=== PATIENT | male | born 1980 | race Caucasian/White ===

== ENCOUNTER 2022-10-10 08:37 | Inpatient (IN) | payer OTHER, SELFPAY ==
--- NOTE | ~2022-10-10 | US_ITS ---
EXAMINATION: US ABDOMEN LIMITED CLINICAL INFORMATION: Right upper quadrant pain. Elevated LFTs. Evaluate for obstruction.. COMPARISON: None available. TECHNIQUE: Real-time imaging of the right upper quadrant abdominal viscera. FINDINGS: PANCREAS: The pancreas is obscured by overlying gas. LIVER: The liver is enlarged in size measuring 22.2 cm in maximum length. The liver contour is normal. Parenchymal echogenicity is normal. No focal hepatic lesion. There is no intrahepatic biliary duct dilatation seen. There is moderate ascites. GALLBLADDER: Normal. The gallbladder is physiologically distended without evidence of stones, sludge, polyps, wall thickening or pericholecystic fluid. COMMON BILE DUCT: Normal in caliber measuring 0 point/0.5 cm in diameter. RIGHT KIDNEY: Normal. No hydronephrosis. No renal calculi or focal parenchymal lesions. The kidney measures 11.5 cm in maximum dimension. FREE FLUID: None. US/US abdomen limited IMPRESSION: 1. Moderate ascites. 2. Hepatomegaly. No focal lesion seen. 3. Rest of the limited abdomen ultrasound is unremarkable.
--- NOTE | ~2022-10-10 | US_ITS ---
EXAMINATION: Ultrasound-guided paracentesis CLINICAL INFORMATION: Ascites COMPARISON: Limited abdominal ultrasound from earlier the same day TECHNIQUE: Procedure and risks and benefits including bleeding, infection and low blood pressure were discussed with the patient and informed consent was obtained. The left lower quadrant was prepped and draped in the usual sterile fashion. The skin and soft tissues were anesthetized with 1% lidocaine plain. Using ultrasound guidance and a 4 Afghan one-step system, access to the ascitic fluid was obtained. 2 L of clear yellow fluid was removed. Diagnostic specimen was sent as requested by the ordering physician. FINDINGS: There is a moderate amount of ascites. US/US paracentesis abd w/image IMPRESSION: Ultrasound-guided paracentesis.
[2022-10-10 08:51] VITALS: BP 132/89; PULSE 104; RESP 20; TEMP 35.9; O2SAT 97; BMI 28.1
[2022-10-10 09:10] LABS: Hematocrit 40.7 % (42.0-52.0); Hemoglobin 14.5 g/dl (14.0-18.0); Mean Corpuscular HGB Conc 35.6 g/dl (31.0-36.0); Mean Corpuscular Hemoglobin 37.3 pg (27.0-33.0); Mean Corpuscular Volume 104.6 fL (80.0-98.0); Mean Platelet Volume 11.4 fL (9.4-12.4); Platelet Count 268 X10*3/uL (160-400); Red Blood Count 3.89 X10*6/uL (4.60-5.80); Red Cell Distribution Width 15.7 % (11.0-16.0)
[2022-10-10 09:15] LABS: WBC ABN SCTR FOR CBC 1
[2022-10-10 09:26] LABS: Alanine Aminotransferase 78 U/L (0-40); Albumin Level 2.9 g/dL (3.5-5.0); Alkaline Phosphatase 320 U/L (39-117); Anion Gap 12 (12-20); Aspartate Amino Transferase 287 U/L (5-37); Bilirubin Direct 0.7 mg/dL (0.0-0.5); Bilirubin Total 1.8 mg/dL (0.0-1.0); Blood Urea Nitrogen 5 mg/dL (9-16); Calcium 8.6 mg/dL (8.4-10.2); Carbon Dioxide 28 mmol/L (22-29); Chloride 103 mmol/L (96-108); Creatinine Clr Calc Pharmacy 137.7; Estimated Glomerular Filt Rate > 60; Glucose Random 126 mg/dL (60-115); Lipase 21 U/L (8-78); Potassium 4.4 mmol/L (3.3-5.1); Sodium 139 mmol/L (135-145); Total Protein 6.9 g/dL (6.5-8.0)
[2022-10-10 09:44] LABS: Band Neutrophils Percent 6 % (3-5); Basophils Percent Manual 1 % (0-2); Eosinophils Percent Manual 2 % (0-4); Lymphocytes Percent Manual 5 % (20-40); Monocytes Percent Manual 4 % (2-11); Neutrophils Percent Manual 82 % (45-73); Platelet Estimate NORMAL (NORMAL); Platelet Morphology Comment NORMAL; RBC Morphology NORMAL
[2022-10-10 10:02] LABS: Basophils Abs Manual 0.1 X10*3/uL (0.0-0.2); Eosinophils Absolute Manual 0.3 X10*3/uL (0.0-0.4); Lymphocytes Absolute Manual 0.7 X10*3/uL (1.2-4.9); Monocytes Absolute Manual 0.6 X10*3/uL (0.1-1.2); Neutrophils Absolute Manual 13.1 X10*3/uL (2.0-8.3); White Blood Count 14.9 X10*3/uL (4.8-10.8)
[2022-10-10 10:41] LABS: INTERNATIONAL NORM RATIO 1.1 (0.9-1.1); Prothrombin Time 13.2 SEC (10.0-13.1)
--- NOTE | 2022-10-10 12:17 | ED.ABDPAIN ---
HPI - Abdominal Pain General Chief Complaint: Abdominal Pain Stated Complaint: Liver issues/Leg swelling Time Seen by Provider: 10/10/22 09:15 Source: patient and family (Mother, Ximena who was a nurse) Mode of arrival: ambulatory Limitations: no limitations History of Present Illness HPI narrative: 42-year-old male who presents emergency department for evaluation abdominal distension, abdominal pain, diarrhea. The patient states that he has been having diarrhea for at least 3 weeks. He was seen [address] [facility] for abdominal distension and had a CT scan that showed fibrosis of the liver. The patient does drink greater than 12 shots of vodka per day. He states that he has been drinking for 2 years with no period of sobriety. He states that he has had frequent episodes of diarrhea which she describes as watery and brown. At least 12 per day. He has had nausea with no vomiting. He was treated with Zofran and Ativan at [facility] with improvement of his nausea. States that he has noted some hematuria but no other symptoms. He denied fever, chills, chest pain, shortness of breath, dyspnea on exertion, frequency, dysuria, black stools or bloody stools. He has noted significant swelling of his lower extremities. Related Data Allergies Allergy/AdvReac Type Severity Reaction Status Date / Time No Known Allergies Allergy Verified 10/10/22 09:39 Review of Systems Review of Systems Yes all other systems are reviewed and are negative [facility] Past Medical History [facility] Narrative: Past medical history: Hypertension. Past surgical history: None. Social history: Patient smokes 1/2 pack cigarettes per day for 25 years. He drinks greater than 10 shots of vodka per day. He denies drug use. Social History Social History Advance Directives: No Advance Directives Information Provided: Yes Physical Exam ED Vital Signs: Vital Signs - 24 hr 10/10/22 08:51 10/10/22 15:20 10/10/22 16:13 Temperature 96.7 F L 97.9 F 97.7 F Pulse Rate 104 H 78 79 Respiratory Rate 20 16 18 Blood Pressure 132/89 130/86 140/89 H Pulse Oximetry 97 97 99 Oxygen Delivery Method Room Air Room Air Room Air BMI result Body Mass Index 28.1 Const General: cooperative and no acute distress Orientation/consciousness: oriented to person and oriented to place Limitations: no limitations HENMT Head: Yes normal to inspection, Yes normocephalic and Yes atraumatic Ears: external ears normal General nose exam: Normal external nose present Face and sinus: Yes normal facial exam Mouth: Normal oral and palatal mucosa present Throat: Yes posterior oropharynx normal Eyes General: appearance normal, both eyes and all related structures Pupils: Equal, round and reactive pupils present Neck Neck: Yes normal visual inspection, Yes no lymphadenopathy, Yes trachea midline and Yes supple Chest Chest palpation & inspection: normal inspection of the chest and normal palpation of entire chest wall Resp Effort & Inspection: normal respiratory effort and able to speak in complete sentences Auscultation: clear to auscultation bilaterally Cardio Rate: regular rate Rhythm: regular rhythm Heart sounds: S1 normal heart sound present, S2 normal heart sound present and no murmurs GI Other: Patient's abdomen is distended secondary to ascites, mild diffuse tenderness, no rebound, no voluntary or involuntary guarding, normoactive bowel sounds General: Yes no CVA tenderness Back/Spine/Pelvis Back: no CVA tenderness Skin General skin exam: no rashes or lesions noted Neuro General: oriented to person and oriented to place Cranial nerves: Yes Equal, round and reactive pupils present Cognition (Neuro): normal cognition Motor exam (neuro): 5/5 motor strength present throughout Extrem General: Yes normal to inspection Psych Appearance: grossly normal Speech and movement: Normal speech and movement present Affect: normal affect Thought content: Normal thought content present Medical Decision Making Medical Decision Making MDM Narrative: 42-year-old male with history of hypertension who drinks greater than 10 shots of vodka per day for 2 years with no period of sobriety who presents emergency department for distended abdomen which is consistent with ascites. Patient has also had frequent diarrhea. I ordered the following tests on the patient: CBC, BMP, liver panel, lipase, PT/INR, PTT, urinalysis, C diff, GI panel, right upper quadrant ultrasound and abdominal ultrasound for ascites. I did discuss large volume paracentesis with Interventional Radiology and possible they will try to do this today. Patient was also ordered to get Librium 100 mg orally to try to prevent alcohol withdrawal. 1604: My interpretation of patient's laboratory evaluation is as follows: WBC elevated 14,900 with left shift-82 neutrophils, 6 bands. Elevated MCV 104.6. Normal coags. Glucose elevated 126. Total bilirubin elevated 1.8. Direct bilirubin elevated 0.7. AST, ALT and alk-phos were elevated 287, 78 and 320. Albumin is low 2.9 lipase was normal 21. Ascites fluid revealed 423 wbc's 20% neutrophils, 8% lymphocytes and 7% monocytes. C diff and GI panel pending. Hepatitis profile pending Ultrasound of the patient's right upper quadrant revealed an enlarged liver and ascites. Patient had paracentesis done by interventional radiologist and had 2 L of ascites fluid drained from his abdomen Given the elevated WBC count in his ascites fluid and his elevated serum WBC with the left shift patient will be treated for spontaneous bacterial peritonitis with ceftriaxone 1 g IV. I will discuss admission with the covering hospitalist, this patient is at high risk for having alcohol withdrawal symptoms as well. 1737: I did discuss the patient over tiger text with the admitting hospitalist, Lindy Mayes. Differential Diagnosis Differential diagnosis includes was not limited to acute hepatitis, alcoholic hepatitis, alcoholic cirrhosis, spontaneous bacterial peritonitis, C difficile colitis, infectious colitis, viral hepatitis Admission/Observation Consideration of admission/observation: Escalation of care including admission/observation considered Consult Healthcare Provider Management of the patient was discussed with: Hospitalist and Irrigation Foreman (Rehab Spec, Dr. Salcido) Lab Data MDM Lab Attestation statement: I reviewed the patient's lab results. 10/10/22 09:03 10/10/22 09:03 Labs: Lab Results 10/10/22 10/10/22 10/10/22 Range/Units 09:03 09:03 10:28 WBC 14.9 H (4.8-10.8) X10*3/uL RBC 3.89 L (4.60-5.80) X10*6/uL Hgb 14.5 (14.0-18.0) g/dl Hct 40.7 L (42.0-52.0) % MCV 104.6 H (80.0-98.0) fL MCH 37.3 H (27.0-33.0) pg MCHC 35.6 (31.0-36.0) g/dl RDW 15.7 (11.0-16.0) % Plt Count 268 (160-400) X10*3/uL MPV 11.4 (9.4-12.4) fL Immature Gran % (Auto) Cancelled Neut % (Auto) Cancelled Lymph % (Auto) Cancelled [place] % (Auto) Cancelled Eos % (Auto) Cancelled Baso % (Auto) Cancelled Lymph # (Auto) Cancelled [place] # (Auto) Cancelled Eos # (Auto) Cancelled Baso # (Auto) Cancelled Abs Immat Gran (auto) Cancelled Absolute Neuts (auto) Cancelled Absolute Nucleated RBC 0.000 (0.0-0.012) X10*3/uL Nucleated RBC % (auto) 0.0 (0.0-0.2) /100WBC Neutrophils % (Manual) 82 H (45-73) % Band Neutrophils % 6 H (3-5) % Lymphocytes % (Manual) 5 L (20-40) % Monocytes % (Manual) 4 (2-11) % Eosinophils % (Manual) 2 (0-4) % Basophils % (Manual) 1 (0-2) % Abs Neuts (Manual) 13.1 H (2.0-8.3) X10*3/uL Lymphocytes # (Manual) 0.7 L (1.2-4.9) X10*3/uL Monocytes # (Manual) 0.6 (0.1-1.2) X10*3/uL Eosinophils # (Manual) 0.3 (0.0-0.4) X10*3/uL Basophils # (Manual) 0.1 (0.0-0.2) X10*3/uL Platelet Estimate NORMAL (NORMAL) Plt Morphology Comment NORMAL RBC Morphology NORMAL PT 13.2 H (10.0-13.1) SEC INR 1.1 (0.9-1.1) APTT 34.0 (26.0-36.4) SEC Sodium 139 (135-145) mmol/L Potassium 4.4 (3.3-5.1) mmol/L Chloride 103 (96-108) mmol/L Carbon Dioxide 28 (22-29) mmol/L Anion Gap 12 (12-20) BUN 5 L (9-16) mg/dL Creatinine 0.76 (0.5-1.4) mg/dL Estim Creat Clear Calc 137.7 Estimated GFR > 60 Random Glucose 126 H (60-115) mg/dL Lactic Acid (0.5-2.0) mmol/L Calcium 8.6 (8.4-10.2) mg/dL Total Bilirubin 1.8 H (0.0-1.0) mg/dL Direct Bilirubin 0.7 H (0.0-0.5) mg/dL AST 287 H (5-37) U/L ALT 78 H (0-40) U/L Alkaline Phosphatase 320 H (39-117) U/L Total Protein 6.9 (6.5-8.0) g/dL Albumin 2.9 L (3.5-5.0) g/dL Lipase 21 (8-78) U/L Peritoneal WBC X10*3/uL Peritoneal RBC X10*6/uL Periton Neutrophils % Periton Lymphocytes % Peritoneal Monocytes % Peritoneal Other Cells % C. difficile Tox B Gene (Negative) C. difficile Toxin A&B (Negative) C. difficile Interpret 10/10/22 10/10/22 10/10/22 Range/Units 14:40 15:13 16:44 WBC (4.8-10.8) X10*3/uL RBC (4.60-5.80) X10*6/uL Hgb (14.0-18.0) g/dl Hct (42.0-52.0) % MCV (80.0-98.0) fL MCH (27.0-33.0) pg MCHC (31.0-36.0) g/dl RDW (11.0-16.0) % Plt Count (160-400) X10*3/uL MPV (9.4-12.4) fL Immature Gran % (Auto) Neut % (Auto) Lymph % (Auto) [place] % (Auto) Eos % (Auto) Baso % (Auto) Lymph # (Auto) [place] # (Auto) Eos # (Auto) Baso # (Auto) Abs Immat Gran (auto) Absolute Neuts (auto) Absolute Nucleated RBC (0.0-0.012) X10*3/uL Nucleated RBC % (auto) (0.0-0.2) /100WBC Neutrophils % (Manual) (45-73) % Band Neutrophils % (3-5) % Lymphocytes % (Manual) (20-40) % Monocytes % (Manual) (2-11) % Eosinophils % (Manual) (0-4) % Basophils % (Manual) (0-2) % Abs Neuts (Manual) (2.0-8.3) X10*3/uL Lymphocytes # (Manual) (1.2-4.9) X10*3/uL Monocytes # (Manual) (0.1-1.2) X10*3/uL Eosinophils # (Manual) (0.0-0.4) X10*3/uL Basophils # (Manual) (0.0-0.2) X10*3/uL Platelet Estimate (NORMAL) Plt Morphology Comment RBC Morphology PT (10.0-13.1) SEC INR (0.9-1.1) APTT (26.0-36.4) SEC Sodium (135-145) mmol/L Potassium (3.3-5.1) mmol/L Chloride (96-108) mmol/L Carbon Dioxide (22-29) mmol/L Anion Gap (12-20) BUN (9-16) mg/dL Creatinine (0.5-1.4) mg/dL Estim Creat Clear Calc Estimated GFR Random Glucose (60-115) mg/dL Lactic Acid 1.2 (0.5-2.0) mmol/L Calcium (8.4-10.2) mg/dL Total Bilirubin (0.0-1.0) mg/dL Direct Bilirubin (0.0-0.5) mg/dL AST (5-37) U/L ALT (0-40) U/L Alkaline Phosphatase (39-117) U/L Total Protein (6.5-8.0) g/dL Albumin (3.5-5.0) g/dL Lipase (8-78) U/L Peritoneal WBC 0.423 X10*3/uL Peritoneal RBC < 0.002 X10*6/uL Periton Neutrophils 20 % Periton Lymphocytes 8 % Peritoneal Monocytes 70 % Peritoneal Other Cells 2 % C. difficile Tox B Gene POSITIVE A* (Negative) C. difficile Toxin A&B Negative (Negative) C. difficile Interpret SEE NOTE Medications Administered Discontinued Medications Generic Name Dose Route Start Last Admin Trade Name Freq PRN Reason Stop Dose Admin Chlordiazepoxide HCl 100 mg 10/10/22 12:15 10/10/22 12:34 Chlordiazepoxide Hcl 25 Mg Capsule PO 10/10/22 12:16 100 mg ONCE ONE Administration Ceftriaxone Sodium 1 gm/ 50 mls @ 100 mls/hr 10/10/22 16:02 10/10/22 16:54 Sodium Chloride IV 10/10/22 16:31 100 mls/hr ONCE ONE Administration Lidocaine HCl 5 ml 10/10/22 15:08 10/10/22 15:08 Lidocaine Hcl 1 % Mpf 5 Ml Vial SUBCUT 10/10/22 15:09 5 ml ONCE ONE Administration Loperamide HCl 2 mg 10/10/22 12:38 10/10/22 12:52 Loperamide Hcl 2 Mg Capsule PO 10/10/22 12:39 2 mg ONCE ONE Administration Discharge Plan Discharge Clinical Impression: Acute alcoholic hepatitis, Ascites, SBP (spontaneous bacterial peritonitis), Alcohol use disorder Patient Disposition: Admitted As Inpatient
[2022-10-10] MEDS: chlordiazePOXIDE HCl 25 MG CAPSULE 100 MG PO (12:34)
[2022-10-10] MEDS: Loperamide HCl 2 MG CAPSULE PO (12:52)
--- NOTE | 2022-10-10 14:10 | PC.NURSE ---
pt going off unit to IR for ultrasound guided paracentecis
[2022-10-10] MEDS: Lidocaine HCl 1 % MPF 5 ML VIAL SUBCUT (15:08)
[2022-10-10 15:20] VITALS: BP 130/86; PULSE 78; RESP 16; TEMP 36.6; O2SAT 97
[2022-10-10 15:30] LABS: MN% 81.2 %; PMN% 18.8 %; WBC Peritoneal Fluid 0.423 X10*3/uL
[2022-10-10 15:34] LABS: RBC Peritoneal Fluid < 0.002 X10*6/uL
[2022-10-10 15:54] LABS: BF Shift QC OK YES; Lymphocyte Peritoneal Fl 8 %; Monocytes Peritoneal Fl 70 %; Neutrophils Peritoneal Fluid 20 %; Other Peritioneal Fl 2 %
[2022-10-10 16:13] VITALS: BP 140/89; PULSE 79; RESP 18; TEMP 36.5; O2SAT 99
[2022-10-10 16:53] LABS: CDiff Gene PCR POSITIVE (Negative)
[2022-10-10] MEDS: cefTRIAXone sodium 1 GM in 0.9 % Sodium Chloride 50 ML IV (16:54)
[2022-10-10 16:55] LABS: CDiff Toxin Negative (Negative)
[2022-10-10 16:56] LABS: CDIFF Internal ctrl Dots and bkg OK (V)
[2022-10-10 17:04] LABS: Lactic Acid 1.2 mmol/L (0.5-2.0)
--- NOTE | 2022-10-10 18:01 | P.HPHOSP_ITS ---
The patient was seen and evaluated with CARISA Steven. I agree with her note, assessment and plan with the following. Rest of evaluations by YARN DRY ROOM WORKER note. History of Present Illness Date of Service: 10/10/22 Attending physician on admission: Stephan Thomas Chief Complaint: abd pain 42-year-old male with history of hypertension, anxiety, and alcohol dependence presents to the ED earlier today for evaluation of diffuse abdominal pain ongoing for about 6 weeks. There has also been up to 12 episodes of watery diarrhea on a daily basis which he has been taking Imodium 4 as well as nausea and vomiting. He denies any melena or hematochezia. He was seen 3 weeks prior at [facility] for abdominal pain/distension with CT scan that showed fibrosis of the liver. He states he has been drinking about 10-12 shots of vodka on a daily basis for nearly 2 years without any period of sobriety. He states his urine has been dark but no dysuria, sudeep blood, increased urinary frequency, or flank pain. No fevers, chills, lightheadedness, shortness of breath, chest pain. He has had significant swelling of the lower extremities bilaterally. On arrival VSS. Leukocytosis of 14.9 with bandemia 6%. Coag studies unremarkable. Renal function normal, electrolyte levels normal. AST 287, ALT 78, total bilirubin 1.8, direct bilirubin 0.7. Abd US performed showing moderate ascites, hepatomegaly without focal lesion. Paracentesis performed revealing 0.423x10^3 WBC, 20% neutrophils, 2L fluid removed. Treated empirically for SBP x 1dose with IV ceftriaxone. GI panel pending. CDiff gene positive, toxin A&B negative. Hepatitic panel pending. In the ED, treated with 100 mg Librium, loperamide, and p.o. vancomycin. Review of Systems Review of Systems: General: No fevers, malaise, unintentional weight loss HEENT: No blurred vision, diplopia. No sore throat, nasal congestion, rhinorrhea, sinus pain, ear pain Cardiovascular: No chest pain, palpitations. +BLE edema Respiratory: No shortness of breath, wheezing, cough GI: +abd pain, +n/v/d. No diarrhea, constipation, melena, hematochezia : No dysuria, hematuria, increased urinary frequency, decreased urinary output MSK: No myalgia, back pain Neuro: No headaches, weakness, paresthesias Skin: No rashes or lesions [facility] Medical History (Updated 10/10/22 @ 19:22 by CARISA Steven) Alcohol use disorder Anxiety Cigarette smoker Hypertension Family History (Updated 10/10/22 @ 18:37 by CARISA Steven) Father COPD (chronic obstructive pulmonary disease) Maternal Grandmother MD (myocardial infarction) Social History (Updated 10/10/22 @ 18:37 by CARISA Steven) Alcohol intake: current Alcohol intake frequency: 3 or more drinks per day Patient Tobacco Use Status: Current everyday Tobacco user Tobacco use type: Cigarette Cigarette Packs Per Day: 0.5 Use of substances other than those prescribed or required for medical reasons: No Advance Directives: No Advance Directives Information Provided: Yes Meds Allergies Allergy/AdvReac Type Severity Reaction Status Date / Time No Known Allergies Allergy Verified 10/10/22 09:39 Active Medications: Current Medications Acetaminophen (Acetaminophen 325 Mg Tablet) 650 mg PO Q6H PRN PRN Reason: Pain, Mild (Pain Scale 1-3) Docusate Sodium (Docusate Sodium 100 Mg Capsule) 100 mg PO DAILY PRN PRN Reason: Constipation Enoxaparin Sodium (Enoxaparin Sodium 40 Mg/0.4 Ml Syringe) 40 mg SUBCUT Q24H [facility] Folic Acid (Folic Acid 1 Mg Tablet) 1 mg PO DAILY [facility] Ondansetron HCl (Ondansetron Hcl 4 Mg/2 Ml Vial) 4 mg IVPUSH Q8H PRN PRN Reason: Nausea and Vomiting Pharmacy Consult (Consult Rx Etoh Phenob Im/Po) 1 each MISCELLANE ONCE PRN; Protocol PRN Reason: Consult order Phenobarbital (Phenobarbital 15 Mg Tablet) 45 mg PO BID MARVEL; Protocol Stop: 10/12/22 21:01 Phenobarbital (Phenobarbital 15 Mg Tablet) 15 mg PO BID MARVEL; Protocol Stop: 10/14/22 21:01 Phenobarbital (Phenobarbital 15 Mg Tablet) 15 mg PO DAILY MARVEL; Protocol Stop: 10/16/22 09:01 Phenobarbital Sodium (Phenobarbital Sodium 130 Mg/Ml Vial Im Q3hx2) 210 mg IM Q3H MARVEL; Protocol Stop: 10/11/22 00:01 Prednisolone Sodium Phosphate (Prednisolone Sodium Phosphate 15 Mg/5 Ml Solution) 40 mg PO DAILY MARVEL Sodium Chloride (0.9 % Sodium Chloride Flush 3 Ml Syringe) 3 ml IVFLUSH QSHIFT [place] Thiamine HCl (Thiamine Hcl 100 Mg Tablet) 100 mg PO DAILY [facility] Vancomycin HCl (Vancomycin Hcl 125 Mg Capsule) 125 mg PO Q6H [facility] Home Medications Medication Instructions Recorded Confirmed Last Taken Type atenolol 50 mg tablet 25 mg PO DAILY 10/10/22 10/10/22 Unknown History multivitamin 1 tab PO DAILY 10/10/22 10/10/22 Unknown History potassium chloride 10 mEq 20 meq PO BID 10/10/22 10/10/22 Unknown History tablet,extended release Physical Exam Vital Signs and Narrative: Vital Signs: Last Vital Signs Temp 97.7 F 10/10/22 16:13 Pulse 79 10/10/22 16:13 Resp 18 10/10/22 16:13 BP 140/89 H 10/10/22 16:13 Pulse Ox 99 10/10/22 16:13 O2 Del Method Room Air 10/10/22 16:13 BMI result Body Mass Index 28.1 Constitutional - Awake and Alert, No apparent distress Eyes - PERRLA, EOMI Cardiovascular - S1S2, RRR, 3+pitting edema BLE Respiratory - Normal lung expansion, Normal respiratory effort, No respiratory distress, CTA bilaterally Gastrointestinal - softly distended with diffuse ttp without guarding or rebound. +BS Extremities - no calf tenderness bilaterally, no swelling Skin - Warm/Dry Neurological - Alert & oriented x3, CN II-XII in tact, 5/5 strength BUE and BLE Psychological - Appropriate affect Results Labs 10/10/22 09:03 10/10/22 09:03 Labs: Laboratory Results - last 24 hr 10/10/22 10/10/22 10/10/22 09:03 09:03 10:28 MCV 104.6 H MCH 37.3 H MCHC 35.6 RDW 15.7 Plt Count 268 MPV 11.4 Immature Gran % (Auto) Cancelled Neut % (Auto) Cancelled Lymph % (Auto) Cancelled [place] % (Auto) Cancelled Eos % (Auto) Cancelled Baso % (Auto) Cancelled Lymph # (Auto) Cancelled [place] # (Auto) Cancelled Eos # (Auto) Cancelled Baso # (Auto) Cancelled Abs Immat Gran (auto) Cancelled Absolute Neuts (auto) Cancelled Absolute Nucleated RBC 0.000 Nucleated RBC % (auto) 0.0 Neutrophils % (Manual) 82 H Band Neutrophils % 6 H Lymphocytes % (Manual) 5 L Monocytes % (Manual) 4 Eosinophils % (Manual) 2 Basophils % (Manual) 1 Abs Neuts (Manual) 13.1 H Lymphocytes # (Manual) 0.7 L Monocytes # (Manual) 0.6 Eosinophils # (Manual) 0.3 Basophils # (Manual) 0.1 Platelet Estimate NORMAL Plt Morphology Comment NORMAL RBC Morphology NORMAL PT 13.2 H INR 1.1 APTT 34.0 Anion Gap 12 Estim Creat Clear Calc 137.7 Estimated GFR > 60 Random Glucose 126 H Lactic Acid Calcium 8.6 Total Bilirubin 1.8 H Direct Bilirubin 0.7 H AST 287 H ALT 78 H Alkaline Phosphatase 320 H Total Protein 6.9 Albumin 2.9 L Lipase 21 Peritoneal WBC Peritoneal RBC Periton Neutrophils Periton Lymphocytes Peritoneal Monocytes Peritoneal Other Cells C. difficile Tox B Gene C. difficile Toxin A&B C. difficile Interpret 10/10/22 10/10/22 10/10/22 14:40 15:13 16:44 MCV MCH MCHC RDW Plt Count MPV Immature Gran % (Auto) Neut % (Auto) Lymph % (Auto) [place] % (Auto) Eos % (Auto) Baso % (Auto) Lymph # (Auto) [place] # (Auto) Eos # (Auto) Baso # (Auto) Abs Immat Gran (auto) Absolute Neuts (auto) Absolute Nucleated RBC Nucleated RBC % (auto) Neutrophils % (Manual) Band Neutrophils % Lymphocytes % (Manual) Monocytes % (Manual) Eosinophils % (Manual) Basophils % (Manual) Abs Neuts (Manual) Lymphocytes # (Manual) Monocytes # (Manual) Eosinophils # (Manual) Basophils # (Manual) Platelet Estimate Plt Morphology Comment RBC Morphology PT INR APTT Anion Gap Estim Creat Clear Calc Estimated GFR Random Glucose Lactic Acid 1.2 Calcium Total Bilirubin Direct Bilirubin AST ALT Alkaline Phosphatase Total Protein Albumin Lipase Peritoneal WBC 0.423 Peritoneal RBC < 0.002 Periton Neutrophils 20 Periton Lymphocytes 8 Peritoneal Monocytes 70 Peritoneal Other Cells 2 C. difficile Tox B Gene POSITIVE A* C. difficile Toxin A&B Negative C. difficile Interpret SEE NOTE Imaging Radiologist's Impressions: Impressions Abdomen Ultrasound 10/10/22 11:43 IMPRESSION: 1. Moderate ascites. 2. Hepatomegaly. No focal lesion seen. 3. Rest of the limited abdomen ultrasound is unremarkable. Paracentesis Ultrasound 10/10/22 14:55 IMPRESSION: Ultrasound-guided paracentesis. Assessment and Plan (1) Alcohol use disorder: Status: Acute (2) Acute alcoholic hepatitis: Status: Acute (3) C. difficile colitis: Status: Acute Plan 42-year-old male with history of hypertension, anxiety, and alcohol dependence admitted for acute alcoholic hepatitis, CDiff, and etoh withdrawal #Acute alcoholic hepatitis -Total bili 1.8, direct bilirubin 0.7, AST 287, ALT 78, alkaline phosphatase 320 -Maddrey's score 16. Defer steroids at this time -Paracentesis performed -2L. No SBP -Initiate spironolactone 12.5mg, increase as tolerated. Consider adding lasix once diarrhea resolved -Appreciate GI input -Ondansetron prn -Pain management -hepatitis panel pending #Acute CDiff colitis -PO vanco (initiated 10/10) -Apprecaite GI input -clear liquid diet, advance as tolerated #Alcohol dependence -Monitor on CIWA -phenobarb per protocol -Addiction med consult #HTN -continue atenolol DVT prophylaxis- lovenox Full code Pt requires inpt stay at least 2 midnights for management of acute alcoholic hepatitis and acute Cdiff colitis Time Spent With Patient Time: Total time managing care of this patient today ____ minutes. Quality Stroke Does the patient have a stroke diagnosis?: No VTE Prior VTE?: No VTE Risk Level:: Medical - moderate - high VTE Device Contraindication: Treatment Not Indicated VTE Drug Contraindication: N/A - Med Ordered
--- NOTE | 2022-10-10 18:19 | PHA.MEDREC ---
Pharmacy Consult ? Medication Reconciliation Pharmacy has completed the medication reconciliation.
[2022-10-10] MEDS: prednisoLONE sodium phosphate 15 MG/5 ML SOLUTION 40 MG PO (18:24)
[2022-10-10] MEDS: Thiamine HCL 100 MG TABLET PO (18:24)
[2022-10-10] MEDS: vancomycin HCL 125 MG CAPSULE 250 MG PO (18:24)
[2022-10-10] MEDS: Folic Acid 1 MG TABLET PO (18:24)
[2022-10-10] MEDS: PHENobarbitaL sodium 130 MG/ML IM ONCE 283 MG IM (18:24)
[2022-10-10] MEDS: Enoxaparin Sodium 40 MG/0.4 ML SYRINGE SUBCUT (18:25)
[2022-10-10 18:39] VITALS: BP 133/93; PULSE 89; RESP 16; TEMP 36.7; O2SAT 97
[2022-10-10 21:04] VITALS: BP 118/79; PULSE 78; RESP 18; TEMP 36.6; O2SAT 95
[2022-10-10] MEDS: Spironolactone 25 MG TABLET 12.5 MG PO (21:08)
[2022-10-10] MEDS: Nicotine 14 MG PATCH.TD24 TRANSDERMA (21:08)
[2022-10-10] MEDS: PHENobarbitaL sodium 130 MG/ML VIAL IM Q3Hx2 210 MG IM (21:09)
--- NOTE | 2022-10-10 21:10 | PC.NURSE ---
This investment underwriter assumed care of this Pt at 1900. Pt A&Ox4, denies any pain. Pt ambulated to BR with steady gait. VSS. CIWA score 4. Medicated per JUL. C-diff precautions.
[2022-10-10] MEDS: 0.9 % Sodium Chloride Flush 3 ML SYRINGE IVFLUSH (23:01)
[2022-10-10] MEDS: vancomycin HCL 125 MG CAPSULE PO (23:01)
[2022-10-10 23:03] VITALS: BP 124/88; PULSE 86; RESP 18; O2SAT 96
--- NOTE | 2022-10-10 23:28 | PC.NURSE ---
Nurse to nurse report given Gabriela, Pt will be transported to room 457, Pt aware of plan.
[2022-10-11] VITALS: BP 125/82; PULSE 88; RESP 20; TEMP 36.1; O2SAT 96
[2022-10-11] MEDS: PHENobarbitaL sodium 130 MG/ML VIAL IM Q3Hx2 210 MG IM (00:27)
[2022-10-11 01:45] VITALS: BMI 28.1
[2022-10-11 04:45] LABS: Hepatitis A Antibody IgM 0.23 Index (0-0.79); Hepatitis B Core Antibody Nonreactive (Nonreactive); ~Hepatitis A Antibody IgM Nonreactive (Nonreactive); ~Hepatitis B Surface Antibody NONREACTIVE (Nonreactive); ~Hepatitis C Antibody Nonreactive (Nonreactive)
[2022-10-11 05:33] LABS: HBc Num1 0.15 S/CO (0.00-0.79); HBsAGNum1 0.32 S/CO (0.00-0.99); ~HepC Num1 0.18 S/CO (0.00-0.79)
[2022-10-11 05:34] LABS: Hepatitis B Surface Antigen Nonreactive (Negative)
[2022-10-11 05:57] LABS: MANUAL DIFF FLAG NO
[2022-10-11 06:20] LABS: Alanine Aminotransferase 54 U/L (0-40); Albumin Level 2.5 g/dL (3.5-5.0); Alkaline Phosphatase 257 U/L (39-117); Anion Gap 13 (12-20); Aspartate Amino Transferase 165 U/L (5-37); Bilirubin Total 1.2 mg/dL (0.0-1.0); Blood Urea Nitrogen 6 mg/dL (9-16); Calcium 8.3 mg/dL (8.4-10.2); Carbon Dioxide 23 mmol/L (22-29); Chloride 104 mmol/L (96-108); Creatinine Clr Calc Pharmacy 161.1; Estimated Glomerular Filt Rate > 60; Glucose Random 130 mg/dL (60-115); Potassium 4.1 mmol/L (3.3-5.1); Sodium 136 mmol/L (135-145); Total Protein 5.9 g/dL (6.5-8.0)
[2022-10-11] MEDS: vancomycin HCL 125 MG CAPSULE PO ×4 (06:21→23:08)
[2022-10-11 06:22] LABS: Basophils Percent Auto 0.1 % (0-2); Hematocrit 38.2 % (42.0-52.0); Hemoglobin 13.4 g/dl (14.0-18.0); Imm Gran Abs Auto 0.04 X10*3/uL (0.00-0.03); Imm Gran Pct Auto 0.4 % (0.0-0.4); Lymphocytes Absolute Auto 1.5 X10*3/uL (1.2-4.9); Lymphocytes Percent Auto 14.8 % (20-40); Mean Corpuscular HGB Conc 35.1 g/dl (31.0-36.0); Mean Corpuscular Hemoglobin 36.5 pg (27.0-33.0); Mean Corpuscular Volume 104.1 fL (80.0-98.0); Mean Platelet Volume 11.8 fL (9.4-12.4); Monocytes Absolute Auto 0.4 X10*3/uL (0.1-1.2); Monocytes Percent Auto 4.3 % (2-11); Neutrophils Absolute Auto 8.2 x10*3/uL (2.0-8.3); Neutrophils Percent Auto 80.4 % (45-73); Platelet Count 208 X10*3/uL (160-400); Red Blood Count 3.67 X10*6/uL (4.60-5.80); Red Cell Distribution Width 14.9 % (11.0-16.0); White Blood Count 10.2 X10*3/uL (4.8-10.8)
[2022-10-11 07:38] VITALS: BP 142/57; PULSE 80; RESP 16; TEMP 36.9; O2SAT 96
--- NOTE | 2022-10-11 09:05 | MHC.CM.PN ---
CM met with Patient at bedside. Patient lives in a 2 family house with his Brother living upstairs. 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 Home self care vs Recovery Team intervention r/t ETOH is the tentative plan and CM has initiated and will follow for dc planning. Patient is not Covid vax'd and his PCP is Dr. Otoniel Rockwell.
[2022-10-11] MEDS: atenoloL 25 MG TABLET PO (10:51)
[2022-10-11] MEDS: PHENobarbitaL 15 MG TABLET 45 MG PO ×2 (10:51→23:07)
[2022-10-11] MEDS: Multivitamin TABLET 1 TAB PO (10:52)
[2022-10-11] MEDS: Thiamine HCL 100 MG TABLET PO (10:52)
[2022-10-11] MEDS: Folic Acid 1 MG TABLET PO (10:53)
[2022-10-11] MEDS: Spironolactone 25 MG TABLET 12.5 MG PO (10:53)
[2022-10-11] MEDS: Nicotine 14 MG PATCH.TD24 TRANSDERMA (10:53)
--- NOTE | 2022-10-11 10:53 | P.PNIM_ITS ---
Subjective Subjective Date of Service: 10/11/22 Interval History: still with diarrhea, abd pain improved Physical Exam Vital Signs: Vital Signs: Last Vital Signs Temp 98.4 F 10/11/22 07:38 Pulse 80 10/11/22 07:38 Resp 16 10/11/22 07:38 BP 142/57 H 10/11/22 07:38 Pulse Ox 96 10/11/22 07:38 O2 Del Method Room Air 10/11/22 07:38 BMI result Body Mass Index 28.1 General: AO X 3, no acute distress Resp: CTA bilateral, no accessory muscles used CVS: S1,S2,RRR GI: soft, non tender, non distended Neuro: motor grossly intact, alert Psych: appropriate affect, appropriate insight Objective Data Active Medications Acetaminophen (Acetaminophen 325 Mg Tablet) 650 mg PO Q6H PRN PRN Reason: Pain, Mild (Pain Scale 1-3) Atenolol (Atenolol 25 Mg Tablet) 25 mg PO DAILY [facility]; Protocol Docusate Sodium (Docusate Sodium 100 Mg Capsule) 100 mg PO DAILY PRN PRN Reason: Constipation Enoxaparin Sodium (Enoxaparin Sodium 40 Mg/0.4 Ml Syringe) 40 mg SUBCUT Q24H [facility] Last Admin: 10/10/22 18:25 Dose: 40 mg Documented By: MC Folic Acid (Folic Acid 1 Mg Tablet) 1 mg PO DAILY [facility] Last Admin: 10/10/22 18:24 Dose: 1 mg Documented By: MC Loperamide HCl (Loperamide Hcl 2 Mg Capsule) 2 mg PO Q4H PRN PRN Reason: Diarrhea Multivitamins/Vitamin C (Multivitamin Tablet) 1 tab PO DAILY [facility] Nicotine (Nicotine 14 Mg Patch.Td24) 14 mg TRANSDERMA DAILY [facility] Last Admin: 10/10/22 21:08 Dose: 14 mg Documented By: SERRANLio Ondansetron HCl (Ondansetron Hcl 4 Mg/2 Ml Vial) 4 mg IVPUSH Q8H PRN PRN Reason: Nausea and Vomiting Pharmacy Consult (Consult Rx Etoh Phenob Im/Po) 1 each MISCELLANE ONCE PRN; Protocol PRN Reason: Consult order Phenobarbital (Phenobarbital 15 Mg Tablet) 45 mg PO BID [facility]; Protocol Stop: 10/12/22 21:01 Phenobarbital (Phenobarbital 15 Mg Tablet) 15 mg PO BID [facility]; Protocol Stop: 10/14/22 21:01 Phenobarbital (Phenobarbital 15 Mg Tablet) 15 mg PO DAILY [facility]; Protocol Stop: 10/16/22 09:01 Sodium Chloride (0.9 % Sodium Chloride Flush 3 Ml Syringe) 3 ml IVFLUSH QSHIFT [facility] Last Admin: 10/10/22 23:01 Dose: 3 ml Documented By: WESLEY Spironolactone (Spironolactone 25 Mg Tablet) 12.5 mg PO DAILY [facility]; Protocol Last Admin: 10/10/22 21:08 Dose: 12.5 mg Documented By: WESLEY Thiamine HCl (Thiamine Hcl 100 Mg Tablet) 100 mg PO DAILY [facility] Last Admin: 10/10/22 18:24 Dose: 100 mg Documented By: MC Vancomycin HCl (Vancomycin Hcl 125 Mg Capsule) 125 mg PO Q6H [facility] Last Admin: 10/11/22 06:21 Dose: 125 mg Documented By: ANTOIC Labs 10/11/22 05:52 10/11/22 05:52 Labs: Laboratory Results - last 24 hr 10/10/22 10/10/22 10/10/22 14:40 15:13 16:44 MCV MCH MCHC RDW Plt Count MPV Immature Gran % (Auto) Neut % (Auto) Lymph % (Auto) [place] % (Auto) Eos % (Auto) Baso % (Auto) Lymph # (Auto) [place] # (Auto) Eos # (Auto) Baso # (Auto) Abs Immat Gran (auto) Absolute Neuts (auto) Absolute Nucleated RBC Nucleated RBC % (auto) Anion Gap Estim Creat Clear Calc Estimated GFR Random Glucose Lactic Acid 1.2 Calcium Total Bilirubin AST ALT Alkaline Phosphatase Total Protein Albumin Peritoneal WBC 0.423 Peritoneal RBC < 0.002 Periton Neutrophils 20 Periton Lymphocytes 8 Peritoneal Monocytes 70 Peritoneal Other Cells 2 C. difficile Tox B Gene POSITIVE A* C. difficile Toxin A&B Negative C. difficile Interpret SEE NOTE Hepatitis A IgM Ab Hep Bs Antigen Hep Bs Antibody Hep B Core Total Ab Hepatitis C Ab (EIA) 10/10/22 10/11/22 10/11/22 16:44 05:52 05:52 MCV 104.1 H MCH 36.5 H MCHC 35.1 RDW 14.9 Plt Count 208 MPV 11.8 Immature Gran % (Auto) 0.4 Neut % (Auto) 80.4 H Lymph % (Auto) 14.8 L [place] % (Auto) 4.3 Eos % (Auto) 0.0 Baso % (Auto) 0.1 Lymph # (Auto) 1.5 [place] # (Auto) 0.4 Eos # (Auto) 0.0 Baso # (Auto) 0.0 Abs Immat Gran (auto) 0.04 H Absolute Neuts (auto) 8.2 Absolute Nucleated RBC 0.000 Nucleated RBC % (auto) 0.0 Anion Gap 13 Estim Creat Clear Calc 161.1 Estimated GFR > 60 Random Glucose 130 H Lactic Acid Calcium 8.3 L Total Bilirubin 1.2 H AST 165 H ALT 54 H Alkaline Phosphatase 257 H Total Protein 5.9 L Albumin 2.5 L Peritoneal WBC Peritoneal RBC Periton Neutrophils Periton Lymphocytes Peritoneal Monocytes Peritoneal Other Cells C. difficile Tox B Gene C. difficile Toxin A&B C. difficile Interpret Hepatitis A IgM Ab Nonreactive Hep Bs Antigen Nonreactive Hep Bs Antibody NONREACTIVE Hep B Core Total Ab Nonreactive Hepatitis C Ab (EIA) Nonreactive Microbiology Microbiology Results: Microbiology 10/10/22 14:40 Gram Stain - Final Ascites Fluid Routine Culture - Preliminary No growth to date. Anaerobic Culture - Preliminary No growth to date. Assessment and Plan (1) Alcohol use disorder: Status: Acute Plan 42M PMH of hypertension, anxiety, and alcohol dependence admitted with abd pain and diarrhea Acute alcoholic hepatitis mild, avoid etoh, monitor lfts alcohol dependence with withdrawal phenobarb, ciwa acute symptomatic acsites due to above s/p paracentesis, negative for sbp continue aldactone chronic diarrhea imodium prn outpatient follow up cdif pcr positive, toxin negative no acute cdif colitis colonizer only HTN continue atenolol DVT prophylaxis- lovenox Full code reason for continued hospitalization:active diarrhea, awaiting solid po tolerance Time Spent With Patient Time: Total time managing care of this patient today ____ minutes. Quality Stroke Does the patient have a stroke diagnosis?: No VTE Prior VTE?: No VTE Risk Level:: Medical - moderate - high VTE Device Contraindication: Treatment Not Indicated VTE Drug Contraindication: N/A - Med Ordered
[2022-10-11] MEDS: Loperamide HCl 2 MG CAPSULE PO ×2 (10:57→17:39)
[2022-10-11] MEDS: 0.9 % Sodium Chloride Flush 3 ML SYRINGE IVFLUSH ×3 (10:58→23:09)
[2022-10-11 12:47] LABS: Adenovirus F 40/41 Not Detected (Not Detect.); Astrovirus Not Detected (Not Detect.); Campylobacter Not Detected (Not Detect.); Cryptosporidium Not Detected (Not Detect.); Cyclospora cayetanensis Not Detected (Not Detect.); E. coli EAEC Not Detected (Not Detect.); E. coli EPEC Not Detected (Not Detect.); E. coli ETEC Not Detected (Not Detect.); E. coli STEC Not Detected (Not Detect.); Entamoeba histolytica Not Detected (Not Detect.); Giardia lamblia Not Detected (Not Detect.); Norovirus GI/GII Not Detected (Not Detect.); Plesiomonas shigelloides Not Detected (Not Detect.); Rotavirus A Not Detected (Not Detect.); Salmonella Not Detected (Not Detect.); Sapovirus Not Detected (Not Detect.); Shigella sp./EIEC Not Detected (Not Detect.); Vibrio Not Detected (Not Detect.); Vibrio Cholerae Not Detected (Not Detect.); Yersinia enterocolitica Not Detected (Not Detect.)
[2022-10-11 15:33] VITALS: BP 104/51; PULSE 96; RESP 17; TEMP 36.8; O2SAT 96
--- NOTE | 2022-10-11 16:04 | MHC.RECOVRN ---
This technical proposal writer met with patient after addiction consult was placed. Patient reports drinking daily 10 nips ETOH. Patient states in the past has not accessed levels of treatment for ETOH, no hx of ATS, CSS, TSS. Patient states has tried campral in the past, prescribed by PCP, patient states it was not helpful. Patient reports open to discussing harm reduction and recovery supports. Patient states has quit in the past knows what to do, is more interested in medications to help with physical symptoms like anxiety . Patient agreeable to addiction/recovery team returning with resources to review at the bedside.
[2022-10-11] MEDS: Enoxaparin Sodium 40 MG/0.4 ML SYRINGE SUBCUT (17:39)
[2022-10-11 19:47] VITALS: BP 119/69; PULSE 90; RESP 18; TEMP 36.8; O2SAT 95
[2022-10-12] VITALS: BP 115/64; PULSE 80; RESP 20; TEMP 36.9; O2SAT 97
[2022-10-12 06:08] LABS: Hematocrit 36.7 % (42.0-52.0); Hemoglobin 13.1 g/dl (14.0-18.0); Mean Corpuscular HGB Conc 35.7 g/dl (31.0-36.0); Mean Corpuscular Hemoglobin 37.3 pg (27.0-33.0); Mean Corpuscular Volume 104.6 fL (80.0-98.0); Mean Platelet Volume 11.9 fL (9.4-12.4); Platelet Count 187 X10*3/uL (160-400); Red Blood Count 3.51 X10*6/uL (4.60-5.80); White Blood Count 10.7 X10*3/uL (4.8-10.8)
[2022-10-12 06:29] LABS: Alanine Aminotransferase 47 U/L (0-40); Albumin Level 2.4 g/dL (3.5-5.0); Alkaline Phosphatase 245 U/L (39-117); Anion Gap 11 (12-20); Aspartate Amino Transferase 146 U/L (5-37); Bilirubin Direct 0.5 mg/dL (0.0-0.5); Bilirubin Total 1.3 mg/dL (0.0-1.0); Blood Urea Nitrogen 6 mg/dL (9-16); Calcium 7.9 mg/dL (8.4-10.2); Carbon Dioxide 25 mmol/L (22-29); Chloride 105 mmol/L (96-108); Creatinine Clr Calc Pharmacy 151.8; Estimated Glomerular Filt Rate > 60; Glucose Fasting 96 mg/dL (60-99); Potassium 3.6 mmol/L (3.3-5.1); Sodium 137 mmol/L (135-145); Total Protein 5.7 g/dL (6.5-8.0)
[2022-10-12 07:15] VITALS: BP 101/57; PULSE 86; RESP 16; TEMP 36.3; O2SAT 98
[2022-10-12] MEDS: vancomycin HCL 125 MG CAPSULE PO ×2 (07:32→09:54)
--- NOTE | 2022-10-12 09:34 | P.DS_ITS ---
DS: Providers Provider Date of Service: 10/12/22 Date of admission: 10/10/22 17:44 Primary care physician: Otoniel Rockwell MD Consults: 10/10/22 12:15 Consult to Care Team Stat Comment: Reason for consultation: New onset ascites, alcohol use disorder 10/10/22 16:29 Consult to Gastroenterology Stat Consulting Provider: Charlotte Salcido Reason for consultation: Alcohol use disorder, elevated LFTs, ascites, SBP Has provider been notified: Yes 10/10/22 17:49 Addiction Medicine Routine Consulting Provider: Addiction Covering Reason for consultation: etoh dependence DS: Diagnosis Discharge Diagnosis (1) Alcohol use disorder: Status: Acute DS: Summary Hospital Course Hospital Course: form initial hpi: 42-year-old male with history of hypertension, anxiety, and alcohol dependence presents to the ED earlier today for evaluation of diffuse abdominal pain ongoing for about 6 weeks.? There has also been up to 12 episodes of watery diarrhea on a daily basis which he has been taking Imodium 4 as well as nausea and vomiting.? He denies any melena or hematochezia.? He was seen 3 weeks prior at [facility] for abdominal pain/distension with CT scan that showed fibrosis of the liver.? He states he has been drinking about 10-12 shots of vodka on a daily basis for nearly 2 years without any period of sobriety.? He states his urine has been dark but no dysuria, sudeep blood, increased urinary frequency, or flank pain.? No fevers, chills, lightheadedness, shortness of breath, chest pain.? He has had significant swelling of the lower extremities bilaterally. On arrival VSS.? Leukocytosis of 14.9 with bandemia 6%.? Coag studies unremarkable.? Renal function normal, electrolyte levels normal.? AST 287, ALT 78, total bilirubin 1.8, direct bilirubin 0.7. Abd US performed showing moderate ascites, hepatomegaly without focal lesion. Paracentesis performed revealing 0.423x10^3 WBC, 20% neutrophils, 2L fluid removed. Treated empirically for SBP x 1dose with IV ceftriaxone. GI panel pending. CDiff gene positive, toxin A&B negative. Hepatitic panel pending.? In the ED, treated with 100 mg Librium, loperamide, and p.o. vancomycin. hospital course: Patient was admitted for alcohol dependence with acute alcohol hepatitis and withdrawal complicated by ascites. was treated with phenobarb, ciwa 0 at discharge. asites was drained and negative for SBP. patient educated on etoh avoidance. for chronic diarrhea, was treated with imodium, can follow up outpatient with gi, was noted to have cdif pcr positive, but not active infection (negative toxin). for htn continued on atenolo. patient feeling better and will eb discharged home. Time Spent with Patient Time attestation: Total time managing care of this patient today ____ minutes. Discharge coordination time: Greater than 30 minutes Quality: Safe Use of Opioids Does Pt have an Active Cancer Diagnosis on the Problem List?: No Quality: Stroke Does the patient have a stroke diagnosis?: No Physical Exam Vital Signs: Vital Signs: Last Vital Signs Temp 97.3 F 10/12/22 07:15 Pulse 86 10/12/22 07:15 Resp 16 10/12/22 07:15 BP 101/57 L 10/12/22 07:15 Pulse Ox 98 10/12/22 07:15 O2 Del Method Room Air 10/12/22 07:15 BMI result Body Mass Index 28.1 General: AO X 3, no acute distress Resp: CTA bilateral, no accessory muscles used CVS: S1,S2,RRR GI: soft, non tender, non distended Neuro: motor grossly intact, alert Psych: appropriate affect, appropriate insight DS: Data Data Completed and Pending Labs on day of discharge: Laboratory Results - last 24 hr 10/10/22 10/12/22 10/12/22 15:13 05:55 05:55 WBC 10.7 RBC 3.51 L Hgb 13.1 L Hct 36.7 L MCV 104.6 H MCH 37.3 H MCHC 35.7 RDW 15.0 Plt Count 187 MPV 11.9 Absolute Nucleated RBC 0.000 Nucleated RBC % (auto) 0.0 Sodium 137 Potassium 3.6 Chloride 105 Carbon Dioxide 25 Anion Gap 11 L BUN 6 L Creatinine 0.69 Estim Creat Clear Calc 151.8 Estimated GFR > 60 Fasting Glucose 96 Calcium 7.9 L Total Bilirubin 1.3 H Direct Bilirubin 0.5 AST 146 H ALT 47 H Alkaline Phosphatase 245 H Total Protein 5.7 L Albumin 2.4 L Stl C. cayetanensis PCR Not Detected Stool Rotavirus A PCR Not Detected Stl Adenov F 40/41 PCR Not Detected Stool Astrovirus (PCR) Not Detected Stool Campylobacter PCR Not Detected Stool Cryptosporidium PCR Not Detected Stl Sh Tox Pr E STEC PCR Not Detected Stool E coli O157 PCR Not applicable Stl Enterotoxigenic E PCR Not Detected Stool EPEC (PCR) Not Detected Stool EAEC (PCR) Not Detected Stl E. histolytica PCR Not Detected Stool Giardia Lamblia PCR Not Detected Stl P. shigelloides PCR Not Detected Stool Salmonella PCR Not Detected Stool Sapovirus (PCR) Not Detected Stl Shigella/EIEC PCR Not Detected St Y.enterocolitica PCR Not Detected Stool Vibrio (PCR) Not Detected Stl Vibrio cholerae PCR Not Detected Stl Norovirus GI/GII PCR Not Detected Preliminary micro results at discharge 10/10/22 14:40 Anaerobic Culture - Preliminary Ascites Fluid No growth to date. 10/10/22 13:34 Blood Culture - Preliminary Blood - Venous No growth after 24 hours. 10/10/22 13:35 Blood Culture - Preliminary Blood - Venous No growth after 24 hours. Discharge Plan Discharge Anticipated Discharge Date/Time: 10/12/22 09:32 Patient Disposition: Home, Self-Care Discharge Diagnosis: etoh withdrawal Referrals: Otoniel Rockwell MD [Primary Care Provider] - 1 Week Charlotte Salcido MD [Physician] - 1 Week Discharge Medications: Continued multivitamin Tablet 1 tab PO DAILY potassium chloride 10 mEq tablet extended release 20 meq PO BID atenolol 50 mg tablet 25 mg PO DAILY Discharge Orders: Discharge Order (Routine); Ordered 10/12/22 Ordered By: Ernesto Del Angel Diet: Advance to usual diet Activity on Discharge: no etoh Stand Alone Forms: Patient Portal Discharge page Care Plan Goals: recovery Health Concerns: etoh, diarrhea Plan of Treatment: no etoh, follow up gi for chronic diarrhea Assessment: see above
[2022-10-12] MEDS: 0.9 % Sodium Chloride Flush 3 ML SYRINGE IVFLUSH (09:53)
[2022-10-12] MEDS: Thiamine HCL 100 MG TABLET PO (09:54)
[2022-10-12] MEDS: Loperamide HCl 2 MG CAPSULE PO (09:55)
[2022-10-12] MEDS: PHENobarbitaL 15 MG TABLET 45 MG PO (09:55)
[2022-10-12] MEDS: Multivitamin TABLET 1 TAB PO (09:55)
[2022-10-12] MEDS: Spironolactone 25 MG TABLET 12.5 MG PO (09:55)
[2022-10-12] MEDS: atenoloL 25 MG TABLET PO (09:55)
[2022-10-12] MEDS: Folic Acid 1 MG TABLET PO (09:56)
[2022-10-12] MEDS: Nicotine 14 MG PATCH.TD24 TRANSDERMA (09:59)
--- NOTE | 2022-10-12 10:32 | MHC.CM.PN ---
Patient has been medically cleared for dc to home today, self care.
--- NOTE | 2022-10-12 11:30 | MHC.RECOVRN ---
This film writer met w/ patient, patient alert, awake, getting ready for the day. This film writer and patient reviewed recovery resources, harm reduction, medications for alcohol use. Patient educated related to treatment of alcohol withdrawal. Patient verbalized understanding. Patient reports goal of abstinence, patient states has supportive friends and family in regard to recovery. Patient reports has PCP whom will f/u with in regard to anxiety. Patient declined outpatient appt at [facility], declined referral to recovery supports. Patient encouraged to call the [facility] with any questions/concerns or need for recovery supports. Patient verbalized understanding. Resource packet left with patient to bring home at d/c.
== END 2022-10-12 12:18 | disposition home or self-care (01) | DRG 280 ==
LOC: HO.ED 17:37 → HO.EDOVER 18:19 → HO.IMC 22:14
PROVIDERS: Admitting Provider Physician Assistant; Emergency Provider Emergency Medicine Emergency Medical Services; PCP Internal Medicine; Visit Provider Internal Medicine
DX: K70.11 Alcoholic hepatitis with ascites (principal); F10.20 Alcohol dependence, uncomplicated; F17.210 Nicotine dependence, cigarettes, uncomplicated; K52.9 Noninfective gastroenteritis and colitis, unspecified; Z71.6 Tobacco abuse counseling; Z79.899 Other long term (current) drug therapy
CPT/HCPCS: 36415; 49083; 76705; 80048; 80053; 80076; 83605; 83690; 85007; 85025; 85027; 85610; 85730; 86704; 86706; 86709; 86803; 87040; 87070; 87073; 87205; 87324; 87340; 87493; 87507; 89051; 99285; J0696; J1650; J2560

== ENCOUNTER 2022-11-07 11:30 | Outpatient (REF) | payer OTHER, SELFPAY ==
[2022-11-07 12:54] LABS: Hematocrit 43.6 % (42.0-52.0); Hemoglobin 15.5 g/dl (14.0-18.0); Mean Corpuscular HGB Conc 35.6 g/dl (31.0-36.0); Mean Corpuscular Hemoglobin 35.6 pg (27.0-33.0); Mean Platelet Volume 12.8 fL (9.4-12.4); Platelet Count 215 X10*3/uL (160-400); Red Blood Count 4.36 X10*6/uL (4.60-5.80); Red Cell Distribution Width 13.1 % (11.0-16.0); White Blood Count 12.6 X10*3/uL (4.8-10.8)
[2022-11-07 13:23] LABS: Prothrombin Time 11.9 SEC (10.0-13.1)
[2022-11-07 13:59] LABS: Alanine Aminotransferase 46 U/L (0-40); Albumin Level 3.9 g/dL (3.5-5.0); Alkaline Phosphatase 141 U/L (39-117); Anion Gap 12 (12-20); Aspartate Amino Transferase 44 U/L (5-37); Bilirubin Total 0.9 mg/dL (0.0-1.0); Blood Urea Nitrogen 8 mg/dL (9-16); Calcium 10.1 mg/dL (8.4-10.2); Carbon Dioxide 29 mmol/L (22-29); Chloride 103 mmol/L (96-108); Estimated Glomerular Filt Rate > 60; Glucose Random 104 mg/dL (60-115); Iron 87 mcg/dL (45-160); Percent Iron Saturation 35 % (15-50); Potassium 3.7 mmol/L (3.3-5.1); Sodium 140 mmol/L (135-145); Total Iron Binding Capacity 246 mcg/dL (228-428); Total Protein 7.9 g/dL (6.5-8.0); Unsaturated Iron Binding 159 ug/dL
[2022-11-07 14:15] LABS: Ferritin 357 ng/mL (20-250)
[2022-11-08 04:49] LABS: HIV AB/AG Nonreactive (Nonreactive); HIV Num 1 0.07 S/CO (0.00-0.99)
[2022-11-15 11:48] LABS: Phosphatidylethanol 16:0-18:1 120 ng/mL
== END 2022-11-07 11:31 | disposition home or self-care (01) ==
LOC: HO.LAB 11:30
PROVIDERS: PCP Internal Medicine; Visit Provider Internal Medicine
DX: Z11.4 Encounter for screening for human immunodeficiency virus [HIV] (principal); K70.10 Alcoholic hepatitis without ascites; F10.90 Alcohol use, unspecified, uncomplicated; R18.8 Other ascites
CPT/HCPCS: 36415; 80053; 80321; 82728; 83540; 85027; 85610; 87389; 99202

== ENCOUNTER 2022-12-26 09:24 | Outpatient (REF) | payer OTHER, SELFPAY ==
--- NOTE | ~2022-12-26 | US_ITS ---
EXAMINATION: US ABDOMEN LIMITED CLINICAL INFORMATION: Ascites. Alcoholic hepatitis. COMPARISON: Limited abdominal ultrasound 10/10/2022. TECHNIQUE: Real-time imaging of the right upper quadrant abdominal viscera. FINDINGS: PANCREAS: Normal LIVER: The liver is enlarged, right lobe measuring 19 cm in length. Liver echotexture is increased. Liver contour is normal. No focal hepatic lesion. There is no intrahepatic biliary duct dilatation seen. GALLBLADDER: Normal. The gallbladder is physiologically distended without evidence of stones, sludge, polyps, wall thickening or pericholecystic fluid. COMMON BILE DUCT: Normal in caliber measuring 0.5 cm in diameter. RIGHT KIDNEY: Normal. No hydronephrosis. No renal calculi or focal parenchymal lesions. The kidney measures 12.1 cm in maximum dimension. FREE FLUID: None. US/US abdomen limited IMPRESSION: Slightly enlarged echogenic liver. No ascites.
== END 2022-12-26 09:25 | disposition home or self-care (01) ==
LOC: HO.US 09:24
PROVIDERS: PCP Internal Medicine; Visit Provider Internal Medicine
DX: R18.8 Other ascites (principal); K70.10 Alcoholic hepatitis without ascites
CPT/HCPCS: 76705

== ENCOUNTER 2023-02-06 11:02 | Outpatient (REF) | payer OTHER, SELFPAY ==
[2023-02-06 12:44] LABS: Alanine Aminotransferase 27 U/L (0-40); Albumin Level 4.4 g/dL (3.5-5.0); Alkaline Phosphatase 83 U/L (39-117); Anion Gap 14 (12-20); Aspartate Amino Transferase 25 U/L (5-37); Bilirubin Direct 0.3 mg/dL (0.0-0.5); Bilirubin Total 0.8 mg/dL (0.0-1.0); Blood Urea Nitrogen 9 mg/dL (9-16); Calcium 10.1 mg/dL (8.4-10.2); Carbon Dioxide 25 mmol/L (22-29); Chloride 106 mmol/L (96-108); Estimated Glomerular Filt Rate > 60; Glucose Random 111 mg/dL (60-115); Potassium 4.1 mmol/L (3.3-5.1); Sodium 141 mmol/L (135-145); Total Protein 7.9 g/dL (6.5-8.0)
== END 2023-02-06 11:03 | disposition home or self-care (01) ==
LOC: HO.LAB 11:02
PROVIDERS: PCP Internal Medicine; Visit Provider Internal Medicine
DX: K70.10 Alcoholic hepatitis without ascites (principal); F10.90 Alcohol use, unspecified, uncomplicated
CPT/HCPCS: 36415; 80053; 82248; 85610; 99212

== ENCOUNTER 2023-02-06 11:02 | Outpatient (AMB) | payer OTHER, SELFPAY ==
--- NOTE | 2023-02-06 11:07 | MHC.OFFVIS ---
Intake Vital Signs 02/06/23 11:08 Height 5 ft 9 in Weight 147 lb 11.355 oz BMI 21.8 BP 118/76 Blood Pressure Location Lt brachial Position Sitting Pulse 67 Intake Visit Reasons: 3 month f/u Intake Note: Lance presents in the office as a 3 month follow up. CC: He is not having any GI concerns today. Perfusionist Required: No Allergies No Known Allergies Allergy (Verified 02/06/23 11:09) HPI HPI Comments History of Present Illness Details 42 y.o M with PMH of etOH use disorder who was recently admitted to the hospital for alc hepatitis and ascites who is here for follow up. 11/07/22: Pt reports longstanding hx of etOH consumption but got worse in the past 2-3 years was doing up to 10 shots a day. Has cut down considerably since hospitalisation, has had 3 drinks in the last one month. During the hospitalisation he did have ascites s/p para 2L without SBP, SAAG and total protein not available. MDF was favorable and therefore steroids were not indicated. Since discharge, he has not had recurrence of abd distention, energy levels are good. Does report subjective sensation of early satiety and bloating but has not been losing weight. 02/06/23: Reports mild relapse i.e consumes 2-4 drinks per week still. Also continues to smoke 0.5PPD. Otherwise, no abd pain, distention, rashes, shortness of breath or fatigue. US results from Dec reviewed and reassuring. [facility] Medical History Cigarette smoker Anxiety Hypertension Alcohol use disorder Family History Father COPD (chronic obstructive pulmonary disease) Maternal Grandmother [place] (myocardial infarction) Social History Household Members: Family Housing: House Do you presently have visiting nurse or other home services: No Alcohol intake: current Alcohol intake frequency: 3 or more drinks per day Alcohol type: hard liquor Patient Tobacco Use Status: Current everyday Tobacco user Tobacco use type: Cigarette Cigarette Packs Per Day: 0.5 Substance Use Type: Marijuana service: No Current occupational status: employed Review of Systems Const All systems reviewed & are unremarkable except as noted in HPI and below Physical Exam Vital Signs: Last Vital Signs Pulse 67 02/06/23 11:08 BP 118/76 02/06/23 11:08 BMI result Body Mass Index 21.8 Gen appear: NAD HEENT: nonicteric, no cervical lymphadenopathy Chest: CTA CVS: Regular S1/S2 Abd: soft, nontender, nondistended, bowel sounds + Ext: no peripheral edema Neuro: A/Ox3, noted to move all extremities spontaneously Psych: interacting appropriately Assessment & Plan Assessment & Plan (1) Alcohol use disorder: Code(s): F10.90 - Alcohol use, unspecified, uncomplicated (2) Acute alcoholic hepatitis: Code(s): K70.10 - Alcoholic hepatitis without ascites (3) Ascites: Code(s): R18.8 - Other ascites Plan Clinically appears to have had complete resolution of alc hep and ascites. Reviewed with the pt again that recommendation would be for ZERO alcohol consumption. Pt reports that he is working on it and truly not drinking close to what he used to before. Also trying to quit smoking and has cut down to half a pack a day. Discussed referral to addiction medicine which the pt declines at this time but will reach out to us if his own efforts plateau. Recommendations: - Repeat MELD labs today - Not immune to HAV or HBV and twinrix Rxed to pharmacy - Repeat US in 6m from prior i.e in Jun 2023. Follow up in 5-6 months Orders: Orders Prothrombin Time INR Today F10.90 - Alcohol use, unspecified, uncomplicated, K70.10 - Alcoholic hepatitis without ascites Liver Panel Today F10.90 - Alcohol use, unspecified, uncomplicated, K70.10 - Alcoholic hepatitis without ascites Comprehensive Met. Panel Today F10.90 - Alcohol use, unspecified, uncomplicated, K70.10 - Alcoholic hepatitis without ascites Medications: New hepatitis A and B vaccine (PF) 720 LAURI unit- 20 mcg/mL (Twinrix (PF)) 1 mL IM ONCE 1 mL 2RF Coding Level of Care Code Est Pt Level 4 (14435) Diagnoses Alcohol use disorder F10.90 Acute alcoholic hepatitis K70.10 Ascites R18.8
[2023-02-06 11:08] VITALS: BP 118/76; PULSE 67; BMI 21.8
== END 2023-02-06 11:34 | disposition home or self-care (01) ==
PROVIDERS: PCP Internal Medicine; Visit Provider Internal Medicine
DX: F10.90 Alcohol use, unspecified, uncomplicated (principal); K70.10 Alcoholic hepatitis without ascites; R18.8 Other ascites
CPT/HCPCS: 99214

== ENCOUNTER 2023-09-10 11:24 | Outpatient (REF) | payer OTHER, SELFPAY ==
[2023-09-10 12:43] LABS: INTERNATIONAL NORM RATIO 0.9 (0.9-1.1); Prothrombin Time 10.9 SEC (11.1-13.3)
[2023-09-10 12:52] LABS: Alanine Aminotransferase 26 U/L (0-40); Albumin Level 4.6 g/dL (3.5-5.0); Alkaline Phosphatase 96 U/L (39-117); Amylase 99 U/L (28-100); Anion Gap 10 (12-20); Aspartate Amino Transferase 36 U/L (5-37); Blood Urea Nitrogen 6 mg/dL (9-16); Calcium 9.8 mg/dL (8.4-10.2); Carbon Dioxide 32 mmol/L (22-29); Chloride 102 mmol/L (96-108); Estimated Glomerular Filt Rate > 60; Glucose Random 110 mg/dL (60-115); Lipase 129 U/L (8-78); Potassium 3.2 mmol/L (3.3-5.1); Sodium 141 mmol/L (135-145); Total Protein 7.8 g/dL (6.5-8.0)
[2023-09-10 13:47] LABS: Hematocrit 42.9 % (42.0-52.0); Hemoglobin 15.9 g/dl (14.0-18.0); Mean Corpuscular HGB Conc 37.1 g/dl (31.0-36.0); Mean Corpuscular Hemoglobin 35.2 pg (27.0-33.0); Mean Corpuscular Volume 94.9 fL (80.0-98.0); Mean Platelet Volume 11.6 fL (9.4-12.4); Platelet Count 205 X10*3/uL (160-400); Red Blood Count 4.52 X10*6/uL (4.60-5.80); Red Cell Distribution Width 14.6 % (11.0-16.0); White Blood Count 12.6 X10*3/uL (4.8-10.8)
[2023-09-17 08:27] LABS: Phosphatidylethanol 16:0-18:1 >400; Phosphatidylethanol 16:0-18:2 >400
== END 2023-09-10 11:25 | disposition home or self-care (01) ==
LOC: HO.LAB 11:24
PROVIDERS: PCP Internal Medicine; Visit Provider Internal Medicine
DX: K70.10 Alcoholic hepatitis without ascites (principal); F10.90 Alcohol use, unspecified, uncomplicated; Q45.3 Other congenital malformations of pancreas and pancreatic duct
CPT/HCPCS: 36415; 80053; 80321; 82150; 83690; 85027; 85610

== ENCOUNTER 2023-09-10 11:24 | Outpatient (AMB) | payer OTHER, SELFPAY ==
--- NOTE | 2023-09-10 11:26 | A.OFFVIS_ITS ---
Vital Signs 09/10/23 11:33 Height 5 ft 9 in Weight 144 lb BMI 21.3 BP 151/89 H Blood Pressure Location Lt brachial Position Sitting Pulse 76 Intake Visit Reasons: Cirrhosis Intake Note: Patient is seen in office for follow up visit, following on cirrhosis. Pt c/o: admits for the last few months, mid to upper back pain, chest pain, upper stomach pain, nausea, vomit randomly, lack of appetite and weight loss, had a body scan couple of weeks ago, was told pancreas is swollen Script Writer Required: No Accompanied by: Self / Same As Patient Allergies No Known Allergies Allergy (Verified 09/10/23 11:30) HPI Comments Details: 42 y.o M with PMH of etOH use disorder who was recently admitted to the hospital for alc hepatitis and ascites who is here for follow up. 11/07/22: Pt reports longstanding hx of etOH consumption but got worse in the past 2-3 years was doing up to 10 shots a day. Has cut down considerably since hospitalisation, has had 3 drinks in the last one month. During the hospitalisation he did have ascites s/p para 2L without SBP, SAAG and total protein not available. MDF was favorable and therefore steroids were not indicated. Since discharge, he has not had recurrence of abd distention, energy levels are good. Does report subjective sensation of early satiety and bloating but has not been losing weight. 02/06/23: Reports mild relapse i.e consumes 2-4 drinks per week still. Also continues to smoke 0.5PPD. Otherwise, no abd pain, distention, rashes, shortness of breath or fatigue. US results from Dec reviewed and reassuring. 09/10/23: Here for 6 month follow up. Reports developed upper abd pain radiating to back a few months assoc with loss of appetite. When he does eat the pain gets worse. PCP Dr Rockwell ordered a CT scan and per his report pancreas appeared affected. Relapsed on etOH for this reason as well as was using it to dull the pain since mid May. Got started on naltrexone but not able to tolerate it due to adverse reactions. Was drinking 3 drinks of vodka before and cut it down to 1 a day. Does not think Naltrexone helped but definitely seeing his PCP did. [facility] Medical History Cigarette smoker Anxiety Hypertension Alcohol use disorder Family History Father COPD (chronic obstructive pulmonary disease) Maternal Grandmother [place] (myocardial infarction) Social History Household Members: Family Housing: House Do you presently have visiting nurse or other home services: No Alcohol intake: current Alcohol intake frequency: 3 or more drinks per day Alcohol type: hard liquor Patient Tobacco Use Status: Current everyday Tobacco user Tobacco use type: Cigarette Cigarette Packs Per Day: 0.5 Substance Use Type: Marijuana service: No Current occupational status: employed Physical Exam Vital Signs: Last Vital Signs Pulse 76 09/10/23 11:33 BP 151/89 H 09/10/23 11:33 BMI result Body Mass Index 21.3 NAD Nonicteric Abd soft, nontender Assessment & Plan Assessment & Plan (1) Alcohol use disorder: Code(s): F10.90 - Alcohol use, unspecified, uncomplicated Category: Medical (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 Addiction med referral discussed and pt amenable to seeing them. Will get repeat MELD and PETH labs. Pt did not get twinrix vaccines, reordered. in terms of pancreatic abnormality noted on OSH scan, will get records. Release form signed by the pt today. Clinically, appears to have had AIP based on his description of events. Will check pancreatic enzymes. Follow up 4 months Orders: Orders Lipase 09/10/23 K70.10 - Alcoholic hepatitis without ascites Amylase 09/10/23 K70.10 - Alcoholic hepatitis without ascites Comprehensive Met. Panel 09/10/23 K70.10 - Alcoholic hepatitis without ascites Complete Blood Count no Diff 09/10/23 K70.10 - Alcoholic hepatitis without ascites Phosphatidylethanol, Blood 09/10/23 K70.10 - Alcoholic hepatitis without ascites Prothrombin Time INR 09/10/23 K70.10 - Alcoholic hepatitis without ascites Referrals Addiction Medicine Referral F10.90 - Alcohol use, unspecified, uncomplicated Medications: Refilled hepatitis A and B vaccine (PF) 720 LAURI unit- 20 mcg/mL (Twinrix (PF)) 1 mL IM ONCE 1 mL 2RF Coding Level of Care Code Est Pt Level 4 (00236) Diagnoses Alcohol use disorder F10.90 Pancreatic abnormality Q45.3
[2023-09-10 11:33] VITALS: BP 151/89; PULSE 76; BMI 21.3
== END 2023-09-10 11:59 | disposition home or self-care (01) ==
LOC: HO.HGI 11:24
PROVIDERS: PCP Internal Medicine; Visit Provider Internal Medicine
DX: F10.90 Alcohol use, unspecified, uncomplicated (principal); Q45.3 Other congenital malformations of pancreas and pancreatic duct
CPT/HCPCS: 99214

== ENCOUNTER 2023-09-11 15:28 | Outpatient (AMB) | payer OTHER, SELFPAY ==
[2023-09-11 16:31] VITALS: BP 120/60; PULSE 115; O2SAT 98
--- NOTE | 2023-09-11 16:31 | A.OFFVISCC_ITS ---
Vital Signs 09/11/23 16:31 BP 120/60 Position Sitting Pulse 115 H Pulse Source Pulse Oximeter Pulse Oximetry (%) 98 Intake Visit Reasons: Intake Allergies No Known Allergies Allergy (Verified 09/10/23 11:30) HPI HPI Intake: Details: Patient presents to critical access hospital care Referred by Dr. Salcido PCP is Dr. Otoniel Rockwell - seen last week Has a full time babysitter job working in sales Lives with his brother and rents second floor of his house out to his mother Feels as though his mother and his brother offer him a good support system Currently drinking 3-7 shots of vodka daily He started drinking at 17-18 yrs of age socially STarted every day alcohol use daily approx 10 yrs ago Last year he was drinking approx 10 shots daily, he was admitted to hospital and was detoxed with phenobarb He reports he was able to stay sober for months but started drinking again after experiencing frequent pain to upper back radiating to chest and stomach He describes this pain as tight and a deeper pain that is only relieved by alcohol per his report Past hx: suboxone x 2 yrs 3-4 years ago (stopped taking when his clinic suddenly closed), current daily marijuana use, cigarettes 1/2 PPD x 20+ years (he intends to quit smoking after alcohol cessation) 2015- driving impaired program No psych history No providers Takes atenolol for HTN NKA His tx goal is to stop using alcohol PFSH Medical History Cigarette smoker Anxiety Hypertension Alcohol use disorder Family History Father COPD (chronic obstructive pulmonary disease) Maternal Grandmother [place] (myocardial infarction) Social History Household Members: Family Housing: House Do you presently have visiting nurse or other home services: No Alcohol intake: current Alcohol intake frequency: 3 or more drinks per day Alcohol type: hard liquor Patient Tobacco Use Status: Current everyday Tobacco user Tobacco use type: Cigarette Cigarette Packs Per Day: 0.5 Substance Use Type: Marijuana service: No Current occupational status: employed Review [employer] Reports as per HPI Physical Exam Vital Signs: Last Vital Signs Pulse 115 H 09/11/23 16:31 BP 120/60 09/11/23 16:31 Pulse Ox 98 09/11/23 16:31 Const General: cooperative and no acute distress Resp Effort & Inspection: normal respiratory effort Psych Appearance: grossly normal Mental Status: mental status grossly normal Speech and movement: Normal speech and movement present Affect: normal affect Attitude: cooperative Results AMB 14 Panel Urine Drug Screen Urine Marijuana (THC) Positive Last Edit by Nakia France NP on 09/11/23 17:04 Urine Cocaine Negative Last Edit by Nakia France NP on 09/11/23 17:04 Urine Morphine Negative Last Edit by Nakia France NP on 09/11/23 17:04 Urine Methamphetamine Negative Last Edit by Nakia France NP on 09/11/23 17:04 Urine Amphetamine Negative Last Edit by Nakia France NP on 09/11/23 17:0 4 Urine Benzodiazepine Negative Last Edit by Nakia France NP on 09/11/23 17:04 Urine Barbiturates Negative Last Edit by Nakia France NP on 09/11/23 17: 04 Urine Methadone Negative Last Edit by Nakia France NP on 09/11/23 17:04 Urine Buprenorphine Negative Last Edit by Nakia France NP on 09/11/23 17 :04 Urine Tricyclic Antidepressant Negative Last Edit by Nakia France NP on 09/11/23 17:04 Urine MDMA Negative Last Edit by Nakia France NP on 09/11/23 17:04 Urine Oxycodone Negative Last Edit by Nakia France NP on 09/11/23 17:04 Urine Phencyclidine Negative Last Edit by Nakia France NP on 09/11/23 17 :04 Urine Propoxyphene Negative Last Edit by Nakia France NP on 09/11/23 17: 04 Results Reviewed Results Reviewed: Laboratory Last Values POC Urine Buprenorphine Negative 09/11/23 17:00 POC Urine Morphine Negative 09/11/23 17:00 POC Urine Oxycodone Negative 09/11/23 17:00 POC Urine Methadone Negative 09/11/23 17:00 POC Urine Propoxyphene Negative 09/11/23 17:00 POC Urine Barbiturates Negative 09/11/23 17:00 POC U Tricyclic Antidpr Negative 09/11/23 17:00 POC Urine PCP Negative 09/11/23 17:00 POC Ur Amphetamines Negative 09/11/23 17:00 POC Ur Methamphetamine Negative 09/11/23 17:00 POC Urine MDMA Negative 09/11/23 17:00 POC Ur Benzodiazepine Negative 09/11/23 17:00 POC Urine Cocaine Negative 09/11/23 17:00 POC Ur Marijuana (THC) Positive 09/11/23 17:00 Assessment & Plan Assessment & Plan (1) Alcohol use disorder: Code(s): F10.90 - Alcohol use, unspecified, uncomplicated Category: Medical Plan: -Reviewed with patient the dangers of abruptly stopping alcohol use, reviewed signs and symptoms of withdrawal -Start nalrexone, med education provided -Ondansetron sent to pharmacy to address intermittent nausea -Reviewed importance of thiamine and folic acid- sent both to pharmacy -Discussed taper schedule to begin decreasing alcohol use, discussed with him measuing his alcohol intake -Follow up 1 week Orders: Orders AMB 14 Panel Urine Drug Screen 09/11/23 F10.90 - Alcohol use, unspecified, uncomplicated Medications: New ondansetron 4 mg PO Q8H PRN 30 tabs 0RF nausea and vomiting gabapentin 100 mg PO TID 21 caps 0RF thiamine HCl (vitamin B1) 100 mg (2 x 50 mg) PO DAILY 30 tabs 0RF folic acid 1 mg PO DAILY 30 tabs 0RF
== END 2023-09-11 16:32 | disposition home or self-care (01) ==
PROVIDERS: PCP Internal Medicine; Visit Provider Nurse Practitioner Family
DX: F10.90 Alcohol use, unspecified, uncomplicated (principal)
CPT/HCPCS: 99204

== ENCOUNTER → 2023-09-11 15:28 | Outpatient (BNVA) | payer OTHER, SELFPAY | PROVIDERS: PCP Internal Medicine; Visit Provider Nurse Practitioner Family | DX: F10.90 Alcohol use, unspecified, uncomplicated (principal) | CPT/HCPCS: 80305 ==

== ENCOUNTER 2023-09-18 11:01 | Outpatient (AMB) | payer OTHER, SELFPAY ==
[2023-09-18 11:00] VITALS: BP 148/88; PULSE 96; O2SAT 98
--- NOTE | 2023-09-18 11:00 | A.OFFVISCC_ITS ---
Vital Signs 09/18/23 11:00 BP 148/88 H Blood Pressure Location Lt brachial Position Sitting Pulse 96 Pulse Source Pulse Oximeter Pulse Oximetry (%) 98 Oxygen Delivery Method Room Air Intake Visit Reasons: MAT Allergies No Known Allergies Allergy (Verified 09/18/23 11:00) HPI HPI MAT: Details: Patient presents for AUD treatment and follow up States his alcohol use has varied over the past week- he has only been taking shots to assist with his abd pain, he feels as though taking a shot eases his nausea. He has found the zofran to be somewhat helpful. Has been taking protonix 40mg once and sometimes twice daily with some relief He is having an MRI done this afternoon States he has been trying to drink more fluids, was told to try to drink gatorade to replenish electrolytes. He tried to take the naltrexone 50mg tabs split in half but found it made him too nauseated for him to continue HPI Comments Details: Patient presents for MAT visit [facility] Medical History Cigarette smoker Anxiety Hypertension Alcohol use disorder Family History Father COPD (chronic obstructive pulmonary disease) Maternal Grandmother [place] (myocardial infarction) Social History Household Members: Family Housing: House Do you presently have visiting nurse or other home services: No Alcohol intake: current Alcohol intake frequency: 3 or more drinks per day Alcohol type: hard liquor Patient Tobacco Use Status: Current everyday Tobacco user Tobacco use type: Cigarette Cigarette Packs Per Day: 0.5 Substance Use Type: Marijuana service: No Current occupational status: employed [employer] Reports as per HPI Physical Exam Vital Signs: Last Vital Signs Pulse 96 09/18/23 11:00 BP 148/88 H 09/18/23 11:00 Pulse Ox 98 09/18/23 11:00 Oxygen Delivery Method Room Air 09/18/23 11:00 Const General: cooperative and no acute distress Resp Effort & Inspection: normal respiratory effort and able to speak in complete sentences Psych Appearance: grossly normal Mental Status: mental status grossly normal Speech and movement: Normal speech and movement present Affect: normal affect Attitude: cooperative Thought process: Normal thought process present Assessment & Plan Assessment & Plan (1) Alcohol use disorder: Code(s): F10.90 - Alcohol use, unspecified, uncomplicated Category: Medical Plan: -Discussed with patient trialing sucralfate and famotidine to see if he achieves better reflux/nausea control. Reviewed with him to resume his protonix as originally ordered if he finds there is no difference after starting the sucralfate and famotidine. -Reviewed harm reduction techniques with him -He is to follow up in 3 weeks after his MRI is resulted and GI has discussed it with him -Reviewed with him to continue to try and cut down on his alcohol intake as he can tolerate Medications: New sucralfate 1 g PO BID 30 tabs 0RF famotidine 40 mg PO DAILY 30 tabs 0RF
== END 2023-09-18 11:21 | disposition home or self-care (01) ==
PROVIDERS: PCP Internal Medicine; Visit Provider Nurse Practitioner Family
DX: F10.90 Alcohol use, unspecified, uncomplicated (principal)
CPT/HCPCS: 99213

== ENCOUNTER → 2023-09-18 11:01 | Outpatient (BNVA) | payer OTHER, SELFPAY | PROVIDERS: PCP Internal Medicine; Visit Provider Nurse Practitioner Family ==

== ENCOUNTER 2023-10-16 14:22 | Outpatient (AMB) | payer OTHER, SELFPAY ==
[2023-10-16 14:24] VITALS: BP 132/86; PULSE 110; O2SAT 98
--- NOTE | 2023-10-16 14:24 | MHC.AM.SUB ---
Vital Signs 10/16/23 14:24 BP 132/86 Blood Pressure Location Rt brachial Position Sitting Pulse 110 H Pulse Source Pulse Oximeter Pulse Oximetry (%) 98 Oxygen Delivery Method Room Air Intake Visit Reasons: MAT Allergies No Known Allergies Allergy (Verified 09/18/23 11:00) HPI HPI MAT: Details: Patient presents for AUD treatment and follow up States he was physically ill all last week from -Sun with nausea and vomiting. Was unable to tolerate anything PO on Sunday, had no ETOH Sunday-, states he woke this morning feeling diaphoretic and nauseated and took a shot because he was worried he was in withdrawal, reports symptoms subsided after taking a shot. Reports on Sunday he noted sudeep red blood to his stool, denies having any blood in stool since, denies tarry black stools or coffee ground emesis. [facility] Medical History Cigarette smoker Anxiety Hypertension Alcohol use disorder Family History Father COPD (chronic obstructive pulmonary disease) Maternal Grandmother [place] (myocardial infarction) Social History Household Members: Family Housing: House Do you presently have visiting nurse or other home services: No Alcohol intake: current Alcohol intake frequency: 3 or more drinks per day Alcohol type: hard liquor Patient Tobacco Use Status: Current everyday Tobacco user Tobacco use type: Cigarette Cigarette Packs Per Day: 0.5 Substance Use Type: Marijuana service: No Current occupational status: employed [employer] Reports as per HPI GI Denies melena, Denies coffee ground emesis and Denies hematemesis Physical Exam Vital Signs: Last Vital Signs Pulse 110 H 10/16/23 14:24 BP 132/86 10/16/23 14:24 Pulse Ox 98 10/16/23 14:24 Oxygen Delivery Method Room Air 10/16/23 14:24 Const General: cooperative and no acute distress; No diaphoretic Resp Effort & Inspection: normal respiratory effort and able to speak in complete sentences Psych Appearance: grossly normal Mental Status: mental status grossly normal Speech and movement: Normal speech and movement present Affect: normal affect Attitude: cooperative Assessment & Plan Assessment & Plan (1) Alcohol use disorder: Code(s): F10.90 - Alcohol use, unspecified, uncomplicated Category: Medical Plan: -Reinforced risks of decreasing alcohol use too quickly -Educated patient on signs and symptoms of GI bleed (tarry stool, coffee ground emesis), and to present to ED/seek higher level of care immediately should he begin to experience these symptoms -Educated patient to try and cut down 1 shot per week as tolerated, reviewed harm reduction for alcohol use (drink on full stomach, hydrate between drinks) -Follow up 2 weeks Medications: Refilled gabapentin 100 mg PO TID 90 caps 0RF
== END 2023-10-16 14:50 | disposition home or self-care (01) ==
PROVIDERS: PCP Internal Medicine; Visit Provider Nurse Practitioner Family
DX: F10.90 Alcohol use, unspecified, uncomplicated (principal)
CPT/HCPCS: 99213

== ENCOUNTER → 2023-10-16 14:22 | Outpatient (BNVA) | payer OTHER, SELFPAY | PROVIDERS: PCP Internal Medicine; Visit Provider Nurse Practitioner Family ==

== ENCOUNTER 2023-10-30 09:54 | Outpatient (AMB) | payer OTHER, SELFPAY ==
[2023-10-30 10:16] VITALS: BP 140/94; PULSE 88; RESP 16; O2SAT 96
--- NOTE | 2023-10-30 10:16 | MHC.AM.SUB ---
Vital Signs 10/30/23 10:16 BP 140/94 H Blood Pressure Location Lt brachial Respiration 16 Pulse 88 Pulse Source Pulse Oximeter Pulse Oximetry (%) 96 Oxygen Delivery Method Room Air Intake Visit Reasons: MAT Allergies No Known Allergies Allergy (Verified 09/18/23 11:00) HPI HPI MAT: Details: Patient presents for AUD treatment and follow up Reports last two weeks has has started to physically feel better, reports les abd pain, nausea. States his appetite has improved, energy has improved, and he has gained 5 lbs. Etoh use varies from 2-3 shots per day to 5 shots per day Reports on the days he has 5 shots it is to not feel like crap , he feels as though he takes the extra shots on days he begins to feel mild withdrawal symptoms Being followed by GI, reports they requested him to get another CT done HPI Comments Details: Patient presents for MAT visit [facility] Medical History Cigarette smoker Anxiety Hypertension Alcohol use disorder Family History Father COPD (chronic obstructive pulmonary disease) Maternal Grandmother [place] (myocardial infarction) Social History Household Members: Family Housing: House Do you presently have visiting nurse or other home services: No Alcohol intake: current Alcohol intake frequency: 3 or more drinks per day Alcohol type: hard liquor Patient Tobacco Use Status: Current everyday Tobacco user Tobacco use type: Cigarette Cigarette Packs Per Day: 0.5 Substance Use Type: Marijuana service: No Current occupational status: employed [employer] Reports as per HPI Physical Exam Vital Signs: Last Vital Signs Pulse 88 10/30/23 10:16 Resp 16 10/30/23 10:16 BP 140/94 H 10/30/23 10:16 Pulse Ox 96 10/30/23 10:16 Oxygen Delivery Method Room Air 10/30/23 10:16 Const General: cooperative and no acute distress Resp Effort & Inspection: normal respiratory effort and able to speak in complete sentences Psych Appearance: grossly normal Mental Status: mental status grossly normal Speech and movement: Normal speech and movement present Affect: normal affect Attitude: cooperative Thought process: Normal thought process present Assessment & Plan Assessment & Plan (1) Alcohol use disorder: Code(s): F10.90 - Alcohol use, unspecified, uncomplicated Category: Medical Plan: -Encouraged him to maintain for a week drinking approx 4 shots, and once he is drinking the same amount daily, he can begin to slowly decrease -Harm reduction discussed -Refilled carafate for 3 months supply -Follow up 1 month Medications: Refilled sucralfate 1 g PO BID 90 tabs 0RF
== END 2023-10-30 10:24 | disposition home or self-care (01) ==
PROVIDERS: PCP Internal Medicine; Visit Provider Nurse Practitioner Family
DX: F10.90 Alcohol use, unspecified, uncomplicated (principal)
CPT/HCPCS: 99213

== ENCOUNTER → 2023-10-30 09:54 | Outpatient (BNVA) | payer OTHER, SELFPAY | PROVIDERS: PCP Internal Medicine; Visit Provider Nurse Practitioner Family ==

== ENCOUNTER 2023-12-18 10:56 | Outpatient (AMB) | payer OTHER, SELFPAY ==
[2023-12-18 11:08] VITALS: BP 118/84; PULSE 83; RESP 16; O2SAT 98
--- NOTE | 2023-12-18 11:08 | MHC.AM.SUB ---
Vital Signs 12/18/23 11:08 BP 118/84 Blood Pressure Location Lt brachial Position Sitting Respiration 16 Pulse 83 Pulse Source Pulse Oximeter Pulse Oximetry (%) 98 Oxygen Delivery Method Room Air Intake Visit Reasons: MAT Allergies No Known Allergies Allergy (Verified 09/18/23 11:00) HPI HPI MAT: Details: Patient presents for AUD treatment follow up Last seen 6 weeks ago goal is to stop drinking daily drinking 4-10 nips daily spacing out throughout the day 3 is the lowest attended AA meetings over the last month --did not feel beneficial No history of etoh withdrawal seizure [address] Salcido next month Discussed at home withdrawal management Patient interested in this, would have to get time off of work [facility] Medical History Cigarette smoker Anxiety Hypertension Alcohol use disorder Family History Father COPD (chronic obstructive pulmonary disease) Maternal Grandmother [place] (myocardial infarction) Social History Household Members: Family Housing: House Do you presently have visiting nurse or other home services: No Alcohol intake: current Alcohol intake frequency: 3 or more drinks per day Alcohol type: hard liquor Patient Tobacco Use Status: Current everyday Tobacco user Tobacco use type: Cigarette Cigarette Packs Per Day: 0.5 Substance Use Type: Marijuana service: No Current occupational status: employed [employer] Reports as per HPI Physical Exam Vital Signs: Last Vital Signs Pulse 83 12/18/23 11:08 Resp 16 12/18/23 11:08 BP 118/84 12/18/23 11:08 Pulse Ox 98 12/18/23 11:08 Oxygen Delivery Method Room Air 12/18/23 11:08 Const General: cooperative and no acute distress Psych Appearance: grossly normal Mental Status: mental status grossly normal Speech and movement: Normal speech and movement present Affect: normal affect Attitude: cooperative Thought process: Normal thought process present Assessment & Plan Assessment & Plan (1) Alcohol use disorder: Code(s): F10.90 - Alcohol use, unspecified, uncomplicated Category: Medical Plan: continue naltrexone follow up 4 weeks risk reduction discussion
== END 2023-12-18 11:38 | disposition home or self-care (01) ==
PROVIDERS: PCP Internal Medicine; Visit Provider Nurse Practitioner Psychiatric/Mental Health
DX: F10.90 Alcohol use, unspecified, uncomplicated (principal)
CPT/HCPCS: 99214

== ENCOUNTER → 2023-12-18 10:56 | Outpatient (BNVA) | payer OTHER, SELFPAY | PROVIDERS: PCP Internal Medicine; Visit Provider Nurse Practitioner Psychiatric/Mental Health ==

== ENCOUNTER 2023-12-26 14:26 | Inpatient (IN) | payer OTHER, SELFPAY ==
--- NOTE | ~2023-12-26 | XR_ITS ---
EXAMINATION: XR CHEST CLINICAL INFORMATION: Chest pain. Difficulty keeping food down COMPARISON: None available. TECHNIQUE: Frontal view of the chest was obtained. FINDINGS: Lungs clear. Heart and pulmonary vessels normal. XR/XR chest 1V IMPRESSION: No active disease.
--- NOTE | ~2023-12-26 | MR_ITS ---
EXAMINATION: MR ABDOMEN WITHOUT CONTRAST CLINICAL INFORMATION: CBD stone COMPARISON: 12/26/2023 CT abdomen pelvis TECHNIQUE: MRI of the abdomen was obtained using routine sequences. Heavily T2 weighted MRCP sequences were also obtained. FINDINGS: LUNG BASES: The visualized lung bases are unremarkable. KIDNEYS AND URETERS: Unremarkable. GALLBLADDER: Phrygian cap in the gallbladder. No definite cholelithiasis. LIVER AND BILIARY TREE: Question of subtle nodularity of the hepatic contour, recommend correlation with risk factors for cirrhosis. Common bile duct is mildly dilated to 9 mm and tapers narrowly in the region of the pancreatic head to 2 mm likely reflecting mass effect from surrounding inflammatory change. No sudeep intrahepatic biliary duct dilatation. No definite intraluminal filling defect to suggest choledocholithiasis. PANCREAS: Again seen is similar appearance of peripancreatic inflammatory change and free fluid most notably involving the pancreatic head which is markedly edematous. There is heterogeneous loss of the intrinsic T1 bright signal in the pancreatic head with lack of intravenous contrast limiting assessment for pancreatic necrosis however there are 2 ill-defined fluid collections within the pancreatic head measuring 0.9 cm and 0.9 cm adjacent to each other, 4:14 and 15 which may reflect acute necrotic collections. SPLEEN: Unremarkable ADRENAL GLANDS: Unremarkable GASTROINTESTINAL TRACT: Again seen is duodenal wall thickening and periduodenal inflammatory changes favored to be reactive though differential considerations would include duodenitis. LYMPH NODES: No lymphadenopathy. VASCULAR: Unremarkable ABDOMINAL WALL: Unremarkable. OSSEOUS STRUCTURES: Unremarkable. MR/MR MRCP IMPRESSION: 1. Again seen is similar appearance of peripancreatic inflammatory change and free fluid most notably involving the pancreatic head which is markedly edematous. There is heterogeneous loss of the intrinsic T1 bright signal in the pancreatic head with lack of intravenous contrast limiting assessment for pancreatic necrosis however there are 2 ill-defined fluid collections within the pancreatic head measuring 0.9 cm and 0.9 cm adjacent to each other which may reflect acute necrotic collections, raising the suspicion for possible necrotizing pancreatitis. 2. Common bile duct is mildly dilated to 9 mm and tapers narrowly in the region of the pancreatic head to 2 mm likely reflecting mass effect from surrounding inflammatory change. No sudeep intrahepatic biliary duct dilatation. No definite intraluminal filling defect to suggest choledocholithiasis. 3. Again seen is duodenal wall thickening and periduodenal inflammatory changes favored to be reactive though differential considerations would include duodenitis. 4. Question of subtle nodularity of the hepatic contour, recommend correlation with risk factors for cirrhosis.
--- NOTE | ~2023-12-26 | CT_ITS ---
EXAMINATION: CT ABDOMEN AND PELVIS WITH CONTRAST CLINICAL INFORMATION: Nausea and vomiting. Pancreatitis. COMPARISON: None available. TECHNIQUE: Multidetector volumetric images were obtained from the superior aspect of the liver through the pubic symphysis following administration 85 mL of Omnipaque 350 intravenous contrast. Sagittal and coronal reformatted images were obtained on the technologist's workstation. Oral contrast: No This CT examination was performed using dose optimization techniques as appropriate, variously including the following: *Automated exposure control *Adjustment of mA and/or kV according to patient size (this includes techniques or standardized protocols for targeted exams where dose is matched to indication/reason for exam; i.e. extremities or head) *Use of iterative reconstruction technique DLP: 853 mGy-cm FINDINGS: LUNG BASES: The visualized lung bases are unremarkable. LIVER, GALLBLADDER, AND BILIARY TREE: Moderate hepatomegaly without any discrete focal lesion. No biliary ductal dilatation. The gallbladder is notable for some hyperenhancement mucosa which may be secondary. No definite stones seen on CT imaging. PANCREAS: Significant inflammatory changes within the peripancreatic location centered about the pancreatic head and neck extending into the periduodenal region. No gas fluid collection but there is diffuse edema. The pancreatic parenchyma appears to enhance normally without definite pancreatic necrosis. The uncinate process appears intact and there is no definable mass seen. The pancreatic duct appears mildly prominent diffusely without a definite stones. Along the course of a nondilated CBD within the distal intrapancreatic segment, the punctate calculus question. Please see landon images. SPLEEN: Unremarkable. ADRENAL GLANDS: Unremarkable. KIDNEYS AND URETERS: The kidneys are normal in size, shape, and attenuation. No hydronephrosis, hydroureter, or calculi seen. No perinephric stranding. BLADDER: Unremarkable. GASTROINTESTINAL TRACT: The colon is decompressed and difficult to assess. It relative pronounced diverticular noted throughout the sigmoid colon especially. There is small amount of fluid tracking into the left lateral colonic gutter. These are all likely secondary findings. Is no definite intrinsic bowel disease. The supraglottic wall prominence may be due to chronic changes of diverticular disease. ABDOMINAL WALL: No significant hernia is appreciated. LYMPH NODES: Reactive appearing retroperitoneal and portacaval lymph nodes. No pathologic enlargement. VASCULAR: Unremarkable. PELVIC VISCERA: Unremarkable. OSSEOUS STRUCTURES: Unremarkable. CT/CT abdomen pelvis w IV con IMPRESSION: 1. Significant inflammatory changes centered about the pancreatic head and neck favoring acute pancreatitis. No definite pancreatic necrosis. Please correlate with laboratory work up. Possibility of a primary duodenal process is felt to be less likely. 2. Possible punctate calculus within the distal intrapancreatic segment of the CBD which could be minimal choledocholithiasis. Fleischner guidelines were followed.
--- NOTE | 2023-12-26 15:03 | ECG_ITS ---
Test Reason : chest pain Blood Pressure : / mmHG Vent. Rate : 090 BPM Atrial Rate : 090 BPM P-R Int : 120 ms QRS Dur : 076 ms QT Int : 380 ms P-R-T Axes : 058 037 005 degrees QTc Int : 464 ms Sinus rhythm with marked sinus arrhythmia Possible Left atrial enlargement Nonspecific ST and T wave abnormality No previous ECGs available Referred By: Cady Sunshine Electronically Signed By:IVELISSE FAULKNER MD
[2023-12-26 15:16] VITALS: BP 118/68; PULSE 91; RESP 20; TEMP 36.5; O2SAT 98; BMI 21.3
--- NOTE | 2023-12-26 15:16 | ED.ABDPAIN ---
HPI - Abdominal Pain General Chief Complaint: Chest Pain Stated Complaint: CP, cant keep anything down Time Seen by Provider: 12/26/23 15:52 Source: patient and family Mode of arrival: ambulatory Limitations: no limitations History of Present Illness HPI narrative: Patient is a 43-year-old male who presents emergency department for evaluation of diffuse abdominal pain primarily to the upper quadrants and epigastric region with associated nausea and frequent vomiting with bile like emesis an intermittent midsternal chest pain. He denies associated fevers, chills, shortness of breath, genitourinary symptoms, diarrhea, constipation, hematochezia, melena. Denies any known sick contacts. He reports a history of feeling similarly in the past when he has experienced pancreatitis. He states that [facility], he has been decreasing his consumption recently but reports he is drinking approximately 3-5 shots daily. He denies any history of DT/withdrawal seizures. Related Data Home Medications ?Medication ?Instructions ?Recorded ?Confirmed atenolol 50 mg tablet 25 mg PO DAILY 10/10/22 12/26/23 multivitamin 1 tab PO DAILY 10/10/22 12/26/23 acetaminophen 325 mg capsule 325 mg PO QID PRN Pain 09/10/23 12/26/23 (Tylenol) methocarbamol 750 mg tablet 750 mg PO BID 09/10/23 12/26/23 naltrexone 50 mg tablet 50 mg PO DAILY 09/10/23 12/26/23 trazodone 50 mg tablet 100 mg PO BEDTIME PRN Sleep 09/10/23 12/26/23 lorazepam 0.5 mg tablet 0.5 mg PO BID PRN Anxiety 12/26/23 12/26/23 magnesium oxide 400 mg PO DAILY 12/26/23 12/26/23 nicotine 21 mg/24 hr daily 21 mg topical DAILY 12/26/23 12/26/23 transdermal patch omeprazole 20 mg capsule,delayed 20 mg PO DAILY@0630 12/26/23 12/26/23 release potassium chloride 10 mEq 10 meq PO DAILY 12/26/23 12/26/23 tablet,extended release Previous Rx's ?Medication ?Instructions ?Recorded ondansetron 4 mg disintegrating 4 mg PO Q8H PRN nausea and 09/11/23 tablet vomiting #30 tabs gabapentin 100 mg capsule 100 mg PO TID #90 caps 10/16/23 sucralfate 1 gram tablet 1 g PO BID #90 tabs 10/30/23 Allergies Allergy/AdvReac Type Severity Reaction Status Date / Time No Known Allergies Allergy Verified 12/26/23 15:17 Review of Systems Review of Systems Yes all other systems are reviewed and are negative [facility] Past Medical History Attestation statement: The following information was validated with the patient. Source: old records reviewed Medical History Cigarette smoker Anxiety Hypertension Alcohol use disorder Family History Family History Father COPD (chronic obstructive pulmonary disease) Maternal Grandmother [place] (myocardial infarction) Social History Social History Household Members: Family Housing: House Do you presently have visiting nurse or other home services: No Alcohol intake: current Alcohol intake frequency: 3 or more drinks per day Alcohol type: hard liquor Patient Tobacco Use Status: Never used Tobacco Tobacco use type: Cigarette Cigarette Packs Per Day: 0.5 Smoked in Last 30 Days: Yes Use of substances other than those prescribed or required for medical reasons: Yes Substance Use Type: Marijuana Advance Directives: No Advance Directives Information Provided: Yes Nutrition Risks: Acute nausea or vomiting x1 week service: No Current occupational status: employed Physical Exam ED Vital Signs: Vital Signs - 24 hr 12/26/23 15:16 12/26/23 15:44 12/26/23 16:32 Temperature 97.7 F 97.9 F Pulse Rate 91 70 82 Respiratory Rate 20 18 18 Blood Pressure 118/68 184/101 H 141/92 H Pulse Oximetry 98 95 97 Oxygen Delivery Method Room Air Room Air Room Air 12/26/23 18:29 Temperature Pulse Rate 72 Respiratory Rate 14 Blood Pressure 136/78 Pulse Oximetry 96 Oxygen Delivery Method Room Air BMI result Body Mass Index 22.2 Appearance: Alert.?Oriented to person, place and time. No acute distress.?Normal affect. Eyes: Pupils equal, round and reactive to light.? ENT: Pharynx normal.?? Neck: Normal inspection.? Neck supple.?? CVS: Heart sounds normal. Normal heart rate and rhythm.? Pulses normal.?? Respiratory: No respiratory distress.? Lung sounds clear to auscultation bilaterally?? Abdomen: notable upper abdominal tenderness upon palpation, positive Wetzel sign, abdomen is soft without rigidity or guarding. Normoactive bowel sounds. No pulsatile mass.?? Skin: Skin warm and dry.? Normal skin color.?? Extremities: No lower extremity edema.? Neuro: Moves all extremities spontaneously. Sensation intact bilaterally. Ambulates with normal steady gait. Course Course Course Narrative: This is a Rapid Medical Exam performed in triage by Cady Sunshine PA-C. Full HPI, ROS and PE to be performed by primary ED provider. 43 year-old M w/ PMHx presenting to the ED c/o diffuse abdominal pain, N/V & CP. Admits to drinking 3-5 shots daily, last drink 3AM. denies withdrawal sz PE: uncomfortable. Abdomen soft with epigastric/upper tenderness and guarding Plan: EKG, labs, CT AP, CXR Reevaluation(s) Reevaluation #1: CT of the abdomen and pelvis revealing acute pancreatitis, no necrosis, possible punctate calculus within the distal intrapancreatic segment of the CBD which may be minimal choledocholithiasis, though has chronically elevated bilirubin, no biliary dilation is seen. Planning for admission to medicine service, possible MRCP. Starting phenobarb protocol Medical Decision Making Medical Decision Making MDM Narrative: Patient is a 43-year-old male with past medical history of anxiety, hypertension, pancreatitis, alcohol hepatitis, ascites, alcohol use disorder presenting to emergency department for evaluation of upper abdominal pain nausea vomiting and poor appetite as per HPI. Overall he appears uncomfortable however nontoxic. He is afebrile without tachycardia tachypnea, no hypoxia. He has notable upper abdominal tenderness upon palpation, positive Wetzel sign, abdomen is soft without rigidity or guarding. Will obtain CBC to evaluate for leukocytosis/ anemia, CMP and lipase to evaluate for abnormal electrolytes /abnormal renal function/ abnormal hepatic/biliary function, EKG and troponin to evaluate for ischemia/ACS. Chest x-ray to evaluate for consolidation/ infiltrate/ mass/ pulmonary congestion, CT abdomen and pelvis and Urinalysis. Patient will be treated with 1 L normal saline IV fluid, Zofran IV, morphine IV, monitor CIWA. Of note patient was admitted to this hospital in September of 2022 for acute alcohol hepatitis and withdrawal complicated by ascites, was drained negative for SBP, advised outpatient follow-up with Gastroenterology. Differential Diagnosis Differential Diagnoses: The differential diagnosis associated with the presentation includes (Pancreatitis, cholecystitis, gastritis, alcoholic hepatitis) Admission/Observation Consideration of admission/observation: Escalation of care including admission/observation considered Lab Data MDM Lab Attestation statement: I reviewed the patient's lab results. Chemistries reveal mild hypokalemia of 3.2, elevated bilirubin; T bili 1.7 direct bili 0.7 mildly elevated ALT at 42, alk-phos 140 with lipase of 270. Alcohol nondetectable. High sensitive troponin below detectable limits. 12/26/23 15:11 12/26/23 15:11 Labs: Lab Results 12/26/23 12/26/23 Range/Units 15:11 18:28 WBC 15.4 H (4.8-10.8) X10*3/uL RBC 5.14 (4.60-5.80) X10*6/uL Hgb 16.5 (14.0-18.0) g/dl Hct 49.2 (42.0-52.0) % MCV 95.7 (80.0-98.0) fL MCH 32.1 (27.0-33.0) pg MCHC 33.5 (31.0-36.0) g/dl RDW 13.6 (11.0-16.0) % Plt Count 269 D (160-400) X10*3/uL MPV 11.5 (9.4-12.4) fL Immature Gran % (Auto) 0.5 H (0.0-0.4) % Neut % (Auto) 81.7 H (45-73) % Lymph % (Auto) 10.7 L (20-40) % [place] % (Auto) 6.9 (2-11) % Eos % (Auto) 0.0 (0-4) % Baso % (Auto) 0.2 (0-2) % Lymph # (Auto) 1.6 (1.2-4.9) X10*3/uL [place] # (Auto) 1.1 (0.1-1.2) X10*3/uL Eos # (Auto) 0.0 (0.0-0.4) X10*3/uL Baso # (Auto) 0.0 (0.0-0.2) X10*3/uL Abs Immat Gran (auto) 0.08 H (0.00-0.03) X10*3/uL Absolute Neuts (auto) 12.6 H (2.0-8.3) x10*3/uL Absolute Nucleated RBC 0.000 (0.0-0.012) X10*3/uL Nucleated RBC % (auto) 0.0 (0.0-0.2) /100WBC Smear Tech's Comments VERIFIED Sodium 142 (135-145) mmol/L Potassium 3.2 L (3.3-5.1) mmol/L Chloride 104 (96-108) mmol/L Carbon Dioxide 25 (22-29) mmol/L Anion Gap 16 (12-20) BUN 10 (9-16) mg/dL Creatinine 0.85 (0.5-1.4) mg/dL Estim Creat Clear Calc 100.6 Estimated GFR > 60 Random Glucose 166 H (60-115) mg/dL Calcium 10.2 (8.4-10.2) mg/dL Magnesium 1.8 (1.6-2.6) mg/dL Total Bilirubin 1.7 H (0.0-1.0) mg/dL Direct Bilirubin 0.7 H (0.0-0.5) mg/dL AST 33 (5-37) U/L ALT 42 H (0-40) U/L Alkaline Phosphatase 140 H (39-117) U/L Troponin I High Sens < 2.7 (<3.5-35.0) ng/L Total Protein 7.9 (6.5-8.0) g/dL Albumin 4.3 (3.5-5.0) g/dL Lipase 270 H (8-78) U/L Urine Color Yellow Urine Appearance Clear Urine pH 7.5 (5.0-9.0) Ur Specific [place] >= 1.030 H (1.005-1.025) Urine Protein 30 (1+) H (Neg-Trace) mg/dL Urine Glucose (UA) Negative (Negative) mg/dL Urine Ketones Trace (Negative) mg/dL Urine Blood Negative (Negative) Urine Nitrite Negative (Negative) Ur Leukocyte Esterase Negative (Negative) Urine RBC 0-2 (0-2) /HPF Urine WBC 0-5 (0-5) /HPF Ur Squamous Epith Cells 0-2 (0-2) /HPF Urine Bacteria None Seen (None Seen) Hyaline Casts 0-2 (0-2) /LPF Urine Opiates Screen POSITIVE H (Not Detect) Ur Buprenorphine Scrn Not Detected (Not Detect) ng/mL Ur Oxycodone Screen Not Detected (Not Detect) ng/mL Urine Methadone Screen Not Detected (Not Detect) ng/mL Urine Fentanyl Screen Not Detected (Not Detect) Ur Barbiturates Screen Not Detected (Not Detect) Ur Phencyclidine Scrn Not Detected (Not Detect) Ur Amphetamines Screen Not Detected (Not Detect) U Benzodiazepines Scrn Not Detected (Not Detect) Urine Cocaine Screen Not Detected (Not Detect) U Marijuana (THC) Screen POSITIVE H (Not Detect) Ethyl Alcohol < 10 mg/dL Independent Interpretation I performed an independent interpretation of an: EKG and Plain X-Ray (No consolidation infiltrate or pneumothorax) Interpretation: Rate: 90 Rhythm:? Sinus rhythm Normal P waves.? Normal MEL.?? Normal QRS complex.?? ST T wave :??No ST elevation, no ST depression qTC: 464 prior studies:? None available for review The study has been interpreted contemporaneously by me. Radiology Impression Discussion of test interpretation with radiology: I have reviewed the radiologist's reading. Radiologist Impression: XR/XR chest 1V IMPRESSION: No active disease. CT/CT abdomen pelvis w IV con IMPRESSION: 1. Significant inflammatory changes centered about the pancreatic head and neck favoring acute pancreatitis. No definite pancreatic necrosis. Please correlate with laboratory work up. Possibility of a primary duodenal process is felt to be less likely. 2. Possible punctate calculus within the distal intrapancreatic segment of the CBD which could be minimal choledocholithiasis. Fleischner guidelines were followed. Independent Historian Clinical information obtained from an independent historian. History obtained from or confirmed by: Parent (Mother) External Record Review External record reviewed: Inpatient record (September of 2022 as noted above) Medications Administered Generic Name Dose Route Start Last Admin Trade Name Freq PRN Reason Stop Dose Admin Enoxaparin Sodium 40 mg 12/26/23 21:00 12/26/23 20:41 Enoxaparin Sodium 40 Mg/0.4 Ml Syringe SUBCUT 40 mg Q24H MARVEL Administration Gabapentin 100 mg 12/26/23 21:00 12/26/23 20:41 Gabapentin 100 Mg Capsule PO 100 mg TID MARVEL Administration Hydromorphone HCl 1 mg 12/26/23 20:14 12/26/23 21:36 Hydromorphone Hcl 1 Mg/Ml Syringe IVPUSH 1 mg Q3H PRN Administration moderate pain Protocol Lactated Ringer's 1,000 mls @ 150 mls/hr 12/26/23 20:15 12/26/23 20:43 Lr IVCONT 150 mls/hr .Q6H40M MARVEL Administration Methocarbamol 750 mg 12/26/23 21:00 12/26/23 20:41 Methocarbamol 750 Mg Tablet PO 750 mg BID MARVEL Administration Discontinued Medications Generic Name Dose Route Start Last Admin Trade Name Freq PRN Reason Stop Dose Admin Sodium Chloride 1,000 mls @ 999 mls/hr 12/26/23 16:30 12/26/23 17:45 Ns IV 12/26/23 17:30 Infused .Q1H1M MARVEL Infusion Iohexol 100 ml 12/26/23 16:58 12/26/23 16:58 Iohexol 350 Mg/Ml 100 Ml Infus..Btl IV 12/26/23 16:59 85 ml ONCE ONE Administration Metoclopramide HCl 10 mg 12/26/23 17:39 12/26/23 17:44 Metoclopramide Hcl 10 Mg/2 Ml Vial IVPUSH 12/26/23 17:40 10 mg ONCE ONE Administration Morphine Sulfate 4 mg 12/26/23 16:17 12/26/23 16:27 Morphine Sulfate 4 Mg/Ml Cartridge IVPUSH 12/26/23 16:18 4 mg ONCE ONE Administration Protocol Morphine Sulfate 4 mg 12/26/23 19:01 12/26/23 19:09 Morphine Sulfate 4 Mg/Ml Cartridge IVPUSH 12/26/23 19:02 4 mg ONCE ONE Administration Protocol Ondansetron HCl 4 mg 12/26/23 16:17 12/26/23 16:27 Ondansetron Hcl 4 Mg/2 Ml Vial IVPUSH 12/26/23 16:18 4 mg ONCE ONE Administration Phenobarbital Sodium 254 mg 12/26/23 19:30 12/26/23 19:26 Phenobarbital Sodium 130 Mg/Ml Im Once IM 12/26/23 19:31 254 mg ONCE ONE Administration Protocol Phenobarbital Sodium 190 mg 12/26/23 22:30 12/26/23 22:46 Phenobarbital Sodium 130 Mg/Ml Vial Im Q3hx2 IM 12/27/23 01:31 190 mg Q3H MARVEL Administration Protocol Potassium Chloride 40 meq 12/26/23 16:23 12/26/23 16:30 Potassium Chloride Packet 20 Meq Packet PO 12/26/23 16:24 40 meq ONCE ONE Administration Critical Care Time Critical Care Time Critical Care Time: Yes Total Critical Care Time: 39 Attestation: I personally attest to this critical care time spent taking care of the patient exclusive of all other billable procedures was approximately 39 minutes including initial evaluation of patient, ordering tests, IV morphine and re-evaluation, medical consultation, documentation, re-evaluation. Discharge Plan Discharge Clinical Impression: Pancreatitis Patient Disposition: Admitted As Inpatient
[2023-12-26 15:43] LABS: Alanine Aminotransferase 42 U/L (0-40); Albumin Level 4.3 g/dL (3.5-5.0); Alkaline Phosphatase 140 U/L (39-117); Anion Gap 16 (12-20); Aspartate Amino Transferase 33 U/L (5-37); Bilirubin Direct 0.7 mg/dL (0.0-0.5); Bilirubin Total 1.7 mg/dL (0.0-1.0); Blood Urea Nitrogen 10 mg/dL (9-16); Calcium 10.2 mg/dL (8.4-10.2); Carbon Dioxide 25 mmol/L (22-29); Chloride 104 mmol/L (96-108); Creatinine Clr Calc Pharmacy 100.6; Estimated Glomerular Filt Rate > 60; Ethanol < 10 mg/dL; Glucose Random 166 mg/dL (60-115); Lipase 270 U/L (8-78); Magnesium 1.8 mg/dL (1.6-2.6); Potassium 3.2 mmol/L (3.3-5.1); Sodium 142 mmol/L (135-145); Total Protein 7.9 g/dL (6.5-8.0)
[2023-12-26 15:44] VITALS: BP 184/101; PULSE 70; RESP 18; TEMP 36.6; O2SAT 95
[2023-12-26 15:51] LABS: Troponin-I High Sensitivity < 2.7 ng/L (<3.5-35.0)
[2023-12-26 16:02] LABS: Basophils Percent Auto 0.2 % (0-2); Hematocrit 49.2 % (42.0-52.0); Imm Gran Abs Auto 0.08 X10*3/uL (0.00-0.03); Imm Gran Pct Auto 0.5 % (0.0-0.4); Lymphocytes Absolute Auto 1.6 X10*3/uL (1.2-4.9); Lymphocytes Percent Auto 10.7 % (20-40); MANUAL DIFF FLAG SCAN; Mean Corpuscular Volume 95.7 fL (80.0-98.0); Mean Platelet Volume 11.5 fL (9.4-12.4); Monocytes Absolute Auto 1.1 X10*3/uL (0.1-1.2); Monocytes Percent Auto 6.9 % (2-11); Neutrophils Absolute Auto 12.6 x10*3/uL (2.0-8.3); Neutrophils Percent Auto 81.7 % (45-73); Platelet Count 269 X10*3/uL (160-400); Red Blood Count 5.14 X10*6/uL (4.60-5.80); Red Cell Distribution Width 13.6 % (11.0-16.0); SCAN SMEAR FLAG 1; White Blood Count 15.4 X10*3/uL (4.8-10.8)
[2023-12-26] MEDS: Morphine Sulfate 4 MG/ML CARTRIDGE IVPUSH ×2 (16:27→19:09)
[2023-12-26] MEDS: ondansetron HCL 4 MG/2 ML VIAL IVPUSH (16:27)
[2023-12-26] MEDS: 0.9 % Sodium Chloride 1,000 ML 999 ML IV (16:29)
[2023-12-26] MEDS: Potassium Chloride Packet 20 MEQ PACKET 40 MEQ PO (16:30)
[2023-12-26 16:32] VITALS: BP 141/92; PULSE 82; RESP 18; O2SAT 97
[2023-12-26 16:49] LABS: Hemoglobin 16.5 g/dl (14.0-18.0); Mean Corpuscular HGB Conc 33.5 g/dl (31.0-36.0); Mean Corpuscular Hemoglobin 32.1 pg (27.0-33.0)
[2023-12-26 16:51] LABS: SLIDE REVIEW VERIFIED
[2023-12-26] MEDS: iohexoL 350 MG/ML 100 ML INFUS..BTL IV (16:58)
[2023-12-26] MEDS: Metoclopramide HCl 10 MG/2 ML VIAL IVPUSH (17:44)
[2023-12-26 18:29] VITALS: BP 136/78; PULSE 72; RESP 14; O2SAT 96
[2023-12-26 18:50] LABS: Appearance Urine Clear; Color Urine Yellow; Glucose Urine UA Negative (Negative); Leukocyte Esterase Urine Negative (Negative); Nitrite Urine Negative (Negative); PH 7.5 (5.0-9.0); Specific Gravity - Urine >= 1.030 (1.005-1.025); UMIC TRIGGER UACC YES; Urine Blood Negative (Negative); Urine Ketones Trace mg/dL (Negative); Urine Protein 30 (1+) mg/dL (Neg-Trace)
[2023-12-26 19:00] LABS: Amphetamine Screen Urine Not Detected (Not Detect); Barbiturates, Urine Not Detected (Not Detect); Benzodiazepines Screen Urine Not Detected (Not Detect); Buprenorphine Scr Not Detected (Not Detect); Cannabinoid Screen Urine POSITIVE (Not Detect); Cocaine Screen Urine Not Detected (Not Detect); Fentanyl, urine Not Detected (Not Detect); Methadone Screen, Urine Not Detected (Not Detect); Opiate Screen Urine POSITIVE (Not Detect); Oxycodone Screen Urine Not Detected (Not Detect); Phencyclidine Screen Urine Not Detected (Not Detect)
[2023-12-26 19:02] LABS: Bacteria Urine None Seen (None Seen); Hyaline Casts Urine 0-2 /LPF (0-2); RBC Urine 0-2 /HPF (0-2); Squamous Epithelial Cell Urine 0-2 /HPF (0-2); WBC Urine 0-5 /HPF (0-5)
[2023-12-26 19:11] VITALS: BMI 22.2
[2023-12-26] MEDS: PHENobarbitaL sodium 130 MG/ML IM ONCE 254 MG IM (19:26)
--- NOTE | 2023-12-26 20:04 | PHA.MEDREC ---
Addendum entered by Sohail Gray rudy 12/26/23 20:15: med rec reviewed Original Note: Pharmacy Consult ? Medication Reconciliation Pharmacy has completed the medication reconciliation. Spoke to patient to confirm med list. Patient was able to name off the medications he is taking. Patient states he is not taking Famotidine 40 mg daily, Folic Acid 1 mg daily, and Vitamin B1 100 mg daily, because he is having trouble filling from his pharmacy.
--- NOTE | 2023-12-26 20:17 | P.HPHOSP_ITS ---
History of Present Illness Date of Service: 12/26/23 Chief Complaint: abd pain 43M PMH etoh dependence, htn presented with abd pain. Patient reports several days of epigastric abdominal pain radiating to back associated with nausea vomiting and bile emesis. Denies fever, chills. Nausea vomiting has worsened over the last 24 hours has been unable to tolerate any p.o.. Last alcoholic drink was early a.m. prior to presentation. In ED CT abdomen significant for acute pancreatitis and possible punctate calculus within the distal intrapancreatic segment of the CBD. Review of Systems 2 Review of Systems: Yes all other systems are reviewed and are negative [facility] Medical History Cigarette smoker Anxiety Hypertension Alcohol use disorder Family History Father COPD (chronic obstructive pulmonary disease) Maternal Grandmother [place] (myocardial infarction) Social History Household Members: Family Housing: House Do you presently have visiting nurse or other home services: No Alcohol intake: current Alcohol intake frequency: 3 or more drinks per day Alcohol type: hard liquor Patient Tobacco Use Status: Current everyday Tobacco user Tobacco use type: Cigarette Cigarette Packs Per Day: 0.5 Smoked in Last 30 Days: Yes Use of substances other than those prescribed or required for medical reasons: Yes Substance Use Type: Marijuana Advance Directives: No Advance Directives Information Provided: Yes service: No Current occupational status: employed Meds Allergies Allergy/AdvReac Type Severity Reaction Status Date / Time No Known Allergies Allergy Verified 12/26/23 15:17 Active Medications: Current Medications Acetaminophen (Acetaminophen 325 Mg Tablet) 325 mg PO QID PRN PRN Reason: mPain Atenolol (Atenolol 25 Mg Tablet) 25 mg PO DAILY [facility]; Protocol Gabapentin (Gabapentin 100 Mg Capsule) 100 mg PO TID [facility] Magnesium Oxide (Magnesium Oxide 400 Mg Tablet) 400 mg PO DAILY [facility] Methocarbamol (Methocarbamol 750 Mg Tablet) 750 mg PO BID [facility] Multivitamins/Vitamin C (Multivitamin Tablet) 1 tab PO DAILY [facility] Naltrexone HCl (Naltrexone Hcl 50 Mg Tablet) 50 mg PO DAILY [facility] Omeprazole (Omeprazole 20 Mg Capsule.Dr) 20 mg PO DAILY@0630 [facility] Ondansetron HCl (Ondansetron Odt 4 Mg Tab.Rapdis) 4 mg TRANSLINGU Q8H PRN PRN Reason: nausea and vomiting Pharmacy Consult (Consult Rx Etoh Phenob Im/Po) 1 each MISCELLANE ONCE PRN; Protocol PRN Reason: Consult order Phenobarbital (Phenobarbital 15 Mg Tablet) 45 mg PO BID MARVEL; Protocol Stop: 12/28/23 21:01 Phenobarbital (Phenobarbital 30 Mg Tablet) 30 mg PO BID MARVEL; Protocol Stop: 12/30/23 21:01 Phenobarbital (Phenobarbital 30 Mg Tablet) 30 mg PO DAILY MARVEL; Protocol Stop: 01/01/24 09:01 Phenobarbital Sodium (Phenobarbital Sodium 130 Mg/Ml Vial Im Q3hx2) 190 mg IM Q3H MARVEL; Protocol Stop: 12/27/23 01:31 Trazodone HCl (Trazodone Hcl 100 Mg Tablet) 100 mg PO BEDTIME PRN PRN Reason: Sleep Home Medications ?Medication ?Instructions ?Recorded ?Confirmed ?Last Taken ?Type atenolol 50 mg tablet 25 mg PO DAILY 10/10/22 12/26/23 12/26/23 History multivitamin 1 tab PO DAILY 10/10/22 12/26/23 12/26/23 History acetaminophen 325 mg capsule 325 mg PO QID PRN Pain 09/10/23 12/26/23 Unknown History (Tylenol) methocarbamol 750 mg tablet 750 mg PO BID 09/10/23 12/26/23 12/26/23 History naltrexone 50 mg tablet 50 mg PO DAILY 09/10/23 12/26/23 12/26/23 History trazodone 50 mg tablet 100 mg PO BEDTIME PRN Sleep 09/10/23 12/26/23 Unknown History lorazepam 0.5 mg tablet 0.5 mg PO BID PRN Anxiety 12/26/23 12/26/23 Unknown History magnesium oxide 400 mg PO DAILY 12/26/23 12/26/23 12/26/23 History nicotine 21 mg/24 hr daily 21 mg topical DAILY 12/26/23 12/26/23 12/26/23 History transdermal patch omeprazole 20 mg capsule,delayed 20 mg PO DAILY@0630 12/26/23 12/26/23 12/26/23 History release potassium chloride 10 mEq 10 meq PO DAILY 12/26/23 12/26/23 12/26/23 History tablet,extended release Physical Exam 2 Vital Signs and Narrative: Vital Signs: Last Vital Signs Temp 97.9 F 12/26/23 15:44 Pulse 72 12/26/23 18:29 Resp 14 12/26/23 18:29 BP 136/78 12/26/23 18:29 Pulse Ox 96 12/26/23 18:29 O2 Del Method Room Air 12/26/23 18:29 BMI result Body Mass Index 22.2 General: AO X 3, no acute distress Resp: CTA bilateral, no accessory muscles used CVS: S1,S2,RRR GI: soft, tender, non distended Neuro: motor grossly intact, alert Psych: appropriate affect, appropriate insight Results Labs 12/26/23 15:11 12/26/23 15:11 Labs: Laboratory Results - last 24 hr 12/26/23 12/26/23 15:11 18:28 MCV 95.7 MCH 32.1 MCHC 33.5 RDW 13.6 Plt Count 269 D MPV 11.5 Immature Gran % (Auto) 0.5 H Neut % (Auto) 81.7 H Lymph % (Auto) 10.7 L [place] % (Auto) 6.9 Eos % (Auto) 0.0 Baso % (Auto) 0.2 Lymph # (Auto) 1.6 [place] # (Auto) 1.1 Eos # (Auto) 0.0 Baso # (Auto) 0.0 Abs Immat Gran (auto) 0.08 H Absolute Neuts (auto) 12.6 H Absolute Nucleated RBC 0.000 Nucleated RBC % (auto) 0.0 Smear Tech's Comments VERIFIED Anion Gap 16 Estim Creat Clear Calc 100.6 Estimated GFR > 60 Random Glucose 166 H Calcium 10.2 Magnesium 1.8 Total Bilirubin 1.7 H Direct Bilirubin 0.7 H AST 33 ALT 42 H Alkaline Phosphatase 140 H Troponin I High Sens < 2.7 Total Protein 7.9 Albumin 4.3 Lipase 270 H Urine Color Yellow Urine Appearance Clear Urine pH 7.5 Ur Specific [place] >= 1.030 H Urine Protein 30 (1+) H Urine Glucose (UA) Negative Urine Ketones Trace Urine Blood Negative Urine Nitrite Negative Ur Leukocyte Esterase Negative Urine RBC 0-2 Urine WBC 0-5 Ur Squamous Epith Cells 0-2 Urine Bacteria None Seen Hyaline Casts 0-2 Urine Opiates Screen POSITIVE H Ur Buprenorphine Scrn Not Detected Ur Oxycodone Screen Not Detected Urine Methadone Screen Not Detected Urine Fentanyl Screen Not Detected Ur Barbiturates Screen Not Detected Ur Phencyclidine Scrn Not Detected Ur Amphetamines Screen Not Detected U Benzodiazepines Scrn Not Detected Urine Cocaine Screen Not Detected U Marijuana (THC) Screen POSITIVE H Ethyl Alcohol < 10 Imaging Radiologist's Impressions: Impressions Chest X-Ray 12/26/23 15:26 IMPRESSION: No active disease. Abdomen/Pelvis CT 12/26/23 17:12 IMPRESSION: 1. Significant inflammatory changes centered about the pancreatic head and neck favoring acute pancreatitis. No definite pancreatic necrosis. Please correlate with laboratory work up. Possibility of a primary duodenal process is felt to be less likely. 2. Possible punctate calculus within the distal intrapancreatic segment of the CBD which could be minimal choledocholithiasis. Fleischner guidelines were followed. Assessment and Plan (1) Pancreatitis: Status: Acute Plan 43M PMH etoh dependence, htn presented with abd pain Acute pancreatitis Due to alcohol +/- gallstone IV hydration, pain meds, NPO MRCP, GI eval Hypertension Continue atenolol Alcohol dependence with withdrawal Continue phenobarbital, monitor CIWA DVT prophylaxis on Lovenox Full Code Patient with acute pancreatitis unable to tolerate p.o. also with alcohol withdrawal requiring IM phenobarbital. Likely require at least 2 midnights inpatient until he is able to tolerate adequate intake and no longer at risk for further withdrawal Quality Stroke Does the patient have a stroke diagnosis?: No VTE Prior VTE?: No VTE Risk Level:: Medical - moderate - high VTE Device Contraindication: Treatment Not Indicated VTE Drug Contraindication: N/A - Med Ordered
[2023-12-26] MEDS: Enoxaparin Sodium 40 MG/0.4 ML SYRINGE SUBCUT (20:41)
[2023-12-26] MEDS: Gabapentin 100 MG CAPSULE PO (20:41)
[2023-12-26] MEDS: methocarbamoL 750 MG TABLET PO (20:41)
[2023-12-26] MEDS: Lactated Ringers 1,000 ML 150 ML IVCONT (20:43)
[2023-12-26 21:32] VITALS: BP 151/85; PULSE 81; RESP 18; O2SAT 100
[2023-12-26] MEDS: HYDROmorphone HCl 1 MG/ML SYRINGE IVPUSH (21:36)
[2023-12-26 22:22] VITALS: BP 139/82; PULSE 62; RESP 20; TEMP 37; O2SAT 96
[2023-12-26] MEDS: PHENobarbitaL sodium 130 MG/ML VIAL IM Q3Hx2 190 MG IM (22:46)
[2023-12-27] VITALS (10 sets, daily range): BP systolic 128–147; BP diastolic 79–90; PULSE 55–87; RESP 14–20; TEMP 36.2–37; O2SAT 94–99; BMI 21.6
[2023-12-27] MEDS: PHENobarbitaL sodium 130 MG/ML VIAL IM Q3Hx2 190 MG IM (02:09)
[2023-12-27] MEDS: HYDROmorphone HCl 1 MG/ML SYRINGE IVPUSH ×5 (02:16→20:42)
[2023-12-27] MEDS: Metoclopramide HCl 10 MG/2 ML VIAL IVPUSH ×3 (03:09→20:42)
[2023-12-27] MEDS: Lactated Ringers 1,000 ML 150 ML IVCONT ×2 (04:46→19:21)
[2023-12-27 06:17] LABS: Mean Corpuscular Volume 96.5 fL (80.0-98.0); Mean Platelet Volume 11.7 fL (9.4-12.4); Platelet Count 221 X10*3/uL (160-400); Red Blood Count 4.04 X10*6/uL (4.60-5.80); Red Cell Distribution Width 13.4 % (11.0-16.0); White Blood Count 15.2 X10*3/uL (4.8-10.8)
[2023-12-27] MEDS: Omeprazole 20 MG CAPSULE.DR PO (06:19)
[2023-12-27] MEDS: Ondansetron ODT 4 MG TAB.RAPDIS TRANSLINGU ×2 (06:19→17:05)
[2023-12-27 06:31] LABS: Hemoglobin 13.1 g/dl (14.0-18.0); Mean Corpuscular HGB Conc 33.5 g/dl (31.0-36.0); Mean Corpuscular Hemoglobin 32.4 pg (27.0-33.0)
[2023-12-27 06:36] LABS: Alanine Aminotransferase 27 U/L (0-40); Albumin Level 3.2 g/dL (3.5-5.0); Alkaline Phosphatase 97 U/L (39-117); Anion Gap 13 (12-20); Aspartate Amino Transferase 26 U/L (5-37); Bilirubin Direct 0.6 mg/dL (0.0-0.5); Bilirubin Total 1.4 mg/dL (0.0-1.0); Blood Urea Nitrogen 8 mg/dL (9-16); Calcium 8.5 mg/dL (8.4-10.2); Carbon Dioxide 26 mmol/L (22-29); Chloride 103 mmol/L (96-108); Creatinine Clr Calc Pharmacy 133.1; Estimated Glomerular Filt Rate > 60; Glucose Fasting 122 mg/dL (60-99); Magnesium 1.6 mg/dL (1.6-2.6); Potassium 2.6 mmol/L (3.3-5.1); Sodium 139 mmol/L (135-145); Total Protein 5.9 g/dL (6.5-8.0)
[2023-12-27] MEDS: Potassium Chloride ER 20 MEQ TAB.ER.PRT 40 MEQ PO (07:43)
[2023-12-27] MEDS: Magnesium Sulfate/H2O 2 GM/50 ML PIGGYBACK IV (07:46)
--- NOTE | 2023-12-27 08:19 | P.CNGI_ITS ---
History of Present Illness Data of Consult Service Date: 12/27/23 Requesting physician: Ernesto Del Angel Primary Care Provider: Otoniel Rockwell MD HPI Reason for consult: pancreatitis, eoth +/- gallstone 43 YM with ETOH dependence, htn seen at [facility] [place] [place] [facility] on 12/26/23 with abd pain. Patient reported several days of 7-9/10 epigastric pain radiating to back associated with nausea vomiting and bile emesis. He denied fever, chills. Nausea vomiting has worsened over the last 24 hours has been unable to tolerate any p.o.. Last alcoholic drink was early a.m. prior to presentation. Pt admits to drinking 5 drinks of hard liquor daily and trying to cut back. he smokes 1/2 to 1 PPD of cigarettes Pt reports being evaluated at [facility] and advised to taper off alcohol and drink when he has withdrawal symptoms FAMILY HX: Patient's brother has pancreatitis due to alcohol. Family history is negative for colon polyps or GI malignancy Labs showed leukocytosis, lipase of 270, elevated LFT's. FU LFTs today show improvement from yesterday and lipase increased to 686. 12/26/[address] SCAN SHOWED: 1. Significant inflammatory changes centered about the pancreatic head and neck favoring acute pancreatitis. No definite pancreatic necrosis. Please correlate with laboratory work up. Possibility of a primary duodenal process is felt to be less likely. 2. Possible punctate calculus within the distal intrapancreatic segment of the CBD which could be minimal choledocholithiasis. 12/26/23 MRCP SHOWED: 1. Again seen is similar appearance of peripancreatic inflammatory change and free fluid most notably involving the pancreatic head which is markedly edematous. There is heterogeneous loss of the intrinsic T1 bright signal in the pancreatic head with lack of intravenous contrast limiting assessment for pancreatic necrosis however there are 2 ill-defined fluid collections within the pancreatic head measuring 0.9 cm and 0.9 cm adjacent to each other which may reflect acute necrotic collections, raising the suspicion for possible necrotizing pancreatitis. 2. Common bile duct is mildly dilated to 9 mm and tapers narrowly in the region of the pancreatic head to 2 mm likely reflecting mass effect from surrounding inflammatory change. No sudeep intrahepatic biliary duct dilatation. No definite intraluminal filling defect to suggest choledocholithiasis. 3. Again seen is duodenal wall thickening and periduodenal inflammatory changes favored to be reactive though differential considerations would include duodenitis. 4. Question of subtle nodularity of the hepatic contour, recommend correlation with risk factors for cirrhosis. PAST GI HISTORY REVIEW OF MEDICAL RECORDS: Pt was hospitalized at [facility] [place] in Sep, 2023 with acute alcoholic hepatitis: Patient was admitted for alcohol dependence with acute alcohol hepatitis and withdrawal complicated by ascites. He was treated with phenobarb, ciwa 0 at discharge. asites was drained and negative for SBP. patient educated on etoh avoidance. for chronic diarrhea, was treated with imodium, can follow up outpatient with gi, noted to have cdif pcr positive, but not active infection (negative toxin). for htn continued on atenolol. Review of Systems 2 Review of Systems: Yes all other systems are reviewed and are negative PMFSH Past Medical History Medical History Cigarette smoker Anxiety Hypertension Alcohol use disorder Family History Family History Father COPD (chronic obstructive pulmonary disease) Maternal Grandmother [place] (myocardial infarction) Social History Social History Household Members: Family Housing: House Do you presently have visiting nurse or other home services: No Alcohol intake: former Patient Tobacco Use Status: Current everyday Tobacco user Tobacco use type: Cigarette Cigarette Packs Per Day: 0.5 Cigarettes Per Day: 10.0 Years Smoked: 25 Smoked in Last 30 Days: Yes e-Cigarette/Vaping Use: Never Used Second Hand Smoke Exposure: Yes Use of substances other than those prescribed or required for medical reasons: Yes Substance Use Type: Marijuana Advance Directives: No Advance Directives Information Provided: No service: No Current occupational status: employed Meds Allergies Allergy/AdvReac Type Severity Reaction Status Date / Time No Known Allergies Allergy Verified 01/02/24 11:53 Active Medications: Current Medications Acetaminophen (Acetaminophen 325 Mg Tablet) 325 mg PO QID PRN PRN Reason: mPain Atenolol (Atenolol 25 Mg Tablet) 25 mg PO DAILY [facility]; Protocol Enoxaparin Sodium (Enoxaparin Sodium 40 Mg/0.4 Ml Syringe) 40 mg SUBCUT Q24H [facility] Last Admin: 12/26/23 20:41 Dose: 40 mg Gabapentin (Gabapentin 100 Mg Capsule) 100 mg PO TID [facility] Last Admin: 12/26/23 20:41 Dose: 100 mg Hydromorphone HCl (Hydromorphone Hcl 1 Mg/Ml Syringe) 1 mg IVPUSH Q3H PRN; Protocol PRN Reason: moderate pain Last Admin: 12/27/23 06:20 Dose: 1 mg Lactated Ringer's (Lr) 1,000 mls @ 150 mls/hr IVCONT .Q6H40M [facility] Last Admin: 12/27/23 04:46 Dose: 150 mls/hr Magnesium Sulfate (Magnesium Sulfate/H2o) 2 gm in 50 mls @ 25 mls/hr IV ONCE ONE Stop: 12/27/23 08:39 Last Admin: 12/27/23 07:46 Dose: 25 mls/hr Magnesium Oxide (Magnesium Oxide 400 Mg Tablet) 400 mg PO DAILY [facility] Methocarbamol (Methocarbamol 750 Mg Tablet) 750 mg PO BID [facility] Last Admin: 12/26/23 20:41 Dose: 750 mg Metoclopramide HCl (Metoclopramide Hcl 10 Mg/2 Ml Vial) 10 mg IVPUSH Q8H PRN PRN Reason: nasuea Last Admin: 12/27/23 03:09 Dose: 10 mg Multivitamins/Vitamin C (Multivitamin Tablet) 1 tab PO DAILY [facility] Naltrexone HCl (Naltrexone Hcl 50 Mg Tablet) 50 mg PO DAILY [facility] Omeprazole (Omeprazole 20 Mg Capsule.Dr) 20 mg PO DAILY@0630 [facility] Last Admin: 12/27/23 06:19 Dose: 20 mg Ondansetron HCl (Ondansetron Odt 4 Mg Tab.Rapdis) 4 mg TRANSLINGU Q8H PRN PRN Reason: nausea and vomiting Last Admin: 12/27/23 06:19 Dose: 4 mg Pharmacy Consult (Consult Rx Etoh Phenob Im/Po) 1 each MISCELLANE ONCE PRN; Protocol PRN Reason: Consult order Phenobarbital (Phenobarbital 15 Mg Tablet) 45 mg PO BID [facility]; Protocol Stop: 12/28/23 21:01 Phenobarbital (Phenobarbital 30 Mg Tablet) 30 mg PO BID [facility]; Protocol Stop: 12/30/23 21:01 Phenobarbital (Phenobarbital 30 Mg Tablet) 30 mg PO DAILY [facility]; Protocol Stop: 01/01/24 09:01 Potassium Chloride (Potassium Chloride Er 20 Meq Tab.Er.Prt) 20 meq PO ONCE ONE Stop: 12/27/23 10:42 Trazodone HCl (Trazodone Hcl 100 Mg Tablet) 100 mg PO BEDTIME PRN PRN Reason: Sleep Home Medications ?Medication ?Instructions ?Recorded ?Confirmed ?Last Taken ?Type atenolol 50 mg tablet 25 mg PO DAILY 10/10/22 01/02/24 01/02/24 History multivitamin 1 tab PO DAILY 10/10/22 01/02/24 01/02/24 History acetaminophen 325 mg capsule 325 mg PO QID PRN Pain 09/10/23 01/02/24 Unknown History (Tylenol) methocarbamol 750 mg tablet 750 mg PO BID 09/10/23 01/02/24 01/02/24 History naltrexone 50 mg tablet 50 mg PO DAILY 09/10/23 01/02/24 01/02/24 History trazodone 50 mg tablet 100 mg PO BEDTIME PRN Sleep 09/10/23 01/02/24 Unknown History lorazepam 0.5 mg tablet 0.5 mg PO BID PRN Anxiety 12/26/23 01/02/24 Unknown History magnesium oxide 400 mg PO DAILY 12/26/23 01/02/24 01/02/24 History nicotine 21 mg/24 hr daily 21 mg topical DAILY 12/26/23 01/02/24 01/02/24 History transdermal patch omeprazole 20 mg capsule,delayed 20 mg PO DAILY@0630 12/26/23 01/02/24 01/02/24 History release Physical Exam 2 Vital Signs: Vital Signs: Last Vital Signs Temp 98.2 F 12/27/23 07:49 Pulse 87 12/27/23 07:49 Resp 14 12/27/23 07:49 BP 142/90 H 12/27/23 07:49 Pulse Ox 97 12/27/23 07:49 O2 Del Method Room Air 12/27/23 07:49 BMI result Body Mass Index 22.2 Const: Other: General awake alert x3 in no acute distress. Anicteric sclera Neck no JVD. CVS regular rate rhythm, Respiratory lungs clear to auscultation, no respiratory distress, no wheeze, no rhonchi. Gastrointestinal abdomen soft, mild diffuse upper abdominal tenderness, bowel sounds audible, no guarding , no rigidity. Extremities no edema. Neuro non focal Skin no rash Appropriate affect Results Labs 12/29/23 06:19 12/30/23 06:18 Labs: Short CBC 12/26/23 12/27/23 Range/Units 15:11 05:04 WBC 15.4 H 15.2 H (4.8-10.8) X10*3/uL Hgb 16.5 13.1 L D (14.0-18.0) g/dl Hct 49.2 39.0 L D (42.0-52.0) % Plt Count 269 D 221 (160-400) X10*3/uL BMP 12/26/23 12/27/23 15:11 05:04 Sodium 142 139 Potassium 3.2 L 2.6 L* Chloride 104 103 Carbon Dioxide 25 26 BUN 10 8 L Creatinine 0.85 0.67 Calcium 10.2 8.5 D Liver Function 12/26/23 12/27/23 Range/Units 15:11 05:04 Total Bilirubin 1.7 H 1.4 H (0.0-1.0) mg/dL Direct Bilirubin 0.7 H 0.6 H (0.0-0.5) mg/dL AST 33 26 (5-37) U/L ALT 42 H 27 (0-40) U/L Alkaline Phosphatase 140 H 97 (39-117) U/L Albumin 4.3 3.2 L (3.5-5.0) g/dL Urine 12/26/23 Range/Units 18:28 Urine Color Yellow Urine Appearance Clear Urine pH 7.5 (5.0-9.0) Ur Specific [place] >= 1.030 H (1.005-1.025) Urine Protein 30 (1+) H (Neg-Trace) mg/dL Urine Glucose (UA) Negative (Negative) mg/dL Assessment and Plan (1) Pancreatitis: Status: Acute (2) Alcohol use disorder: Status: Acute Plan 43 YM with ETOH dependence, htn seen at [facility] [place] [place] [facility] on 12/26/23 with abd pain. Labs showed leukocytosis, lipase of 270, elevated LFT's. FU LFTs today show improvement from yesterday and lipase increased to 686. RECOMMENDATIONS: 1. Agree with bowel rest, IV antiemetics and pain medications 2. [place] protocol for ETOH withdrawl Procedures Date of Service Date of Service: 01/04/24
[2023-12-27 09:11] LABS: Lipase 686 U/L (8-78)
[2023-12-27] MEDS: Potassium Chloride/H20 10 MEQ/100 ML PIGGYBACK 100 MEQ IV ×2 (09:41→11:59)
[2023-12-27] MEDS: PHENobarbitaL 15 MG TABLET 45 MG PO ×2 (09:42→20:42)
[2023-12-27] MEDS: atenoloL 25 MG TABLET PO (09:43)
[2023-12-27] MEDS: Multivitamin TABLET 1 TAB PO (09:43)
[2023-12-27] MEDS: Gabapentin 100 MG CAPSULE PO ×3 (09:44→20:42)
[2023-12-27] MEDS: methocarbamoL 750 MG TABLET PO ×2 (09:44→20:41)
[2023-12-27] MEDS: Magnesium Oxide 400 MG TABLET PO (09:45)
[2023-12-27] MEDS: Potassium Chloride ER 20 MEQ TAB.ER.PRT PO (09:49)
[2023-12-27] MEDS: Naltrexone HCl 50 MG TABLET PO (09:59)
[2023-12-27] MEDS: KCl 20 mEq in 5 % Dex/Lact Rin 20 MEQ/1,000 ML IV.SOLN 150 MEQ IVCONT (10:28)
--- NOTE | 2023-12-27 15:17 | P.PNIM_ITS ---
Subjective Subjective Date of Service: 12/27/23 Interval History: Being followed for alcohol withdrawal and acute pancreatitis. Complaining of persistent mid abdominal pain with radiation to back and burping, taking sips of water, denies hallucination, no confusion, no shakiness no diarrhea, no sweating. Review of Systems All other symptoms are reviewed and are negative Physical Exam 2 Vital Signs: Vital Signs: Last Vital Signs Temp 98.1 F 12/27/23 15:11 Pulse 58 12/27/23 15:11 Resp 15 12/27/23 15:11 BP 136/79 12/27/23 15:11 Pulse Ox 96 12/27/23 15:11 O2 Del Method Room Air 12/27/23 15:11 BMI result Body Mass Index 22.2 Const: Other: General awake alert x3 in no acute distress. Anicteric sclera Neck no JVD. CVS regular rate rhythm, Respiratory lungs clear to auscultation, no respiratory distress, no wheeze, no rhonchi. Gastrointestinal abdomen distended, epigastric and mid abdominal tenderness to palpation, bowel sounds audible, no guarding , no rigidity. Extremities no edema. Neuro non focal Skin no rash Appropriate affect Objective Data Active Medications Acetaminophen (Acetaminophen 325 Mg Tablet) 325 mg PO QID PRN PRN Reason: mPain Atenolol (Atenolol 25 Mg Tablet) 25 mg PO DAILY [facility]; Protocol Last Admin: 12/27/23 09:43 Dose: 25 mg Documented By: RAOUL Enoxaparin Sodium (Enoxaparin Sodium 40 Mg/0.4 Ml Syringe) 40 mg SUBCUT Q24H [facility] Last Admin: 12/26/23 20:41 Dose: 40 mg Documented By: GEOVANI Gabapentin (Gabapentin 100 Mg Capsule) 100 mg PO TID [facility] Last Admin: 12/27/23 15:10 Dose: 100 mg Documented By: RAOUL Hydromorphone HCl (Hydromorphone Hcl 1 Mg/Ml Syringe) 1 mg IVPUSH Q3H PRN; Protocol PRN Reason: moderate pain Last Admin: 12/27/23 12:09 Dose: 1 mg Documented By: RAOUL Magnesium Oxide (Magnesium Oxide 400 Mg Tablet) 400 mg PO DAILY [facility] Last Admin: 12/27/23 09:45 Dose: 400 mg Documented By: RAOUL Methocarbamol (Methocarbamol 750 Mg Tablet) 750 mg PO BID [facility] Last Admin: 12/27/23 09:44 Dose: 750 mg Documented By: RAOUL Metoclopramide HCl (Metoclopramide Hcl 10 Mg/2 Ml Vial) 10 mg IVPUSH Q8H PRN PRN Reason: nasuea Last Admin: 12/27/23 12:13 Dose: 10 mg Documented By: RAOUL Multivitamins/Vitamin C (Multivitamin Tablet) 1 tab PO DAILY [facility] Last Admin: 12/27/23 09:43 Dose: 1 tab Documented By: RAOUL Naltrexone HCl (Naltrexone Hcl 50 Mg Tablet) 50 mg PO DAILY [facility] Last Admin: 12/27/23 09:59 Dose: 50 mg Documented By: RAOUL Omeprazole (Omeprazole 20 Mg Capsule.Dr) 20 mg PO DAILY@0630 [facility] Last Admin: 12/27/23 06:19 Dose: 20 mg Documented By: KULWINDER Ondansetron HCl (Ondansetron Odt 4 Mg Tab.Rapdis) 4 mg TRANSLINGU Q8H PRN PRN Reason: nausea and vomiting Last Admin: 12/27/23 06:19 Dose: 4 mg Documented By: KULWINDER Pharmacy Consult (Consult Rx Etoh Phenob Im/Po) 1 each MISCELLANE ONCE PRN; Protocol PRN Reason: Consult order Phenobarbital (Phenobarbital 15 Mg Tablet) 45 mg PO BID [facility]; Protocol Stop: 12/28/23 21:01 Last Admin: 12/27/23 09:42 Dose: 45 mg Documented By: RAOUL Phenobarbital (Phenobarbital 30 Mg Tablet) 30 mg PO BID [facility]; Protocol Stop: 12/30/23 21:01 Phenobarbital (Phenobarbital 30 Mg Tablet) 30 mg PO DAILY [facility]; Protocol Stop: 01/01/24 09:01 Trazodone HCl (Trazodone Hcl 100 Mg Tablet) 100 mg PO BEDTIME PRN PRN Reason: Sleep Labs 12/27/23 05:04 12/27/23 05:04 Labs: Laboratory Results - last 24 hr 12/26/23 12/26/23 12/27/23 15:11 18:28 05:04 MCV 95.7 96.5 MCH 32.1 32.4 MCHC 33.5 33.5 RDW 13.6 13.4 Plt Count 269 D 221 MPV 11.5 11.7 Immature Gran % (Auto) 0.5 H Neut % (Auto) 81.7 H Lymph % (Auto) 10.7 L [place] % (Auto) 6.9 Eos % (Auto) 0.0 Baso % (Auto) 0.2 Lymph # (Auto) 1.6 [place] # (Auto) 1.1 Eos # (Auto) 0.0 Baso # (Auto) 0.0 Abs Immat Gran (auto) 0.08 H Absolute Neuts (auto) 12.6 H Absolute Nucleated RBC 0.000 0.000 Nucleated RBC % (auto) 0.0 0.0 Smear Tech's Comments VERIFIED Anion Gap 16 13 Estim Creat Clear Calc 100.6 133.1 Estimated GFR > 60 > 60 Random Glucose 166 H Fasting Glucose 122 H Calcium 10.2 8.5 D Magnesium 1.8 1.6 Total Bilirubin 1.7 H 1.4 H Direct Bilirubin 0.7 H 0.6 H AST 33 26 ALT 42 H 27 Alkaline Phosphatase 140 H 97 Troponin I High Sens < 2.7 Total Protein 7.9 5.9 L Albumin 4.3 3.2 L Lipase 270 H 686 H Urine Color Yellow Urine Appearance Clear Urine pH 7.5 Ur Specific [place] >= 1.030 H Urine Protein 30 (1+) H Urine Glucose (UA) Negative Urine Ketones Trace Urine Blood Negative Urine Nitrite Negative Ur Leukocyte Esterase Negative Urine RBC 0-2 Urine WBC 0-5 Ur Squamous Epith Cells 0-2 Urine Bacteria None Seen Hyaline Casts 0-2 Urine Opiates Screen POSITIVE H Ur Buprenorphine Scrn Not Detected Ur Oxycodone Screen Not Detected Urine Methadone Screen Not Detected Urine Fentanyl Screen Not Detected Ur Barbiturates Screen Not Detected Ur Phencyclidine Scrn Not Detected Ur Amphetamines Screen Not Detected U Benzodiazepines Scrn Not Detected Urine Cocaine Screen Not Detected U Marijuana (THC) Screen POSITIVE H Ethyl Alcohol < 10 Assessment and Plan (1) Pancreatitis: Status: Acute (2) Alcohol use disorder: Status: Acute Plan 43M PMH etoh dependence, htn presented with abd pain Acute pancreatitis Due to alcohol CT abdomen and pelvis showed significant inflammatory changes of pancreatic head and neck, and possible minimal choledocholithiasis MRI abdomen showed markedly edematous pancreatic head, to ill-defined fluid collection within pancreatic head which may reflect acute necrotic collection raising suspicion for possible necrotizing pancreatitis, no sudeep intra hepatic biliary ductal dilatation, no definite intraluminal filling defect to suggest choledocholithiasis noted, duodenal wall thickening and peritoneal inflammatory changes noted likely reactive the differential include duodenitis Will continue aggressive IV hydration, pain meds, clear liquids Follow CBC, LFTs, renal function and electrolytes. GI consult Acute hypokalemia will replete and follow labs Hypertension Continue atenolol Alcohol dependence with withdrawal Continue phenobarbital, monitor CIWA Tobacco use disorder counseling done, will place on nicotine patch. DVT prophylaxis on Lovenox Full Code Patient with acute pancreatitis unable to tolerate p.o. requiring IV fluids and close monitoring of electrolytes, renal function, also with alcohol withdrawal requiring IM phenobarbital. Quality Stroke Does the patient have a stroke diagnosis?: No VTE Prior VTE?: No VTE Risk Level:: Medical - moderate - high VTE Device Contraindication: Treatment Not Indicated VTE Drug Contraindication: N/A - Med Ordered
--- NOTE | 2023-12-27 16:02 | MHC.CM.PN ---
Pt lives with his brother, he is independent, no home health services or DME. PCP confirmed: Otoniel Rockwell, HCP form completed here and added to chart. He is able to arrange transportation at [place]. DCP: home, self care, CM to follow for DC needs.
[2023-12-27] MEDS: Famotidine/PF 20 MG/2 ML VIAL IVPUSH (17:55)
[2023-12-27] MEDS: Nicotine 14 MG PATCH.TD24 TRANSDERMA (17:55)
[2023-12-27 18:23] LABS: Anion Gap 9 (12-20); Carbon Dioxide 29 mmol/L (22-29); Chloride 104 mmol/L (96-108); Potassium 4.1 mmol/L (3.3-5.1); Sodium 138 mmol/L (135-145)
--- NOTE | 2023-12-27 19:21 | PC.NURSE ---
this RN resumed care of pt at 1845. a&ox4. vss and up to date. nsr on the youth nutritional monitor. pt reporting 8/10 pain and nausea despite previous interventions. pt reporting recent medication administration was not effective. pt notified that prn medication is not able to be administered at this time but will check back shortly to assess/see if pain level has changed. LR infusing at 150mls/hr at this time. early administration ok per admitting provider order. access remains patent/intact. pt waiting for bed assignment at this time. no sob/wob noted. respirations even/unlabored. plan of care ongoing. call tripp placed within reach.
[2023-12-27] MEDS: Enoxaparin Sodium 40 MG/0.4 ML SYRINGE SUBCUT (20:42)
--- NOTE | 2023-12-27 20:47 | PC.NURSE ---
aside from active/frequent vomiting, pt has no sx of alcohol withdrawal. updated CIWA = 7. pt medicated per provider order. prn medication utilized. effectiveness pending.
[2023-12-28] VITALS (7 sets, daily range): BP systolic 120–168; BP diastolic 78–90; PULSE 60–75; RESP 18–20; TEMP 36.2–37.3; O2SAT 95–100
[2023-12-28] MEDS: Lactated Ringers 1,000 ML 150 ML IVCONT ×3 (02:12→17:08)
[2023-12-28] MEDS: Ondansetron ODT 4 MG TAB.RAPDIS TRANSLINGU (03:49)
[2023-12-28 06:09] LABS: Hematocrit 36.2 % (42.0-52.0); Mean Corpuscular Volume 97.8 fL (80.0-98.0); Mean Platelet Volume 11.5 fL (9.4-12.4); Platelet Count 162 X10*3/uL (160-400); Red Cell Distribution Width 13.4 % (11.0-16.0); WBC ABN SCTR FOR CBC 1
[2023-12-28 06:11] LABS: Hemoglobin 12.1 g/dl (14.0-18.0); Mean Corpuscular HGB Conc 33.5 g/dl (31.0-36.0); Mean Corpuscular Hemoglobin 32.8 pg (27.0-33.0); White Blood Count 11.9 X10*3/uL (4.8-10.8)
[2023-12-28] MEDS: HYDROmorphone HCl 1 MG/ML SYRINGE IVPUSH ×4 (06:17→22:06)
[2023-12-28] MEDS: Metoclopramide HCl 10 MG/2 ML VIAL IVPUSH ×3 (06:17→22:12)
[2023-12-28] MEDS: Omeprazole 20 MG CAPSULE.DR PO (06:17)
[2023-12-28 06:38] LABS: Alanine Aminotransferase 20 U/L (0-40); Albumin Level 2.9 g/dL (3.5-5.0); Alkaline Phosphatase 88 U/L (39-117); Anion Gap 12 (12-20); Aspartate Amino Transferase 22 U/L (5-37); Bilirubin Direct 0.5 mg/dL (0.0-0.5); Bilirubin Total 1.2 mg/dL (0.0-1.0); Blood Urea Nitrogen 4 mg/dL (9-16); Calcium 8.6 mg/dL (8.4-10.2); Carbon Dioxide 28 mmol/L (22-29); Chloride 101 mmol/L (96-108); Creatinine Clr Calc Pharmacy 137.7; Estimated Glomerular Filt Rate > 60; Glucose Random 89 mg/dL (60-115); Magnesium 1.8 mg/dL (1.6-2.6); Potassium 3.6 mmol/L (3.3-5.1); Sodium 137 mmol/L (135-145); Total Protein 5.2 g/dL (6.5-8.0); Triglycerides 119 mg/dL (<150)
[2023-12-28] MEDS: Famotidine/PF 20 MG/2 ML VIAL IVPUSH (09:02)
[2023-12-28] MEDS: Nicotine 14 MG PATCH.TD24 TRANSDERMA (09:02)
[2023-12-28] MEDS: Gabapentin 100 MG CAPSULE PO ×3 (09:02→22:05)
[2023-12-28] MEDS: atenoloL 25 MG TABLET PO (09:03)
[2023-12-28] MEDS: Multivitamin TABLET 1 TAB PO (09:03)
[2023-12-28] MEDS: Magnesium Oxide 400 MG TABLET PO (09:03)
[2023-12-28] MEDS: PHENobarbitaL 15 MG TABLET 45 MG PO ×2 (09:03→22:05)
[2023-12-28] MEDS: methocarbamoL 750 MG TABLET PO ×2 (09:03→22:05)
[2023-12-28] MEDS: Naltrexone HCl 50 MG TABLET PO (09:03)
--- NOTE | 2023-12-28 10:58 | HO.PM.IMPN ---
Subjective Subjective Date of Service: 12/28/23 Interval History: Complaining of persistent abdominal pain, tolerated clear liquid diet but feels fall denies nausea, vomiting today, no diarrhea, no fever, no chills, no other acute issues overnight. Denies alcohol withdrawal symptoms. Review of Systems All other system reviewed and negative. Physical Exam Vital Signs: Vital Signs: Last Vital Signs Temp 98.3 F 12/28/23 08:00 Pulse 75 12/28/23 08:00 Resp 20 12/28/23 08:00 BP 132/78 12/28/23 08:00 Pulse Ox 97 12/28/23 08:00 O2 Del Method Room Air 12/28/23 03:46 BMI result Body Mass Index 21.6 Const: Other: General awake alert x3 in no acute distress. Anicteric sclera Neck no JVD. CVS regular rate rhythm, Respiratory lungs clear to auscultation, no respiratory distress, no wheeze, no rhonchi. Gastrointestinal abdomen distended, persistent diffuse abdominal tenderness to palpation, bowel sounds audible, no guarding , no rigidity. Extremities no edema. Neuro non focal Skin no rash Appropriate affect Objective Data Active Medications Acetaminophen (Acetaminophen 325 Mg Tablet) 325 mg PO QID PRN PRN Reason: mPain Atenolol (Atenolol 25 Mg Tablet) 25 mg PO DAILY [facility]; Protocol Last Admin: 12/28/23 09:03 Dose: 25 mg Documented By: TAHIR Enoxaparin Sodium (Enoxaparin Sodium 40 Mg/0.4 Ml Syringe) 40 mg SUBCUT Q24H [facility] Last Admin: 12/27/23 20:42 Dose: 40 mg Documented By: ANDREA Famotidine (Famotidine/Pf 20 Mg/2 Ml Vial) 20 mg IVPUSH DAILY [facility] Last Admin: 12/28/23 09:02 Dose: 20 mg Documented By: TAHIR Gabapentin (Gabapentin 100 Mg Capsule) 100 mg PO TID [facility] Last Admin: 12/28/23 09:02 Dose: 100 mg Documented By: TAHIR Hydromorphone HCl (Hydromorphone Hcl 1 Mg/Ml Syringe) 1 mg IVPUSH Q3H PRN; Protocol PRN Reason: moderate pain Last Admin: 12/28/23 06:17 Dose: 1 mg Documented By: CADY Lactated Ringer's (Lr) 1,000 mls @ 150 mls/hr IVCONT .Q6H40M [facility] Last Admin: 12/28/23 09:02 Dose: 150 mls/hr Documented By: TAHIR Magnesium Oxide (Magnesium Oxide 400 Mg Tablet) 400 mg PO DAILY [facility] Last Admin: 12/28/23 09:03 Dose: 400 mg Documented By: TAHIR Methocarbamol (Methocarbamol 750 Mg Tablet) 750 mg PO BID [facility] Last Admin: 12/28/23 09:03 Dose: 750 mg Documented By: TAHIR Metoclopramide HCl (Metoclopramide Hcl 10 Mg/2 Ml Vial) 10 mg IVPUSH Q8H PRN PRN Reason: nasuea Last Admin: 12/28/23 06:17 Dose: 10 mg Documented By: CADY Multivitamins/Vitamin C (Multivitamin Tablet) 1 tab PO DAILY [facility] Last Admin: 12/28/23 09:03 Dose: 1 tab Documented By: TAHIR Naltrexone HCl (Naltrexone Hcl 50 Mg Tablet) 50 mg PO DAILY [facility] Last Admin: 12/28/23 09:03 Dose: 50 mg Documented By: TAHIR Nicotine (Nicotine 14 Mg Patch.Td24) 14 mg TRANSDERMA DAILY [facility] Last Admin: 12/28/23 09:02 Dose: 14 mg Documented By: TAHIR Omeprazole (Omeprazole 20 Mg Capsule.Dr) 20 mg PO DAILY@0630 [facility] Last Admin: 12/28/23 06:17 Dose: 20 mg Documented By: CADY Ondansetron HCl (Ondansetron Odt 4 Mg Tab.Rapdis) 4 mg TRANSLINGU Q8H PRN PRN Reason: nausea and vomiting Last Admin: 12/28/23 03:49 Dose: 4 mg Documented By: CADY Pharmacy Consult (Consult Rx Etoh Phenob Im/Po) 1 each MISCELLANE ONCE PRN; Protocol PRN Reason: Consult order Phenobarbital (Phenobarbital 15 Mg Tablet) 45 mg PO BID [facility]; Protocol Stop: 12/28/23 21:01 Last Admin: 12/28/23 09:03 Dose: 45 mg Documented By: TAHIR Phenobarbital (Phenobarbital 30 Mg Tablet) 30 mg PO BID [facility]; Protocol Stop: 12/30/23 21:01 Phenobarbital (Phenobarbital 30 Mg Tablet) 30 mg PO DAILY [facility]; Protocol Stop: 01/01/24 09:01 Trazodone HCl (Trazodone Hcl 100 Mg Tablet) 100 mg PO BEDTIME PRN PRN Reason: Sleep Labs 12/28/23 05:50 12/28/23 05:50 Labs: Laboratory Results - last 24 hr 12/27/23 12/28/23 18:03 05:50 MCV 97.8 MCH 32.8 MCHC 33.5 RDW 13.4 Plt Count 162 D MPV 11.5 Absolute Nucleated RBC 0.000 Nucleated RBC % (auto) 0.0 Anion Gap 9 L 12 Estim Creat Clear Calc 137.7 Estimated GFR > 60 Random Glucose 89 Calcium 8.6 Magnesium 1.8 Total Bilirubin 1.2 H Direct Bilirubin 0.5 AST 22 ALT 20 Alkaline Phosphatase 88 Total Protein 5.2 L Albumin 2.9 L Triglycerides 119 Assessment and Plan (1) Pancreatitis: Status: Acute (2) Alcohol use disorder: Status: Acute Plan 43M PMH etoh dependence, htn presented with abd pain Acute pancreatitis Due to alcohol , normal LFTs, normal triglyceride CT abdomen and pelvis showed significant inflammatory changes of pancreatic head and neck, and possible minimal choledocholithiasis MRI abdomen showed markedly edematous pancreatic head, to ill-defined fluid collection within pancreatic head which may reflect acute necrotic collection raising suspicion for possible necrotizing pancreatitis, no sudeep intra hepatic biliary ductal dilatation, no definite intraluminal filling defect to suggest choledocholithiasis noted, duodenal wall thickening and peritoneal inflammatory changes noted likely reactive the differential include duodenitis IV hydration, pain meds, clear liquids, will add ensure Clear Stable LFTs, renal function and electrolytes, WBC trending down,elevated lipase. Acute hypokalemia repleted and normalized Hypertension stable, Continue atenolol Alcohol dependence with withdrawal Continue phenobarbital, monitor [facility] Tobacco use disorder counseling done, on nicotine patch. DVT prophylaxis on Lovenox Full Code Patient with acute pancreatitis unable to tolerate p.o. requiring IV fluids and close monitoring of electrolytes, renal function, also with alcohol withdrawal requiring phenobarbital. Quality Stroke Does the patient have a stroke diagnosis?: No VTE Prior VTE?: No VTE Risk Level:: Medical - moderate - high VTE Device Contraindication: Treatment Not Indicated VTE Drug Contraindication: N/A - Med Ordered
--- NOTE | 2023-12-28 11:35 | MHC.CM.PN ---
Patient is not yet medically cleared for dc (attempting to advance diet); home is the goal and CM will continue to follow.
--- NOTE | 2023-12-28 11:38 | MHC.RECOVRN ---
AUDIT-C Brief Intervention Pt had positive screen for unhealthy alcohol use on admission, subsequently met with t/w to discuss alcohol use and recovery supports/options. Pt voices concern regarding alcohol use and is aware that drinking at unhealthy levels is known to increase risk of alcohol related health problems. Pt reports 4-5 shots daily. Pt reports this is reduced from 6-10 that he had been drinking. Pt expresses how alcohol use has impacted health, including negative impact on physical health and resulting pancreatitis. Discussed risk reduction strategies including drinking below the recommended limit. Provided pt with written resources including information on inpatient and outpatient treatment, harm reduction, and recovery coaching. Pt currently is a patient of the [facility] and is prescribed naltrexone. Pt plans to follow up with the [facility] on 01/17. Pt provided with t/w contact information if questions or concerns arise. Denies other questions or concerns at this time.
[2023-12-28] MEDS: Enoxaparin Sodium 40 MG/0.4 ML SYRINGE SUBCUT (22:06)
[2023-12-29] MEDS: Lactated Ringers 1,000 ML 150 ML IVCONT ×2 (01:02→07:53)
[2023-12-29 03:27] VITALS: BP 121/68; PULSE 59; RESP 18; TEMP 36.7; O2SAT 97
[2023-12-29] MEDS: Omeprazole 20 MG CAPSULE.DR PO (06:07)
[2023-12-29 07:11] LABS: Hematocrit 33.5 % (42.0-52.0); Hemoglobin 12.7 g/dl (14.0-18.0); Mean Corpuscular Hemoglobin 37.1 pg (27.0-33.0); Mean Platelet Volume 11.9 fL (9.4-12.4); Red Blood Count 3.42 X10*6/uL (4.60-5.80); Red Cell Distribution Width 13.2 % (11.0-16.0); White Blood Count 7.3 X10*3/uL (4.8-10.8)
[2023-12-29 07:15] LABS: Blood Urea Nitrogen < 3 mg/dL (9-16); Calcium 8.4 mg/dL (8.4-10.2); Creatinine Clr Calc Pharmacy 149.5; Estimated Glomerular Filt Rate > 60; Glucose Random 92 mg/dL (60-115); Lipase 73 U/L (8-78); Magnesium 1.7 mg/dL (1.6-2.6)
[2023-12-29 07:17] VITALS: BP 151/86; PULSE 60; RESP 18; TEMP 36.4; O2SAT 98
[2023-12-29 07:34] LABS: Mean Corpuscular HGB Conc 37.9 g/dl (31.0-36.0)
[2023-12-29 07:35] LABS: Platelet Count 145 X10*3/uL (160-400)
[2023-12-29 07:37] LABS: Anion Gap 9 (12-20); Carbon Dioxide 29 mmol/L (22-29); Chloride 103 mmol/L (96-108); Potassium 2.9 mmol/L (3.3-5.1); Sodium 138 mmol/L (135-145)
[2023-12-29] MEDS: Gabapentin 100 MG CAPSULE PO ×3 (07:54→20:24)
[2023-12-29] MEDS: Magnesium Oxide 400 MG TABLET PO (07:54)
[2023-12-29] MEDS: Multivitamin TABLET 1 TAB PO (07:54)
[2023-12-29] MEDS: Nicotine 14 MG PATCH.TD24 TRANSDERMA (07:54)
[2023-12-29] MEDS: Naltrexone HCl 50 MG TABLET PO (07:54)
[2023-12-29 07:55] VITALS: BP 151/86; PULSE 60
[2023-12-29] MEDS: methocarbamoL 750 MG TABLET PO ×2 (07:55→20:25)
[2023-12-29] MEDS: PHENobarbitaL 30 MG TABLET PO ×2 (07:55→20:24)
[2023-12-29] MEDS: atenoloL 25 MG TABLET PO (07:55)
[2023-12-29] MEDS: Famotidine/PF 20 MG/2 ML VIAL IVPUSH (07:55)
[2023-12-29 08:24] LABS: Phosphorus 2.6 mg/dL (2.7-4.5)
[2023-12-29] MEDS: Potassium Chloride ER 20 MEQ TAB.ER.PRT 40 MEQ PO (09:37)
[2023-12-29] MEDS: KCl 20 mEq in 5 % Dex/Lact Rin 20 MEQ/1,000 ML IV.SOLN 125 MEQ IVCONT (09:38)
[2023-12-29 11:02] VITALS: BP 162/80; PULSE 65; RESP 18; TEMP 36.7; O2SAT 100
--- NOTE | 2023-12-29 13:09 | P.PNIM_ITS ---
Subjective Subjective Date of Service: 12/29/23 Interval History: Being followed for acute pancreatitis Feeling significantly better, denies abdominal pain tolerated clear liquid diet with no worsening symptoms, no bloating, no diarrhea, no nausea, no vomiting, no fevers, no chills, no acute issues overnight. Review of Systems All other system reviewed and are negative. Physical Exam 2 Vital Signs: Vital Signs: Last Vital Signs Temp 98.0 F 12/29/23 11:02 Pulse 65 12/29/23 11:02 Resp 18 12/29/23 11:02 BP 162/80 H 12/29/23 11:02 Pulse Ox 100 12/29/23 11:02 O2 Del Method Room Air 12/29/23 11:02 BMI result Body Mass Index 21.6 Const: Other: General awake alert x3 in no acute distress. Anicteric sclera Neck no JVD. CVS regular rate rhythm, Respiratory lungs clear to auscultation, no respiratory distress, no wheeze, no rhonchi. Gastrointestinal abdomen distended, nontender, bowel sounds audible, no guarding , no rigidity. Extremities no edema. Neuro non focal Skin no rash Appropriate affect Objective Data Active Medications Acetaminophen (Acetaminophen 325 Mg Tablet) 325 mg PO QID PRN PRN Reason: mPain Atenolol (Atenolol 25 Mg Tablet) 25 mg PO DAILY [facility]; Protocol Last Admin: 12/29/23 07:55 Dose: 25 mg Documented By: RAFAELA Enoxaparin Sodium (Enoxaparin Sodium 40 Mg/0.4 Ml Syringe) 40 mg SUBCUT Q24H [facility] Last Admin: 12/28/23 22:06 Dose: 40 mg Documented By: CADY Famotidine (Famotidine/Pf 20 Mg/2 Ml Vial) 20 mg IVPUSH DAILY [facility] Last Admin: 12/29/23 07:55 Dose: 20 mg Documented By: RAFAELA Gabapentin (Gabapentin 100 Mg Capsule) 100 mg PO TID [facility] Last Admin: 12/29/23 07:54 Dose: 100 mg Documented By: RAFAELA Hydromorphone HCl (Hydromorphone Hcl 1 Mg/Ml Syringe) 1 mg IVPUSH Q3H PRN; Protocol PRN Reason: Pain, Severe (Pain Scale 7-10) Potassium Cl/Dextrose/Lact Ringer's (Kcl 20 Meq In 5 % Dex/Lact Rin) 20 meq in 1,000 mls @ 100 mls/hr IVCONT .Q10H [facility] Last Admin: 12/29/23 09:38 Dose: 125 mls/hr Documented By: RAFAELA Magnesium Oxide (Magnesium Oxide 400 Mg Tablet) 400 mg PO DAILY [facility] Last Admin: 12/29/23 07:54 Dose: 400 mg Documented By: RAFAELA Methocarbamol (Methocarbamol 750 Mg Tablet) 750 mg PO BID [facility] Last Admin: 12/29/23 07:55 Dose: 750 mg Documented By: RAFAELA Metoclopramide HCl (Metoclopramide Hcl 10 Mg/2 Ml Vial) 10 mg IVPUSH Q8H PRN PRN Reason: nasuea Last Admin: 12/28/23 22:12 Dose: 10 mg Documented By: CADY Multivitamins/Vitamin C (Multivitamin Tablet) 1 tab PO DAILY [facility] Last Admin: 12/29/23 07:54 Dose: 1 tab Documented By: RAFAELA Naltrexone HCl (Naltrexone Hcl 50 Mg Tablet) 50 mg PO DAILY [facility] Last Admin: 12/29/23 07:54 Dose: 50 mg Documented By: RAFAELA Nicotine (Nicotine 14 Mg Patch.Td24) 14 mg TRANSDERMA DAILY [facility] Last Admin: 12/29/23 07:54 Dose: 14 mg Documented By: RAFAELA Omeprazole (Omeprazole 20 Mg Capsule.Dr) 20 mg PO DAILY@0630 [facility] Last Admin: 12/29/23 06:07 Dose: 20 mg Documented By: CADY Ondansetron HCl (Ondansetron Odt 4 Mg Tab.Rapdis) 4 mg TRANSLINGU Q8H PRN PRN Reason: nausea and vomiting Last Admin: 12/28/23 03:49 Dose: 4 mg Documented By: CADY Pharmacy Consult (Consult Rx Etoh Phenob Im/Po) 1 each MISCELLANE ONCE PRN; Protocol PRN Reason: Consult order Phenobarbital (Phenobarbital 30 Mg Tablet) 30 mg PO BID [facility]; Protocol Stop: 12/30/23 21:01 Last Admin: 12/29/23 07:55 Dose: 30 mg Documented By: RAFAELA Phenobarbital (Phenobarbital 30 Mg Tablet) 30 mg PO DAILY [facility]; Protocol Stop: 01/01/24 09:01 Trazodone HCl (Trazodone Hcl 100 Mg Tablet) 100 mg PO BEDTIME PRN PRN Reason: Sleep Labs 12/29/23 06:19 12/29/23 06:19 Labs: Laboratory Results - last 24 hr 12/29/23 06:19 MCV 98.0 MCH 37.1 H MCHC 37.9 H RDW 13.2 Plt Count 145 L MPV 11.9 Absolute Nucleated RBC 0.000 Nucleated RBC % (auto) 0.0 Anion Gap 9 L Estim Creat Clear Calc 149.5 Estimated GFR > 60 Random Glucose 92 Calcium 8.4 Phosphorus 2.6 L Magnesium 1.7 Lipase 73 Assessment and Plan (1) Pancreatitis: Status: Acute (2) Alcohol use disorder: Status: Acute Plan 43M PMH etoh dependence, htn presented with abd pain Acute pancreatitis with possible necrotizing pancreatitis. Due to alcohol , normal LFTs, normal triglyceride CT abdomen and pelvis showed significant inflammatory changes of pancreatic head and neck, and possible minimal choledocholithiasis MRI abdomen showed markedly edematous pancreatic head, to ill-defined fluid collection within pancreatic head which may reflect acute necrotic collection raising suspicion for possible necrotizing pancreatitis, no sudeep intra hepatic biliary ductal dilatation, no definite intraluminal filling defect to suggest choledocholithiasis noted, duodenal wall thickening and peritoneal inflammatory changes noted likely reactive the differential include duodenitis Abdominal pain improved Decreased IV hydration, pain meds, advance diet to full liquid, ensure Clear Stable LFTs, renal function and electrolytes, WBC and lipase normalized. Acute hypokalemia will replete and follow labs Mild acute hypophosphatemia will replete Hypertension stable, Continue atenolol Alcohol dependence with withdrawal Continue phenobarbital, monitor [facility] Tobacco use disorder counseling done, on nicotine patch. DVT prophylaxis on Lovenox Full Code Patient with acute pancreatitis requiring IV fluids and close monitoring of electrolytes, renal function, also with alcohol withdrawal requiring phenobarbital. Quality Stroke Does the patient have a stroke diagnosis?: No VTE Prior VTE?: No VTE Risk Level:: Medical - moderate - high VTE Device Contraindication: Treatment Not Indicated VTE Drug Contraindication: N/A - Med Ordered
[2023-12-29] MEDS: Sodium,Potassium Phosphates POWD.PACK 1 PACKET PO (15:18)
[2023-12-29 16:00] VITALS: BP 152/86; PULSE 74; RESP 18; TEMP 36.6; O2SAT 99
[2023-12-29 19:53] VITALS: BP 158/70; PULSE 60; RESP 16; TEMP 36.2; O2SAT 100
[2023-12-29] MEDS: Enoxaparin Sodium 40 MG/0.4 ML SYRINGE SUBCUT (20:25)
[2023-12-29] MEDS: KCl 20 mEq in 5 % Dex/Lact Rin 20 MEQ/1,000 ML IV.SOLN 100 MEQ IVCONT (20:25)
[2023-12-29] MEDS: traZODone HCL 100 MG TABLET PO (22:54)
[2023-12-30] VITALS: BP 151/91; PULSE 51; RESP 16; TEMP 36.6; O2SAT 100
[2023-12-30 04:00] VITALS: BP 132/85; PULSE 60; RESP 18; TEMP 37.7; O2SAT 96
[2023-12-30] MEDS: KCl 20 mEq in 5 % Dex/Lact Rin 20 MEQ/1,000 ML IV.SOLN 100 MEQ IVCONT (05:56)
[2023-12-30] MEDS: Omeprazole 20 MG CAPSULE.DR PO (05:56)
[2023-12-30 07:04] LABS: Anion Gap 11 (12-20); Blood Urea Nitrogen < 3 mg/dL (9-16); Calcium 8.9 mg/dL (8.4-10.2); Carbon Dioxide 30 mmol/L (22-29); Chloride 101 mmol/L (96-108); Creatinine Clr Calc Pharmacy 142.2; Estimated Glomerular Filt Rate > 60; Glucose Random 119 mg/dL (60-115); Phosphorus 2.6 mg/dL (2.7-4.5); Potassium 3.5 mmol/L (3.3-5.1); Sodium 138 mmol/L (135-145)
[2023-12-30 07:20] VITALS: BP 160/84; PULSE 57; RESP 18; TEMP 36.8; O2SAT 97
[2023-12-30] MEDS: Gabapentin 100 MG CAPSULE PO ×2 (08:26→14:15)
[2023-12-30] MEDS: PHENobarbitaL 30 MG TABLET PO (08:26)
[2023-12-30] MEDS: atenoloL 25 MG TABLET PO (08:26)
[2023-12-30] MEDS: Magnesium Oxide 400 MG TABLET PO (08:26)
[2023-12-30] MEDS: Famotidine/PF 20 MG/2 ML VIAL IVPUSH (08:26)
[2023-12-30] MEDS: methocarbamoL 750 MG TABLET PO (08:26)
[2023-12-30] MEDS: Multivitamin TABLET 1 TAB PO (08:26)
[2023-12-30] MEDS: Nicotine 14 MG PATCH.TD24 TRANSDERMA (08:26)
[2023-12-30] MEDS: Naltrexone HCl 50 MG TABLET PO (08:26)
[2023-12-30] MEDS: Sodium,Potassium Phosphates POWD.PACK 1 PACKET PO (09:08)
[2023-12-30] MEDS: Potassium Chloride ER 20 MEQ TAB.ER.PRT PO (09:08)
[2023-12-30 11:03] VITALS: BP 156/92; PULSE 63; RESP 18; TEMP 36.4; O2SAT 99
--- NOTE | 2023-12-30 12:56 | PM.DS ---
DS: Providers Provider Date of Service: 12/30/23 Date of admission: 12/26/23 20:16 Date of discharge: 12/30/23 Primary care physician: Otoniel Rockwell MD Consults: 12/26/23 20:14 Consult to Gastroenterology Routine Consulting Provider: Vince Kaur Reason for consultation: pancreatitis, eoth +/- gallstone 12/28/23 10:15 Addiction Medicine Routine Consulting Provider: Addiction Covering Reason for consultation: etoh Has provider been notified: No DS: Diagnosis Discharge Diagnosis (1) Pancreatitis: Status: Acute (2) Alcohol use disorder: Status: Acute DS: Summary Hospital Course Hospital Course: Date of Service: 12/26/23 Chief Complaint: abd pain 43M PMH etoh dependence, htn presented with abd pain. Patient reports several days of epigastric abdominal pain radiating to back associated with nausea vomiting and bile emesis. Denies fever, chills. Nausea vomiting has worsened over the last 24 hours has been unable to tolerate any p.o.. Last alcoholic drink was early a.m. prior to presentation. In ED CT abdomen significant for acute pancreatitis and possible punctate calculus within the distal intrapancreatic segment of the CBD. Hospital course: 43M PMH etoh dependence, htn presented with abd pain ,nausea,vomiting, and admitted with a diagnosis of Acute pancreatitis ,possible necrotizing pancreatitis,due to alcohol , had normal LFTs, and triglyceride CT abdomen and pelvis showed significant inflammatory changes of pancreatic head and neck, and possible minimal choledocholithiasis, MRI abdomen showed markedly edematous pancreatic head, ill-defined fluid collection within pancreatic head which may reflect acute necrotic collection raising suspicion for possible necrotizing pancreatitis, no sudeep intra hepatic biliary ductal dilatation, no definite intraluminal filling defect to suggest choledocholithiasis noted, duodenal wall thickening and peritoneal inflammatory changes noted likely reactive , patient treated with aggressive IV hydration, IV analgesics, antiemetics, electrolytes and renal function were closely monitored, hypokalemia resolved, noted to have mild low phosphorous repleted, diet gradually advanced currently tolerating regular diet, abdominal pain resolved lipase normalized strongly recommended to abstain from alcohol in regard to alcohol dependence and withdrawal patient treated with phenobarb protocol Hypertension stable, Continue atenolol Tobacco use disorder counseling done,continue nicotine patch. Time Attestation Discharge Coordination Time (in mins): 35 Quality: Safe Use of Opioids Does Pt have an Active Cancer Diagnosis on the Problem List?: No Quality: Stroke Does the patient have a stroke diagnosis?: No Physical Exam Vital Signs: Vital Signs: Last Vital Signs Temp 97.6 F 12/30/23 11:03 Pulse 63 12/30/23 11:03 Resp 18 12/30/23 11:03 BP 156/92 H 12/30/23 11:03 Pulse Ox 99 12/30/23 11:03 O2 Del Method Room Air 12/30/23 11:03 BMI result Body Mass Index 21.6 Const: Other: General awake alert x3 in no acute distress. Anicteric sclera Neck no JVD. CVS regular rate rhythm, Respiratory lungs clear to auscultation, no respiratory distress, no wheeze, no rhonchi. Gastrointestinal abdomen distended, non tender, bowel sounds audible, no guarding , no rigidity. Extremities no edema. Neuro non focal Skin no rash Appropriate affect DS: Data Data Completed and Pending Completed studies during hospitalization [Text1]: Procedures Detoxification Services for Substance Abuse Treatment (10/10/22) Drainage of Peritoneal Cavity, Percutaneous Approach (10/10/22) Labs on day of discharge: Laboratory Results - last 24 hr 12/30/23 06:18 Hold Purple Top SEE NOTE Sodium 138 Potassium 3.5 D Chloride 101 Carbon Dioxide 30 H Anion Gap 11 L BUN < 3 L Creatinine 0.61 Estim Creat Clear Calc 142.2 Estimated GFR > 60 Random Glucose 119 H Calcium 8.9 Phosphorus 2.6 L Discharge Plan Discharge Anticipated Discharge Date/Time: 12/30/23 13:03 Patient Disposition: Home, Self-Care Discharge Diagnosis: Acute alcoholic pancreatitis Referrals: Otoniel Rockwell MD [Primary Care Provider] - 1 Week Discharge Medications: Continued multivitamin Tablet 1 tab PO DAILY atenolol 50 mg tablet 25 mg PO DAILY lorazepam 0.5 mg tablet 0.5 mg PO BID PRN (Reason: Anxiety) nicotine 21 mg/24 hr patch 24 hour 21 mg topical DAILY omeprazole 20 mg capsule,delayed release(DR/EC) 20 mg PO DAILY@0630 magnesium oxide 400 mg magnesium Capsule 400 mg PO DAILY trazodone 50 mg tablet 100 mg PO BEDTIME PRN (Reason: Sleep) methocarbamol 750 mg tablet 750 mg PO BID naltrexone 50 mg tablet 50 mg PO DAILY acetaminophen [Tylenol] 325 mg capsule 325 mg PO QID PRN (Reason: Pain) ondansetron 4 mg tablet,disintegrating 4 mg PO Q8H PRN (Reason: nausea and vomiting) Qty: 30 0RF gabapentin 100 mg capsule 100 mg PO TID Qty: 90 0RF sucralfate 1 gram tablet 1 g PO BID Qty: 90 0RF Discontinued potassium chloride 10 mEq tablet extended release 10 meq PO DAILY Discharge Orders: Discharge Order (Routine); Ordered 12/30/23 Ordered By: Michelle Rosen Diet: Low fat, low cholesterol Activity on Discharge: As tolerated Stand Alone Forms: Patient Portal Discharge page Print Language: Hungarian Care Plan Goals: Continue low-fat diet and complete abstinence from alcohol Health Concerns: Hypertension continue home medication Tobacco use disorder continue nicotine Plan of Treatment: Outpatient follow-up with primary care physician call for appointment Assessment: As above
--- NOTE | 2023-12-30 13:09 | MHC.CM.PN ---
Pt has been medically cleared for DC, he will go home via family transport, plan is self care.
--- NOTE | 2024-01-14 05:15 | PC.NURSE ---
Late Entry for 12/27/23 0620 Pt medicated per JUL for 01/28 pain. Pt had requested dilaudid as he informed staff that this was the only medication that worked for him before.
== END 2023-12-30 14:41 | disposition home or self-care (01) | DRG 282 ==
LOC: HO.ED 16:55 → HO.EDOVER 20:19 → HO.IMC 12-27 21:14
PROVIDERS: Internal Medicine Gastroenterology; Nurse Practitioner Family; Physician Assistant; Admitting Provider Internal Medicine; Emergency Provider Student in an Organized Health Care Education/Training Program; PCP Internal Medicine; Visit Provider Hospitalist
DX: K85.21 Alcohol induced acute pancreatitis with uninfected necrosis (principal); E83.39 Other disorders of phosphorus metabolism; E87.6 Hypokalemia; F10.239 Alcohol dependence with withdrawal, unspecified; F17.210 Nicotine dependence, cigarettes, uncomplicated; Z71.41 Alcohol abuse counseling and surveillance of alcoholic; Z71.6 Tobacco abuse counseling; Z79.899 Other long term (current) drug therapy
CPT/HCPCS: 36415; 71045; 74177; 74181; 80048; 80051; 80076; 80307; 81001; 81003; 83690; 83735; 84100; 84478; 84484; 85025; 85027; 93005; 99285; J1170; J1650; J2270; J2405; J2560; J2765; J3475; J3480; J7120; Q9967

== ENCOUNTER → 2023-12-26 15:03 | Outpatient (BNV) | payer OTHER, SELFPAY | PROVIDERS: Admitting Provider Internal Medicine; Emergency Provider Student in an Organized Health Care Education/Training Program; PCP Internal Medicine; Visit Provider Internal Medicine Cardiovascular Disease | DX: R07.9 Chest pain, unspecified (principal) | CPT/HCPCS: 93010 ==

== ENCOUNTER → 2023-12-26 20:16 | Outpatient (BNV) | payer OTHER, SELFPAY | PROVIDERS: Admitting Provider Internal Medicine; Emergency Provider Student in an Organized Health Care Education/Training Program; PCP Internal Medicine; Visit Provider Internal Medicine | DX: K85.90 Acute pancreatitis without necrosis or infection, unspecified (principal); F10.90 Alcohol use, unspecified, uncomplicated | CPT/HCPCS: 99223; 99232; 99233; 99239 ==

== ENCOUNTER 2024-01-02 11:44 | Emergency (ER) | payer OTHER, SELFPAY ==
[2024-01-02] VITALS (7 sets, daily range): BP systolic 123–148; BP diastolic 81–92; PULSE 83–128; RESP 16–19; TEMP 36.6–37.2; O2SAT 96–99; BMI 21.1
--- NOTE | ~2024-01-02 | MR_ITS ---
EXAMINATION: MR ABDOMEN WITHOUT AND WITH CONTRAST CLINICAL INFORMATION: Pancreatitis. COMPARISON: CT abdomen/pelvis 01/02/2024 MRI/MRCP 12/26/2023 TECHNIQUE: MR abdomen was performed without and with use of 6 mL intravenous Gadavist gadolinium contrast. Postcontrast images are performed in multiphase dynamic sequences. Imaging was performed in 3 planes. MRCP was also performed. FINDINGS: LUNG BASES: No pleural or pericardial effusion. LIVER, GALLBLADDER, AND BILIARY TREE: The liver is enlarged. Hepatic steatosis. No suspicious hepatic lesion. The common duct measures 9 mm at the katarzyna hepatis. Mild central intrahepatic biliary ductal dilatation. No intraductal filling defect. The gallbladder is distended. PANCREAS: Diffusely edematous with peripancreatic stranding. The proximal pancreatic duct is dilated up to 1.1 cm follicle with debris. The main pancreatic duct is diffusely tortuous an irregular with sidebranch dilatation. There is heterogeneous precontrast signal and postcontrast enhancement with scattered areas of necrosis in the head of the pancreas. There are tiny peripancreatic rim-enhancing fluid collections near the tail the pancreas. Retroperitoneal and mesenteric stranding and edema. There is fluid in the anterior pararenal spaces. Small ascites in the abdomen. SPLEEN: Not enlarged. ADRENAL GLANDS: No adrenal mass. KIDNEYS AND URETERS: The kidneys are symmetric in size and enhancement. No hydronephrosis. No perinephric stranding. GASTROINTESTINAL TRACT: Wall thickening of the duodenum likely on a reactive basis. LYMPH NODES: Subcentimeter mesenteric and retroperitoneal lymph nodes are nonspecific. A peripancreatic lymph node measures 0.9 x 1.5 cm. VASCULAR: Normal caliber abdominal aorta. MR/MR abdomen wo/w con IMPRESSION: Diffusely edematous with marked peripancreatic stranding and phlegmon. The proximal pancreatic duct is dilated up to 1.1 cm filled with debris. The main pancreatic duct is diffusely tortuous and irregular with sidebranch dilatation. Severe edema in the head of the pancreas causes narrowing of the distal common duct resulting in biliary ductal dilatation and gallbladder distention. Heterogeneous precontrast signal and postcontrast enhancement with scattered areas of necrosis in the head of the pancreas. There are tiny peripancreatic rim-enhancing fluid collections near the tail the pancreas.
--- NOTE | ~2024-01-02 | CT_ITS ---
EXAMINATION: CT ABDOMEN AND PELVIS WITH CONTRAST CLINICAL INFORMATION: Left upper quadrant pain. Evaluate for pancreatitis. COMPARISON: CT abdomen and pelvis 12/26/2023, MRCP 12/26/2023 TECHNIQUE: Multidetector volumetric images were obtained from the superior aspect of the liver through the pubic symphysis following administration 85 mL of Omnipaque 350 intravenous contrast. Sagittal and coronal reformatted images were obtained on the technologist's workstation. Oral contrast: No This CT examination was performed using dose optimization techniques as appropriate, variously including the following: *Automated exposure control *Adjustment of mA and/or kV according to patient size (this includes techniques or standardized protocols for targeted exams where dose is matched to indication/reason for exam; i.e. extremities or head) *Use of iterative reconstruction technique DLP: 337 mGy-cm FINDINGS: LUNG BASES: The visualized lung bases are unremarkable. LIVER, GALLBLADDER, AND BILIARY TREE: The liver is normal in size, shape, and attenuation. No focal hepatic lesion or biliary ductal dilatation is present. The gallbladder is unremarkable with no evidence of radiopaque gallstones, gallbladder wall thickening, or obvious pericholecystic inflammatory changes. PANCREAS: Inflammatory changes surrounding the entire pancreas. Fluid collections are seen within and adjacent to the pancreatic head and neck, similar in size to prior exam. SPLEEN: Unremarkable. ADRENAL GLANDS: Unremarkable. KIDNEYS AND URETERS: The kidneys are normal in size, shape, and attenuation. No hydronephrosis, hydroureter, or calculi seen. No perinephric stranding. BLADDER: Unremarkable. GASTROINTESTINAL TRACT: Inflammatory changes surrounding the second third portions of the duodenum. Moderate colonic diverticulosis. ABDOMINAL WALL: No significant hernia is appreciated. LYMPH NODES: Prominent peripancreatic and mesenteric lymph nodes VASCULAR: Incidentally noted replaced common hepatic artery arising from the SMA. PELVIC VISCERA: Unremarkable. OSSEOUS STRUCTURES: Unremarkable. CT/CT abdomen pelvis w IV con IMPRESSION: Similar appearance of peripancreatic inflammatory changes. Unchanged fluid collections within and adjacent to the pancreatic head and neck. No new fluid collections identified. Fleischner guidelines were followed.
--- NOTE | 2024-01-02 11:55 | ED_ITS ---
HPI - Abdominal Pain General Chief Complaint: Abdominal Pain Stated Complaint: stomach pain, vomiting Time Seen by Provider: 01/02/24 11:55 Source: patient Mode of arrival: ambulatory Limitations: no limitations History of Present Illness ED Provider: Arcadio COON HPI narrative: 43-year-old male history of pancreatitis, alcohol use disorder, ascites presents to the emergency department with diffuse abdominal pain nausea, vomiting and feeling unwell, patient reports he was discharged from this facility on Sunday where he was told he had pancreatitis, he was daily drinker reports 5 alcoholic mixed drinks a day, last drink was prior to hospital admission last time, he reports he has been taking naltrexone ever since. He reports pain is severe 02/27. It appears very uncomfortable upon history taking. Denies cp, sob, headache, vision changes, dizziness, weakness. Related Data Home Medications ?Medication ?Instructions ?Recorded ?Confirmed atenolol 50 mg tablet 25 mg PO DAILY 10/10/22 01/02/24 multivitamin 1 tab PO DAILY 10/10/22 01/02/24 acetaminophen 325 mg capsule 325 mg PO QID PRN Pain 09/10/23 01/02/24 (Tylenol) methocarbamol 750 mg tablet 750 mg PO BID 09/10/23 01/02/24 naltrexone 50 mg tablet 50 mg PO DAILY 09/10/23 01/02/24 trazodone 50 mg tablet 100 mg PO BEDTIME PRN Sleep 09/10/23 01/02/24 lorazepam 0.5 mg tablet 0.5 mg PO BID PRN Anxiety 12/26/23 01/02/24 magnesium oxide 400 mg PO DAILY 12/26/23 01/02/24 nicotine 21 mg/24 hr daily 21 mg topical DAILY 12/26/23 01/02/24 transdermal patch omeprazole 20 mg capsule,delayed 20 mg PO DAILY@0630 12/26/23 01/02/24 release Previous Rx's ?Medication ?Instructions ?Recorded ondansetron 4 mg disintegrating 4 mg PO Q8H PRN nausea and 09/11/23 tablet vomiting #30 tabs gabapentin 100 mg capsule 100 mg PO TID #90 caps 10/16/23 sucralfate 1 gram tablet 1 g PO BID #90 tabs 10/30/23 Allergies Allergy/AdvReac Type Severity Reaction Status Date / Time No Known Allergies Allergy Verified 01/02/24 11:53 Review of Systems Review of Systems Yes all other systems are reviewed and are negative [facility] Past Medical History Attestation statement: The following information was validated with the patient. Source: old records reviewed and nursing notes reviewed Medical History Cigarette smoker Anxiety Hypertension Alcohol use disorder Family History Family History Father COPD (chronic obstructive pulmonary disease) Maternal Grandmother [place] (myocardial infarction) Social History Social History Household Members: Family Housing: House Do you presently have visiting nurse or other home services: No Alcohol intake: former Patient Tobacco Use Status: Current everyday Tobacco user Tobacco use type: Cigarette Cigarette Packs Per Day: 0.5 Cigarettes Per Day: 10.0 Years Smoked: 25 Smoked in Last 30 Days: Yes e-Cigarette/Vaping Use: Never Used Second Hand Smoke Exposure: Yes Use of substances other than those prescribed or required for medical reasons: Yes Substance Use Type: Marijuana Advance Directives: No Advance Directives Information Provided: No service: No Current occupational status: employed Physical Exam ED Vital Signs: Vital Signs - 24 hr 01/02/24 11:51 01/02/24 12:24 01/02/24 14:02 Temperature 98 F Pulse Rate 128 H Respiratory Rate 19 18 18 Blood Pressure 123/81 Pulse Oximetry 99 Oxygen Delivery Method Room Air 01/02/24 14:04 01/02/24 17:40 Temperature 97.8 F 98.9 F Pulse Rate 83 88 Respiratory Rate 16 16 Blood Pressure 127/82 143/92 H Pulse Oximetry 99 96 Oxygen Delivery Method Room Air Room Air BMI result Body Mass Index 21.1 vss Appearance: Alert.? Oriented X3.? No acute distress.? Head: Normocephalic, atraumatic, no step-offs or deformities Eyes: Pupils equal, round and reactive to light.? CVS: Normal heart rate and rhythm.? Pulses normal.? Respiratory: No respiratory distress.? Breath sounds normal.? Abdomen: Soft and diffuse abdominal discomfort w/ some rebound.? Skin: Skin warm and dry.? Normal skin color.? Normal skin turgor.? + L flank region w/ ecchymosis ( old per patient from [facility]) Extremities: No lower extremity edema.? No calf ttp. 5/5 strength to bilateral upper and lower extremities Neuro: Oriented X 3.? No motor deficit.? No sensory deficit. CN 2-12 intact Course Reevaluation(s) Reevaluation #1: CBC with leukocytosis and neutrophil predominance 77.8%, chemistry with no acute findings needing intervention. Normal lactic acid. Patient's lipase is significantly high 894. I did review patient's previous now and there was mentioned in an MRCP that patient had a probable necrotizing pancreatitis due to his presentation and physical exam I do have some suspicion for this. For this reason I did cover him with Zosyn. Time: 12:57 Reevaluation #2: CT abdomen and pelvis essentially unchanged from previous CT abdomen and pelvis with contrast he has a similar appearance of the peripancreatic inflammatory changes, unchanged fluid collections within and adjacent to the pancreatic head and neck. No new fluid collections identified. Patient did request more pain medicine due to uncontrolled pain, another mg of Dilaudid ordered. Patient is still uncomfortable with palpation and uncomfortable with no palpation. I did discuss this case with GI Dr. Meyers who recommends transferring this patient to another facility as he may need further intervention that can not be offered here at this hospital. I will try to arrange transport will call [facility] for higher level of care. Time: 14:37 Reevaluation #3: [facility] reports that they would not be able to provide any higher level of care and or any further procedures at this time. They did review CT from today. They recommend keeping patient here in if things worsen to transfer. However at this time no need for transfer. Time: 17:50 Additional Reevaluation(s): Discussed this patient with surgery Dr. Chacko who recommends transfering patient out as we dont have the capability to keep this patient in house. 1925 Called [facility] transferline. 1951 [facility] patient has been accepted. Medical Decision Making Medical Decision Making [facility] Narrative: 43 yo m presents w/ abd pain, nausea, vomiting and feeling overall unwell. Was d/c from this facility on sunday and comes back w/ similar sx PE Soft and diffuse abdominal discomfort w/ some rebound.?Skin warm and dry.? Normal skin color.? Normal skin turgor.? + L flank region w/ ecchymosis ( old per patient from [facility]) HX and pe concerning for pancreatitis vs MRCP induced pancreatritis vs cholecystitis. Less likely appendicitis, cholangitis, choledocholithiasis, obstruction, diverticulitis. Alcoholic hepatitis possible Plan labs, imaging, urine, ethanol. Differential Diagnosis Differential Diagnoses: The differential diagnosis associated with the presentation includes HX and pe concerning for pancreatitis vs MRCP induced pancreatritis vs cholecystitis. Less likely appendicitis, cholangitis, choledocholithiasis, obstruction, diverticulitis. Alcoholic hepatitis possible Admission/Observation Consideration of admission/observation: Escalation of care including admission/observation considered Consult Healthcare Provider Management of the patient was discussed with: Hospitalist Lab Data MDM Lab Attestation statement: I reviewed the patient's lab results. 01/02/24 12:17 01/02/24 12:17 Labs: Lab Results 01/02/24 01/02/24 01/02/24 Range/Units 12:17 12:27 13:13 WBC 14.3 H (4.8-10.8) X10*3/uL RBC 4.69 D (4.60-5.80) X10*6/uL Hgb 17.3 D (14.0-18.0) g/dl Hct 46.2 D (42.0-52.0) % MCV 98.5 H (80.0-98.0) fL MCH 36.9 H (27.0-33.0) pg MCHC 37.4 H (31.0-36.0) g/dl RDW 13.2 (11.0-16.0) % Plt Count 294 D (160-400) X10*3/uL MPV 12.4 (9.4-12.4) fL Immature Gran % (Auto) 0.4 (0.0-0.4) % Neut % (Auto) 77.8 H (45-73) % Lymph % (Auto) 13.5 L (20-40) % [place] % (Auto) 7.3 (2-11) % Eos % (Auto) 0.4 (0-4) % Baso % (Auto) 0.6 (0-2) % Lymph # (Auto) 1.9 (1.2-4.9) X10*3/uL [place] # (Auto) 1.0 (0.1-1.2) X10*3/uL Eos # (Auto) 0.1 (0.0-0.4) X10*3/uL Baso # (Auto) 0.1 (0.0-0.2) X10*3/uL Abs Immat Gran (auto) 0.06 H (0.00-0.03) X10*3/uL Absolute Neuts (auto) 11.1 H (2.0-8.3) x10*3/uL Absolute Nucleated RBC 0.000 (0.0-0.012) X10*3/uL Nucleated RBC % (auto) 0.0 (0.0-0.2) /100WBC ESR 8 (0-15) MM/HR Sodium 138 (135-145) mmol/L Potassium 3.6 (3.3-5.1) mmol/L Chloride 101 (96-108) mmol/L Carbon Dioxide 23 (22-29) mmol/L Anion Gap 18 (12-20) BUN 7 L (9-16) mg/dL Creatinine 0.68 (0.5-1.4) mg/dL Estim Creat Clear Calc 124.8 Estimated GFR > 60 Random Glucose 111 (60-115) mg/dL Lactic Acid 1.2 (0.5-2.0) mmol/L Calcium 9.9 D (8.4-10.2) mg/dL Magnesium 1.9 (1.6-2.6) mg/dL Total Bilirubin 0.6 (0.0-1.0) mg/dL AST 24 (5-37) U/L ALT 23 (0-40) U/L Alkaline Phosphatase 108 (39-117) U/L Lactate Dehydrogenase 140 (118-273) U/L C-Reactive Protein 0.33 (< or = 0.50) mg/dL Total Protein 7.2 (6.5-8.0) g/dL Albumin 4.0 (3.5-5.0) g/dL Lipase 894 H (8-78) U/L Urine Color Dark Yellow Urine Appearance Clear Urine pH 7.5 (5.0-9.0) Ur Specific [place] 1.025 (1.005-1.025) Urine Protein 30 (1+) H (Neg-Trace) mg/dL Urine Glucose (UA) Negative (Negative) mg/dL Urine Ketones 80 (Negative) mg/dL Urine Blood Negative (Negative) Urine Nitrite Negative (Negative) Ur Leukocyte Esterase Trace H (Negative) Urine RBC 0-2 (0-2) /HPF Urine WBC 0-5 (0-5) /HPF Ur Squamous Epith Cells 3-5 (0-2) /HPF Calcium Oxalate Crystal Present Urine Bacteria None Seen (None Seen) Hyaline Casts 3-5 (0-2) /LPF Urine Opiates Screen POSITIVE H (Not Detect) Ur Buprenorphine Scrn Not Detected (Not Detect) ng/mL Ur Oxycodone Screen Not Detected (Not Detect) ng/mL Urine Methadone Screen Not Detected (Not Detect) ng/mL Urine Fentanyl Screen Not Detected (Not Detect) Ur Barbiturates Screen POSITIVE H (Not Detect) Ur Phencyclidine Scrn Not Detected (Not Detect) Ur Amphetamines Screen Not Detected (Not Detect) U Benzodiazepines Scrn Not Detected (Not Detect) Urine Cocaine Screen Not Detected (Not Detect) U Marijuana (THC) Screen POSITIVE H (Not Detect) Ethyl Alcohol < 10 mg/dL Independent Interpretation I performed an independent interpretation of an: CT Scan Radiology Impression Discussion of test interpretation with radiology: I have reviewed the radiologist's reading. External Record Review External record reviewed: Inpatient record, Office record, Outpatient record, Prior outpatient labs, Prior outpatient radiology, Primary care record and Outside ED record Chronic Conditions Patient?s care impacted by: Other (alcohol use disorder, pancreatitis , ascites ) Social Determinants Patient?s care significantly limited by Social Determinants of Health including: Alcoholism and drug addiction in family Medications Administered Discontinued Medications Generic Name Dose Route Start Last Admin Trade Name Rahul PRN Reason Stop Dose Admin Diphenhydramine HCl 25 mg 01/02/24 16:20 01/02/24 16:52 Diphenhydramine Hcl 50 Mg/Ml Vial IVPUSH 01/02/24 16:21 25 mg ONCE ONE Administration Fentanyl 100 mcg 01/02/24 18:16 01/02/24 18:32 Fentanyl Citrate/Pf 100 Mcg/2 Ml Vial IVPUSH 01/02/24 18:17 100 mcg ONCE ONE Administration Protocol Hydromorphone HCl 1 mg 01/02/24 12:04 01/02/24 12:24 Hydromorphone Hcl 1 Mg/Ml Syringe IVPUSH 01/02/24 12:05 1 mg ONCE ONE Administration Protocol Hydromorphone HCl 1 mg 01/02/24 13:57 01/02/24 14:02 Hydromorphone Hcl 1 Mg/Ml Syringe IVPUSH 01/02/24 13:58 1 mg ONCE ONE Administration Protocol Hydromorphone HCl 1 mg 01/02/24 15:14 01/02/24 15:26 Hydromorphone Hcl 1 Mg/Ml Syringe IVPUSH 01/02/24 15:15 1 mg ONCE ONE Administration Protocol Hydromorphone HCl 1.5 mg 01/02/24 16:20 01/02/24 16:52 Hydromorphone Hcl 2 Mg/Ml Vial IVPUSH 01/02/24 16:21 1.5 mg ONCE ONE Administration Protocol Sodium Chloride 1,000 mls @ 999 mls/hr 01/02/24 12:15 01/02/24 14:02 Ns IV 01/02/24 13:15 Infused .Q1H1M MARVEL Infusion Piperacillin Sod/Tazobactam 50 mls @ 100 mls/hr 01/02/24 12:57 01/02/24 14:02 Sod 3.375 gm/ Sodium Chloride IV 01/02/24 13:26 Infused ONCE ONE Infusion Iohexol 100 ml 01/02/24 13:22 01/02/24 13:23 Iohexol 350 Mg/Ml 100 Ml Infus..Btl IV 01/02/24 13:23 85 ml ONCE ONE Administration Metoclopramide HCl 10 mg 01/02/24 16:20 01/02/24 16:52 Metoclopramide Hcl 10 Mg/2 Ml Vial IVPUSH 01/02/24 16:21 10 mg ONCE ONE Administration Critical Care Time Critical Care Time Critical Care Time: Yes Total Critical Care Time: 45 Attestation: I attest to this time spent taking care of the patient, obtaining history, physical, reviewing labs, imaging, speaking to my attending, specialist or hospitalist. Discharge Plan Discharge Clinical Impression: Pancreatitis Patient Disposition: [facility] Hospital Transfer Details: [facility] Elizabeth Steel Prescriptions: No Action multivitamin Tablet 1 tab PO DAILY atenolol 50 mg tablet 25 mg PO DAILY lorazepam 0.5 mg tablet 0.5 mg PO BID PRN (Reason: Anxiety) nicotine 21 mg/24 hr patch 24 hour 21 mg topical DAILY omeprazole 20 mg capsule,delayed release(DR/EC) 20 mg PO DAILY@0630 magnesium oxide 400 mg magnesium Capsule 400 mg PO DAILY trazodone 50 mg tablet 100 mg PO BEDTIME PRN (Reason: Sleep) methocarbamol 750 mg tablet 750 mg PO BID naltrexone 50 mg tablet 50 mg PO DAILY acetaminophen [Tylenol] 325 mg capsule 325 mg PO QID PRN (Reason: Pain) ondansetron 4 mg tablet,disintegrating 4 mg PO Q8H PRN (Reason: nausea and vomiting) Qty: 30 0RF gabapentin 100 mg capsule 100 mg PO TID Qty: 90 0RF sucralfate 1 gram tablet 1 g PO BID Qty: 90 0RF Print Language: Cuban
--- NOTE | 2024-01-02 11:59 | PC.NURSE ---
Pt presents to ED from home, reports epigastric pain and LUQ ABD pain since midnight. Reports pain is 9/10, burning sharp and aching. Accompanied by nausea and vomiting. Reports recent hospitalization here last week Sun-Sun for pancreatitis and gallstones. Daily alcohol drinker with hx of DTs, no alcohol use in >1 week. Alert and oriented, breathing even and unlabored, skin clammy. Tachycardia on bedside cardiac monitor technician, 120s
[2024-01-02 12:22] LABS: MANUAL DIFF FLAG NO
[2024-01-02] MEDS: HYDROmorphone HCl 1 MG/ML SYRINGE IVPUSH ×3 (12:24→15:26)
[2024-01-02] MEDS: 0.9 % Sodium Chloride 1,000 ML 999 ML IV (12:26)
[2024-01-02 12:41] LABS: C Reactive Protein 0.33 mg/dL (< or = 0.50); Ethanol < 10 mg/dL
[2024-01-02 12:43] LABS: Alanine Aminotransferase 23 U/L (0-40); Alkaline Phosphatase 108 U/L (39-117); Anion Gap 18 (12-20); Aspartate Amino Transferase 24 U/L (5-37); Bilirubin Total 0.6 mg/dL (0.0-1.0); Blood Urea Nitrogen 7 mg/dL (9-16); Calcium 9.9 mg/dL (8.4-10.2); Carbon Dioxide 23 mmol/L (22-29); Chloride 101 mmol/L (96-108); Creatinine Clr Calc Pharmacy 124.8; Estimated Glomerular Filt Rate > 60; Glucose Random 111 mg/dL (60-115); Magnesium 1.9 mg/dL (1.6-2.6); Potassium 3.6 mmol/L (3.3-5.1); Sodium 138 mmol/L (135-145); Total Protein 7.2 g/dL (6.5-8.0)
[2024-01-02 12:46] LABS: Lactic Acid 1.2 mmol/L (0.5-2.0)
[2024-01-02 12:56] LABS: Lipase 894 U/L (8-78)
[2024-01-02 13:21] LABS: Erythrocyte Sedimentation Rate 8 MM/HR (0-15)
[2024-01-02] MEDS: iohexoL 350 MG/ML 100 ML INFUS..BTL IV (13:23)
[2024-01-02 13:27] LABS: Appearance Urine Clear; Color Urine Dark Yellow; Glucose Urine UA Negative (Negative); Leukocyte Esterase Urine Trace (Negative); Nitrite Urine Negative (Negative); PH 7.5 (5.0-9.0); Specific Gravity - Urine 1.025 (1.005-1.025); UMIC TRIGGER UACC YES; Urine Blood Negative (Negative); Urine Ketones 80 mg/dL (Negative); Urine Protein 30 (1+) mg/dL (Neg-Trace)
[2024-01-02] MEDS: Piperacillin Sodium/Tazobactam 3.375 GM in 0.9 % Sodium Chloride 50 ML IV (13:27)
[2024-01-02 13:32] LABS: Amphetamine Screen Urine Not Detected (Not Detect); Barbiturates, Urine POSITIVE (Not Detect); Benzodiazepines Screen Urine Not Detected (Not Detect); Buprenorphine Scr Not Detected (Not Detect); Cannabinoid Screen Urine POSITIVE (Not Detect); Cocaine Screen Urine Not Detected (Not Detect); Fentanyl, urine Not Detected (Not Detect); Methadone Screen, Urine Not Detected (Not Detect); Opiate Screen Urine POSITIVE (Not Detect); Oxycodone Screen Urine Not Detected (Not Detect); Phencyclidine Screen Urine Not Detected (Not Detect)
[2024-01-02 13:39] LABS: Basophils Absolute Auto 0.1 X10*3/uL (0.0-0.2); Basophils Percent Auto 0.6 % (0-2); Eosinophils Absolute Auto 0.1 X10*3/uL (0.0-0.4); Eosinophils Percent Auto 0.4 % (0-4); Hematocrit 46.2 % (42.0-52.0); Hemoglobin 17.3 g/dl (14.0-18.0); Imm Gran Abs Auto 0.06 X10*3/uL (0.00-0.03); Imm Gran Pct Auto 0.4 % (0.0-0.4); Lymphocytes Absolute Auto 1.9 X10*3/uL (1.2-4.9); Lymphocytes Percent Auto 13.5 % (20-40); Mean Corpuscular HGB Conc 37.4 g/dl (31.0-36.0); Mean Corpuscular Hemoglobin 36.9 pg (27.0-33.0); Mean Corpuscular Volume 98.5 fL (80.0-98.0); Mean Platelet Volume 12.4 fL (9.4-12.4); Monocytes Percent Auto 7.3 % (2-11); Neutrophils Absolute Auto 11.1 x10*3/uL (2.0-8.3); Neutrophils Percent Auto 77.8 % (45-73); Platelet Count 294 X10*3/uL (160-400); Red Blood Count 4.69 X10*6/uL (4.60-5.80); Red Cell Distribution Width 13.2 % (11.0-16.0); White Blood Count 14.3 X10*3/uL (4.8-10.8)
[2024-01-02 13:40] LABS: Bacteria Urine None Seen (None Seen); Calcium Oxalate Crystals Urine Present; RBC Urine 0-2 /HPF (0-2); WBC Urine 0-5 /HPF (0-5)
[2024-01-02 14:55] LABS: Lactate Dehydrogenase 140 U/L (118-273)
--- NOTE | 2024-01-02 15:28 | PC.NURSE ---
pt medicated for 12/28 abd pain
--- NOTE | 2024-01-02 15:29 | PC.NURSE ---
pt a&ox3, vss, pt medicated for ab pain per orders, pt rr equal/non labored, family at bedside- inquiring about location of transfer, will continue with plan of care.
[2024-01-02] MEDS: HYDROmorphone HCl 2 MG/ML VIAL 1.5 MG IVPUSH (16:52)
[2024-01-02] MEDS: diphenhydrAMINE HCL 50 MG/ML VIAL 25 MG IVPUSH (16:52)
[2024-01-02] MEDS: Metoclopramide HCl 10 MG/2 ML VIAL IVPUSH (16:52)
[2024-01-02] MEDS: fentaNYL citrate/PF 100 MCG/2 ML VIAL IVPUSH (18:32)
--- NOTE | 2024-01-02 18:36 | PHA.MEDREC ---
Addendum entered by Alden Prasad 01/02/24 19:13: Med rec verified Original Note: Pharmacy Consult ? Medication Reconciliation Pharmacy has completed the medication reconciliation. Spoke to patient to confirm med list. Patient was just discharged from [facility] 12-26-23 no change in medication.
--- NOTE | 2024-01-02 18:45 | PC.NURSE ---
pt medicated for 01/28 pain, mri form filled out/faxed to mri, mri requested pt to be transported
[2024-01-02] MEDS: gadobutroL 7.5 ML VIAL IVPUSH (19:52)
[2024-01-02] MEDS: HYDROmorphone HCl 2 MG/ML VIAL IVPUSH (20:12)
[2024-01-02 20:22] LABS: Triglycerides 138 mg/dL (<150)
--- NOTE | 2024-01-02 20:51 | PC.NURSE ---
REPORT GIVEN TO ED RN AT [facility] :? . PT TRASNFERRED WITH [facility] AXOX4 PLEASANT NAD AT THIS TIME. PT REPORTS SOME PAIN RELIEF WITH LAST MED ADMINISTERED PER JUL. MOM AT BEDSIDE AT TIME OF TRANSFER.
== END 2024-01-02 20:53 | disposition short-term general hospital (02) ==
PROVIDERS: Physician Assistant; Student in an Organized Health Care Education/Training Program; Emergency Provider Emergency Medicine; PCP Internal Medicine
DX: K85.90 Acute pancreatitis without necrosis or infection, unspecified (principal); R11.2 Nausea with vomiting, unspecified; R10.9 Unspecified abdominal pain; F17.210 Nicotine dependence, cigarettes, uncomplicated; Z79.899 Other long term (current) drug therapy
CPT/HCPCS: 36415; 74177; 74183; 80053; 80307; 81001; 83605; 83615; 83690; 83735; 84478; 85025; 85652; 86140; 87040; 96361; 96374; 96375; 96376; 99285; A9585; J1170; J1200; J2543; J2765; J3010; Q9967

== ENCOUNTER 2024-03-13 08:24 | Emergency (ER) | payer OTHER, SELFPAY ==
[2024-03-13] VITALS (8 sets, daily range): BP systolic 138–173; BP diastolic 99–103; PULSE 120–147; RESP 16–22; TEMP 36.5; O2SAT 96–98; BMI 19.4
--- NOTE | 2024-03-13 | ECG_ITS ---
Test Reason : tachycardia Blood Pressure : / mmHG Vent. Rate : 138 BPM Atrial Rate : 138 BPM P-R Int : 122 ms QRS Dur : 066 ms QT Int : 298 ms P-R-T Axes : 075 015 068 degrees QTc Int : 451 ms Sinus tachycardia Right atrial enlargement Borderline ECG When compared with ECG of 26-DEC-2023 15:03, Vent. rate has increased BY 48 BPM T wave inversion no longer evident in Inferior leads T wave amplitude has increased in Anterolateral leads Referred By: Fabby Jenkins Electronically Signed By:Remy Elizabeth
--- NOTE | ~2024-03-13 | CT_ITS ---
EXAMINATION: CT ABDOMEN AND PELVIS WITH CONTRAST CLINICAL INFORMATION: Abdominal pain. History of pancreatitis. COMPARISON: CT dated January 02, 2024. TECHNIQUE: Multidetector volumetric images were obtained from the superior aspect of the liver through the pubic symphysis following administration 85 mL of Omnipaque 350 intravenous contrast. Sagittal and coronal reformatted images were obtained on the technologist's workstation. Oral contrast: No This CT examination was performed using dose optimization techniques as appropriate, variously including the following: *Automated exposure control *Adjustment of mA and/or kV according to patient size (this includes techniques or standardized protocols for targeted exams where dose is matched to indication/reason for exam; i.e. extremities or head) *Use of iterative reconstruction technique DLP: 409 mGy-cm FINDINGS: LUNG BASES: Patchy groundglass. LIVER, GALLBLADDER, AND BILIARY TREE: Liver measures 18 cm. No focal mass. Main portal vein and hepatic veins are patent. No intrahepatic biliary ductal dilatation. Fluid-filled different densities layering gallbladder. Common bile duct measures 4 mm. PANCREAS: Heterogeneous enhancement of the head and uncinate process as well as proximal body segment. Peripancreatic edema pattern/fluid extending into the lesser sac. The splenic artery is patent. The splenic vein is patent. SPLEEN: 11 cm without focal mass. ADRENAL GLANDS: No nodular lesions. KIDNEYS AND URETERS: No enhancing lesion or hydronephrosis. BLADDER: Fluid-filled. GASTROINTESTINAL TRACT: Edema pattern periduodenal and perigastric antrum. Concentric edema pattern involving the large intestine mostly the right hemicolon and transverse colon. No intestinal obstruction pattern. No pneumoperitoneum. Appendix is normal. Numerous diverticula throughout the left hemicolon.. ABDOMINAL WALL: No gross hernia LYMPH NODES: Nonspecific prominent mesenteric and retroperitoneal lymph nodes. VASCULAR: No aneurysm or dissection, abdominal aorta. Plaques in the distal abdominal aorta wall and common iliac arteries. PELVIC VISCERA: Normal-sized prostate gland. OSSEOUS STRUCTURES: Spondylosis resulting in grade 1 retrolisthesis, L5-S1 causing central spinal canal and neural foramina stenosis more conspicuous on the right side. CT/CT abdomen pelvis w IV con IMPRESSION: Acute pancreatitis with questionable developing necrotic pancreatitis, head and uncinate process. Edema pattern/fluid, lesser omentum. Biliary sludge. Hepatomegaly. Diverticular disease, left hemicolon. Spondylosis resulting grade 1 retrolisthesis L5-S1. Electronically signed by: Arturo Koch MD 03/13/2024 10:32 AM EDT RP
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
[2024-03-13] MEDS: HYDROmorphone HCl 1 MG/ML SYRINGE IVPUSH ×3 (08:56→11:54)
[2024-03-13] MEDS: LORazepam 2 MG/ML VIAL 1 MG IVPUSH (08:57)
[2024-03-13] MEDS: Lactated Ringers 1,000 ML 999 ML IV ×2 (08:58→09:17)
[2024-03-13 09:04] LABS: Basophils Absolute Auto 0.1 X10*3/uL (0.0-0.2); Basophils Percent Auto 0.5 % (0-2); Hematocrit 51.2 % (42.0-52.0); Hemoglobin 18.8 g/dl (14.0-18.0); Imm Gran Abs Auto 0.09 X10*3/uL (0.00-0.03); Imm Gran Pct Auto 0.4 % (0.0-0.4); Lymphocytes Percent Auto 12.3 % (20-40); MANUAL DIFF FLAG SCAN; Mean Corpuscular HGB Conc 36.7 g/dl (31.0-36.0); Mean Platelet Volume 11.1 fL (9.4-12.4); Monocytes Absolute Auto 0.9 X10*3/uL (0.1-1.2); Monocytes Percent Auto 3.7 % (2-11); Neutrophils Absolute Auto 20.4 x10*3/uL (2.0-8.3); Neutrophils Percent Auto 83.1 % (45-73); Platelet Count 488 X10*3/uL (160-400); Red Blood Count 5.69 X10*6/uL (4.60-5.80); Red Cell Distribution Width 14.6 % (11.0-16.0); SCAN SMEAR FLAG 1
[2024-03-13 09:05] LABS: White Blood Count 24.5 X10*3/uL (4.8-10.8)
[2024-03-13 09:08] LABS: Prothrombin Time 11.5 SEC (10.9-12.4)
[2024-03-13] MEDS: droPERidol 5 MG/2 ML VIAL 1.25 MG IVPUSH (09:09)
[2024-03-13] MEDS: Magnesium Sulfate/H2O 2 GM/50 ML PIGGYBACK IV (09:12)
[2024-03-13 09:13] LABS: Alanine Aminotransferase 18 U/L (0-40); Albumin Level 5.1 g/dL (3.5-5.0); Alkaline Phosphatase 101 U/L (39-117); Anion Gap 27 (12-20); Aspartate Amino Transferase 34 U/L (5-37); Bilirubin Direct 0.3 mg/dL (0.0-0.5); Bilirubin Total 0.8 mg/dL (0.0-1.0); Blood Urea Nitrogen 14 mg/dL (9-16); Calcium 10.7 mg/dL (8.4-10.2); Carbon Dioxide 21 mmol/L (22-29); Chloride 103 mmol/L (96-108); Estimated Glomerular Filt Rate > 60; Ethanol 14 mg/dL; Glucose Random 157 mg/dL (60-115); Lactate Dehydrogenase 172 U/L (118-273); Magnesium 1.8 mg/dL (1.6-2.6); Potassium 4.3 mmol/L (3.3-5.1); Sodium 147 mmol/L (135-145); Total Protein 8.9 g/dL (6.5-8.0)
[2024-03-13 09:22] LABS: SLIDE REVIEW VERIFIED
[2024-03-13 09:25] LABS: Lipase 1024 U/L (8-78)
[2024-03-13] MEDS: iohexoL 350 MG/ML 100 ML INFUS..BTL IV (09:35)
--- NOTE | 2024-03-13 09:56 | PC.NURSE ---
Pt presents to ED from home, reports N/V and severe upper ABD pain X12 hours worsening. Has hx of pancreatitis, was here in December and admitted for possible necrotizing pancreatitis. Reports he last drank alcohol yesterday, multiple drinks, hx of withdrawals but no seizures. Alert and oriented, breathing slightly elevated, skin clammy and pale. Pt presented in obvious distress and pain, dry heaving. Reports pain 10/10. IV placed and pt medicated per JUL. HR tachy 140-160s initially, improved after medication.
[2024-03-13 10:22] LABS: Lactic Acid 4.1 mmol/L (0.5-2.0)
[2024-03-13] MEDS: Piperacillin Sodium/Tazobactam 4.5 GM in 0.9 % Sodium Chloride 100 ML IV (11:23)
[2024-03-13 11:38] LABS: Amphetamine Screen Urine Not Detected (Not Detect); Barbiturates, Urine Not Detected (Not Detect); Benzodiazepines Screen Urine Not Detected (Not Detect); Buprenorphine Scr Not Detected (Not Detect); Cannabinoid Screen Urine POSITIVE (Not Detect); Cocaine Screen Urine Not Detected (Not Detect); Fentanyl, urine Not Detected (Not Detect); Methadone Screen, Urine Not Detected (Not Detect); Opiate Screen Urine Not Detected (Not Detect); Oxycodone Screen Urine Not Detected (Not Detect); Phencyclidine Screen Urine Not Detected (Not Detect)
[2024-03-13 12:05] LABS: Reflex Lactate? Lactic Acid Added
== END 2024-03-13 12:35 | disposition short-term general hospital (02) ==
PROVIDERS: Emergency Provider Emergency Medicine; PCP Internal Medicine
DX: K85.90 Acute pancreatitis without necrosis or infection, unspecified (principal); E87.20 Acidosis, unspecified; R10.10 Upper abdominal pain, unspecified; R11.2 Nausea with vomiting, unspecified; M54.50 Low back pain, unspecified; R00.0 Tachycardia, unspecified; D72.829 Elevated white blood cell count, unspecified; Z51.81 Encounter for therapeutic drug level monitoring; Z79.899 Other long term (current) drug therapy
CPT/HCPCS: 36415; 74177; 80048; 80076; 80307; 83605; 83615; 83690; 83735; 85025; 85610; 87040; 93005; 96361; 96365; 96367; 96375; 96376; 99285; J1171; J1790; J2060; J2543; J3475; J7120; Q9967

== ENCOUNTER → 2024-03-13 08:42 | Outpatient (BNV) | payer OTHER, SELFPAY | PROVIDERS: Emergency Provider Emergency Medicine; PCP Internal Medicine; Visit Provider Internal Medicine Cardiovascular Disease | DX: R00.0 Tachycardia, unspecified (principal) | CPT/HCPCS: 93010 ==

== ENCOUNTER → 2024-03-13 08:54 | Outpatient (BNV) | payer OTHER, SELFPAY | PROVIDERS: Emergency Provider Emergency Medicine; PCP Internal Medicine; Visit Provider Radiology Diagnostic Radiology | DX: R10.9 Unspecified abdominal pain (principal) | CPT/HCPCS: 74177 ==